=== PATIENT | female | born 1960 | race Caucasian/White ===

== ENCOUNTER 2025-01-11 17:23 | Inpatient (IN) | payer OTHER, MEDICAID, SELFPAY ==
[2025-01-11] VITALS (9 sets, daily range): BP systolic 103–141; BP diastolic 63–80; PULSE 95–107; RESP 14–29; TEMP 36.4–36.9; O2SAT 94–100; BMI 16.6
--- NOTE | ~2025-01-11 | XR_ITS ---
CHEST RADIOGRAPH, PA AND LATERAL CLINICAL HISTORY: SOA . COMPARISON: 09/07/2018 TECHNIQUE: PA and lateral views of the chest. FINDINGS Right internal jugular tunneled hemodialysis catheter identified with its tip projecting over the rig ht atrium. The remainder of the cardiomediastinal silhouette is otherwise unremarkable. Increased interstitial markings are identified bilaterally, findings suggesting mild pulmonary vascul ar congestion. The remainder of the lungs are otherwise clear. Left upper extremity vascular stenting identified. IMPRESSION: Mild pulmonary vascular congestion, without focal infiltrate or effusion. Reviewed, dictated and finalized at location A. AL RESIDENT
--- NOTE | ~2025-01-11 | XR_ITS ---
HISTORY: trauma COMPARISON: None TECHNIQUE: 2 views of the right hip along with an AP view of the pelvis FINDINGS: Acute fracture of the right femoral neck is identified. Minimal displacement of the fracture fragments is noted. Prior fracture deformity is suspected within the right inferior pubic ramus Screw fixation of the left femur is present. Age advanced mineralization. IMPRESSION: Acute minimally displaced fracture of the right femoral neck, as detailed above. Reviewed, dictated and finalized at location A. ICE OR WORK DISPATCHER IMPRESSION: Acute minimally displaced fracture of the right femoral neck, as de tailed above.
--- NOTE | ~2025-01-11 | XR_ITS ---
EXAMINATION: XR surgery orthopedic DATE: 01/14/2025 16:45 DRYCLEANER INDICATION: RIGHT HIP PINNING . TECHNIQUE: 2 fluoroscopic images of the right hip were obtained during right hip pinning, performed b brennon Jarquin. I was not present during the procedure. Fluoroscopy exposure time was 5 minutes 49.5 s econds. Air Kerma 37.972 mGy. DAP 7.5275 mGym2. COMPARISON: X-ray right hip 01/11/2025 FINDINGS/IMPRESSION: Fluoroscopic documentation of right hip pinning. Please refer to the operative note for complete proc edural details . Reviewed, dictated and finalized at location K. LEANER
--- NOTE | ~2025-01-11 | XR_ITS ---
HISTORY: trauma COMPARISON: None TECHNIQUE: 3 views of the right knee were performed FINDINGS: No acute or subacute fracture, erosion, lytic or sclerotic lesion. Medial tibiofemoral joint space narrowing is identified. No suprapatellar joint effusion is identified. The infrapatellar joint space is clear. IMPRESSION: Degenerative disease without acute fracture. Reviewed, dictated and finalized at location A. RESSOR REPAIRER
--- OUTSIDE RECORDS SUMMARY | 2025-01-11 17:32 | XMS_ITS ---
Author Organization [facility] Address [address] [place] [address] Care Team Providers Care Television Parts Tester Name Role Phone Chinedu Felton MD Primary Care Provider [phone] Darrian Reese MD Unavailable [phone] Manuel Okeefe DO Unavailable [phone] Dialysis Access Sites Type Status Location Placement Date Removal Da te AV fistula Active Left Upper Arm - Anterior 07/07/2022 AV graft Active Left Upper Arm - Anterior 05/31/2022 Hemodialysis Cath Double Inactive Right N pat (side) - Anterior 03/14/2022 08/18/2022 Procedures Procedure Name Priority Date/Time Associated Diagnosis Comments HEPATITIS PANEL, ACUTE STAT 03/14/2022 3:35 PM CDT from Last 3 Months or Most Recently Relevant to Health Maintenance Allergies No known active allergies Medications albuterol HFA (PROVENTIL HFA,VENTOLIN HFA,PROAIR HFA) 90 mcg/actuation inhaler Inhale 2 puffs every 4 (four) hours as needed Active budesonide-formote roL (SYMBICORT) 160-4.5 mcg/actuation inhaler Inhale 2 puffs 4 (four) times a day Active ergocalciferol (VITAMIN D) 50,000 unit capsuleIndications :Vitamin D Deficiency Take 1 capsule (50,000 Units total) by mouth every 30 (thirty) days Taken every Monday Active hydrocortisone 2.5 % cream Apply 1 application topically daily as needed for irritation (back prn may leave at bedside) Active ipratropium-albute roL (DUO-NEB) 0.5-2.5 mg/3 mL nebulizer solutionIndication s:Chronic Obstructive Pulmonary Disease with Bronchospasms Take 2.5 mL by nebulization every 6 (six) hours as needed for wheezing Active oxygenIndications: Dyspnea Administer 3 L/min into each nostril as needed States is on 3L continuously Active rOPINIRole XL (REQUIP XL) 2 mg 24 hr tablet Take 1 tablet (2 mg total) by mouth nightly 06/10/20 22 Active traZODone (DESYREL) 100 mg tabletIndications: insomnia associated with depression Take 1 tablet (100 mg total) by mouth nightly 06/10/20 22 Active FLUoxetine (PROzac) 40 mg capsule Take 1 capsule (40 mg total) by mouth daily 06/24/20 22 Active gabapentin (NEURONTIN) 300 mg capsule Take 2 capsules (600 mg total) by mouth 4 (four) times a day 600 mg taking 3 times daily 06/24/20 22 Active magnesium oxide (MAG-OX) 400 mg (241.3 mg elemental magnesium) tabletIndications: hypomagnesemia Take 1 tablet (400 mg total) by mouth 2 (two) times a day Active doxepin (SINEquan) 100 mg capsule Take 1 capsule (100 mg total) by mouth nightly Active sodium bicarbonate 650 mg tablet Take 1 tablet (650 mg total) by mouth 2 (two) times a day 06/10/20 20 Active lidocaine (LMX) 4 % cream 1 application as needed TO PAINFUL RASH ON TRUNK Externally FOUR TIMES PER DAY Active Spiriva with HandiHaler 18 mcg per inhalation capsuleIndications :Maintenance Therapy for Asthma 1 puff (1 capsule total) daily Active clotrimazole 1 % cream Apply 1 Application topically daily as needed Applies around stoma wafer- reddenned rash 02/04/20 23 Active OLANZapine (ZyPREXA) 10 mg tablet 07/26/20 23 Active lamoTRIgine (LaMICtal) 100 mg tablet 07/26/20 23 Active clonazePAM (KlonoPIN) 0.5 mg disintegrating tablet Take 1 tablet (0.5 mg total) by mouth 2 (two) times a day as needed for seizures Active carbidopa-levodopa (SINEMET) 10-100 mg per tablet every 8 hours 09/27/20 23 Active ketoconazole (NIZORAL) 2 % cream daily Active sevelamer (RENVELA) 800 mg tablet 08/08/20 Active mirtazapine (REMERON ESTHELA-TAB) 30 mg disintegrating tablet 09/05/20 Active nystatin powder Apply topically daily 09/12/20 Active pregabalin (LYRICA) 150 mg capsule 1 capsule (150 mg total) 09/19/20 Active QUEtiapine (SEROquel) 25 mg tablet every 12 hours Activ e methylPREDNISolone (Medrol, Christoph,) 4 mg DosepackIndication s:Chronic obstructive pulmonary disease with acute exacerbation ([facility]) follow package directions 1 packet 10/03/20 Active Additional Information Patient not taking.Reported on 03/19/2024 Active Problems Problem Noted Date Diagnosed Date ESRD (end stage renal disease) on dialysis 07/20 Assessment & Plan (11/28/2023 3:20 PM WIRELESS CELLULAR TECHNICIAN): Maturing right arm AV fistula. May start utilizing right arm AV fistula for dialysis. Follow-up in 1 month for re-evaluation, possible Perma catheter removal Assessment & Plan (08/31/2023 2:02 PM CDT): Impression: Patient underwent a right brachiocephalic AV fistula creation. She is currently being dialyzed through a right-sided Perma catheter without any complications. Surgical incision to the antecubital fossa is well approximated, healed. Small remnant of suture was noted and removed. Audible bruit and palpable thrill noted on exam. Plan: Continue utilizing right-sided Perma catheter for dialysis as per Nephrology. -we will have patient follow-up in 6-8 weeks for re-evaluation with AV scan. ESRD (end stage renal disease) ([facility]/HCC) 022 Assessment & Plan (08/08/2023 10:31 AM CDT): Cellulitis to the left lower extremity has resolved. No signs of acute infection to either lower extremity. Plan: Can continue to follow-up in 2 days for surgery for a graft creation. Assessment & Plan (07/20/2023 2:42 PM CDT): Patient following up today regarding permanent access creation needed for the right upper extremity. She has had multiple attempts at permanent access to the left upper extremity which is currently thrombosed and for which she has previously underwent a thrombectomy x2, and canceled her 3rd thrombectomy due to being admitted at [facility] and is just now following up. She being dialyzed through a right IJ Perma catheter. Vein mapping today shows that her veins are sizable for potential fistula creation. Discussed the procedure with all of its potential risks for new access creation throughout upper extremity fistula versus graft. Answered all questions at this time. She is agreeable wishes to proceed. Will schedule a new dialysis access creation to right upper extremity with Dr. Franklyn Rojo. Assessment & Plan (01/06/2023 12:09 PM WIRELESS CELLULAR TECHNICIAN): Patient is following up today for loss of bruit and thrill. She is status post thrombectomy of her brachial axillary graft 01/05/2023. Sutures are intact today. Mild ecchymosis noted to the left upper extremity. She is scheduled for a Perma catheter placement today and will be scheduled for open thrombectomy next week with Dr. Star Rojo. Patient has been made aware of the plan. She is agreeable. Assessment & Plan (07/28/2022 4:24 PM CDT): Status post fistulogram 3 weeks ago had a thrombectomy with stent placed on 10/16/2022. Has been utilizing the graft without issue for the past 3 weeks. Is here to have the suture removal and discussion of Perma catheter being removed. Primary catheter is in the right IJ placed by Dr. Clemons 03/14/2022. Assessment & Plan (06/14/2022 4:13 PM CDT): Patient is status post creation or left brachial artery access vein graft created on 05/31/2022. Patient is here the access center to have the stitches and junaid removed scans today show no outflow stenosis. Patient encouraged to start using the graft to [place] and return within 2-3 weeks to have her Perma catheter removed. Plan: Continue dialysis as per nephrology utilizing the left AV graft. Assessment & Plan (05/17/2022 12:39 PM CDT): Risks benefits alternatives to left upper extremity fistula versus graft creation were discussed. Risks including bleeding, infection, nerve injury, steal syndrome, need for further surgery. She wished to proceed. Acute on chronic renal insufficiency 03/12/2022 Age related osteoporosis 03/12/2022 Anxiety state 03/12/2022 Cataract 03/12/2022 Chronic pain syndrome 03/12/2022 Chronic respiratory failure 03/12/2022 Colostomy and enterostomy malfunction (CMS/[facility]) 03/12/2022 Essential hypertension 03/12/2022 Assessment & Plan (08/08/2023 10:29 AM CDT): Continue current medical management. Assessment & Plan (07/20/2023 2:37 PM CDT): Continue medical management as per PCP Assessment & Plan (07/28/2022 4:24 PM CDT): Chronic stable hypertension being controlled with medications. Continue taking medication as per Nephrology and PCP. Assessment & Plan (06/14/2022 4:13 PM CDT): Stable chronic hypertension that is being controlled with medications. Plan: Continue taking medications as per PCP. Generalized anxiety disorder 03/12/2022 Hyperparathyroidism due to renal insufficiency 0 03/12/2022 Hyperphosphatemia 03/12/2022 Lumbar radiculopathy 03/12/2022 Nicotine dependence, unspecified, uncomplicated 03/12/2022 Obesity 03/12/2022 Poor vision 03/12/2022 Primary insomnia 03/12/2022 Restless legs syndrome 03/12/2022 Vitamin D deficiency 03/12/2022 Fracture of pubis 02/24/2022 Pain in pelvis 02/24/2022 Major depressive disorder 07/20/2020 Severe recurrent major depre ssion without psychotic features 06/10/2019 Bradycardia 06/04/2019 High output ileostomy (CMS/HCC) 08/29/2018 Irritant contact dermatitis due to ileostomy ([facility]/HCC) 08/29/2018 Asthma 04/14/2010 Chronic obstructive pulmonary disease 02/16/2010 Immunizations Name Administration Dates Next Due Heplisav-b (Hepatitis B) 04/27/2022,03/23/2022 Influenza, Quadrivalent, Spl it, Preservative Free, Intramuscular 08/25/2021 Influenza, Trivalent, Preser vative Free, Intramuscular 10/10/2017 Moderna SARS-CoV-2 Monovalen t Vaccination (12+ YRS) 02/25/2022,04/08/2021,03/11/2021 Social History Tobacco Use Types Packs/Day Years Used Date Smoking Tobacco: Every Day Cigarettes 0.5 45 Smokeless Tobacco: Never Tobacco Cessation:Ready to Q uit: Not Asked; Counseling Given: Not Answered Comments:last smoked 9-14 am Alcohol Use Standard Drinks/Week Comments Yes 0 (1 standard drink = 0.6 oz pur e alcohol) occasional AUDIT-C Answer Date Recorded Q1: How often do you have a drink containing alc ohol? Never 08/10/2023 Average Number of Drinks Not on file 023 Frequency of Binge Drinking Not on file 07/28 Personal Safety Answer Date Recorded Have you ever been in or are you currently in a harmful physical or emotional relationship or is someone making you feel afraid or unsafe? Denies 08/10/2023 Comments Unknown Sex and Gender Information Value Date Recorded Sex Assigned at Not on file Legal Sex Female 8:56 AM WIRELESS CELLULAR TECHNICIAN Gender Identity Not on file Sexual Orientation Not on file Last Filed Vital Signs Vital Sign Reading Time Taken Comments Blood Pressure 102/65 11/28/2023 2:51 PM WIRELESS CELLULAR TECHNICIAN Pulse 84 11/28/2023 2:51 PM WIRELESS CELLULAR TECHNICIAN Temperature 36.8 C (98.2 F) 11/28/2023 2:51 PM WIRELESS CELLULAR TECHNICIAN Respiratory Rate 18 10/03/2023 11:20 AM WIRELESS CELLULAR TECHNICIAN Oxygen Saturation 98% 11/28/2023 2:51 PM WIRELESS CELLULAR TECHNICIAN 4 L daILY Inhaled Oxygen Concentration - - Weight 68 kg (150 lb) 11/28/2023 2:51 PM WIRELESS CELLULAR TECHNICIAN Height 162.6 cm (5' 4 ) 11/28/2023 2:51 PM WIRELESS CELLULAR TECHNICIAN Body Mass Index 25.75 11/28/2023 2:51 PM WIRELESS CELLULAR TECHNICIAN Results * Hepatitis panel, acute (03/14/2022 3:35 PM CDT) Hep A IgM Nonreactive Nonreactive CERNER Comment: Interpretive Data: If Hep A IgM Ab is reported as Equivocal, a new sample should be drawn in two weeks for testing. Current interpretive data was last revised on 20. Hep B core IgM Nonreactive Nonreactive MIRIAM Comment: Interpretive Data If HepB Core IgM Ab is reported as Equivocal, a new sample should be drawn in two weeks for testing. Current interpretive data was last revised on 20. Hep C Ab Nonreactive Nonreactive MIRIAM Comment: Interpretive Data Nonreactive: Antibodies to HCV not detected. Does NOT exclude the possibility of recent exposure to HCV. Equivocal: Equivocal for HCV antibodies. Supplemental molecular testing will be automatically performed to determine infection status in accordance with current CDC screening recommendations. Reactive: Positive for HCV antibodies. This may represent current or past HCV infection. Supplemental molecular testing will be automatically performed to determine current infection status in accordance with current CDC screening recommendations. Interpretive data was last revised on 2020. HepBsAg Nonreactive Nonreactive MIRIAM Blood 03/14/2022 3:35 PM CDT 03/14/2022 3:47 PM CDT us Lux Merino MD LAB MICROBIOLOGY - GENERAL ORD ERABLES Final Result MIRIAM [facility] [id number] Department [place] [address] from Last 3 Months or Most Recently Relevant to Health Maintenance
--- OUTSIDE RECORDS SUMMARY | 2025-01-11 17:32 | XMS_ITS ---
Author Organization [facility] Address [address] [place] [address] Care Team Providers Care Funeral Location Manager Name Role Phone Chinedu Felton Primary Care Provider [phone] REASON FOR VISIT pain and refill Medications Medication SIG (Take, Route, Fr equency, Duration) Notes Start Date End Date Status rOPINIRole HCl 0.5 MG 1 tablet 1 to 3 ho urs before bedtime Orally Once a day for 30 days 09/05/2024 Active HYDROmorphone HCl 4 MG 1 tablet as needed Orally EVERY 4 HOURS As needed SEVERE PAIN OR SHORTNESS OF BREATH 01/02/2025 Active Social History Sex Assigned At : Social History Observation Description Sex Assigned At Female Encounters Encounter Location Date Provider Diagnosis [address] [id number] 01/02/2025 Chinedu Felton Chronic pain syndrome G89.4 and Restless leg syndrome G25.81 Assessments Encounter Date Diagnosis (ICD Code) Assessment Notes Treatment Notes Treatment Clinical Notes Section Notes 01/02/2025 Chronic pain syndrome (ICD-10 - G89.4) 01/02/2025 Restless leg syndrome (ICD-10 - G25.81) Plan Of Treatment Medication Medication Name Sig Start Date Stop Date Notes rOPINIRole HCl 0.5 MG 1 tablet 1 to 3 ho urs before bedtime Orally Once a day for 30 days 09/05/2024 HYDROmorphone HCl 4 MG 1 tablet as neede d Orally EVERY 4 HOURS 01/02/2025 Progress Notes * Brian ZALDIVARDOB: 1 (64 yo F)Acc No.[id number]:01/02/2025 Patient: Brian PRICE :1960 A ge:64 Y S ex:Female Address:[address] [place] [address] [place], [address] * Refills Refill HYDROmorphone HCl Tablet, 4 MG, Orally, 28, 1 tablet as needed, EVERY 4 HOURS, Refills=0 Refill rOPINIRole HCl Tablet, 0.5 MG, Orally, 30, 1 tablet 1 to 3 hours before bedtime, Once a day, 30 days, Refills=5 * true * Date: Generated for Gris leung/Bridget/Pedroitting on: 0 01/11/2025 05:32 PM BUSINESS SUPPORT SPECIALIST
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
--- OUTSIDE RECORDS SUMMARY | 2025-01-11 17:32 | XMS_ITS | Patient Health Record ---
Author Organization [facility] Address [address] [place] [address] Support Name Relationship Address Phone JESUS ZALDIVAR Guarantor Unknown [phone] Reason For Referral No Information Medications Medication SIG (Take, Route, Frequency, Duration) Notes Start Date End Date Status Pentazocine-Naloxone HCl 50-0.5 MG 1 tablet as needed Orally every 6 hrs for 30 days FOR SEVERE CHRONIC/NON-ACUT E PAIN 01/13/2020 Active clonazePAM 0.5 MG 1 tablet Orally twic e a day for 30 days 12/09/2019 Active HYDROcodone-Acetamino phen 5-325 MG 2 tablets as needed Orally every 6 hrs for 30 days FOR SEVERE CHRONIC/NON-ACUT E PAIN 12/30/2019 Active clonazePAM 0.5 MG 1 tablet as needed Orally twice a day for 30 days 11/21/2019 Active Problems Problem Type SNOMED Code ICD Code Onset Dates Problem Status W/U Status Risk Notes Problem Fibromyalgia (959042950) Fibromyalgia (M79.7) Active confirmed Problem Recurrent falls (384749483) Frequent falls (R29.6) Active confirmed Problem COPD - Chronic obstructive pulmonary disease (68314516) COPD (chronic obstructive pulmonary disease) (J44.9) Active confirmed Problem Anxiety (26895191) Anxiety (F41.9) Active confirmed Problem Diabetes mellitus (93107273) Diabetes mellitus (E11.9) Active confirmed Problem 947245642 S/p left hip fracture (Z87.81) Active confirmed Problem Chronic kidney disease stage 4 (549494297) CKD (chronic kidney disease), stage IV (N18.4) Active confirmed Problem 147103981 Closed fracture of left hip requiring operative repair with routine healing (S72.002D) Active confirmed Plan Of Treatment No Information Medical (General) History Medical History History ICD Code Left hip fracture s/p ORIF massive GI bleed short bowel syndrome CKD stage 3 COPD Diabetes melitus fibromyalgia chronic pain SURGICAL HISTORY: appendecto my, cholecystectomy, Left hip ORIF, bowel resection FAMILY HISTORY: reviewed and non contrib utory SOCIAL HISTORY: current smok er- smoking 1 ppd, denies alcohol or drug use but is dependent on narcotic pain medications
--- OUTSIDE RECORDS SUMMARY | 2025-01-11 17:32 | XMS_ITS | Referral Summary ---
Author Organization [facility] Address [address] [place] [address] Care Team Providers Care Phonograph Needle Tip Maker Name Role Phone Chinedu Felton MD Primary Care Provider [phone] Darrian Reese MD Unavailable [phone] Manuel Okeefe DO Unavailable Allergies No known [...] 07/20 Assessment & Plan (11/28/2023 3:20 PM MAILHOUSE OPERATOR): Maturing right arm AV fistula. May start [...] AV scan. ESRD (end stage renal disease) ([facility]) 022 Assessment & Plan (08/08/2023 10:31 AM [...] 3rd thrombectomy due to being admitted at [facility] and is just now following up. [...] Rojo. Assessment & Plan (01/06/2023 12:09 PM MAILHOUSE OPERATOR): Patient is following up today for loss [...] respiratory failure 03/12/2022 Colostomy and enterostomy malfunction ([facility]) 03/12/2022 Essential hypertension 03/12/2022 [...] features 06/10/2019 Bradycardia 06/04/2019 High output ileostomy ([facility]) 08/29/2018 Irritant contact dermatitis due to ileostomy ( S/[facility]) 08/29/2018 Asthma 04/14/2010 Chronic obstructive pulmonary disease [...] on file Legal Sex Female 8:56 AM MAILHOUSE OPERATOR Gender Identity Not on file Sexual Orientation Not on file Last Filed Vital Signs Vital Sign Reading Time Taken Comments Blood Pressure 102/65 11/28/2023 2:51 PM MAILHOUSE OPERATOR Pulse 84 11/28/2023 2:51 PM MAILHOUSE OPERATOR Temperature 36.8 C (98.2 F) 11/28/2023 2:51 PM MAILHOUSE OPERATOR Respiratory Rate 18 10/03/2023 11:20 AM MAILHOUSE OPERATOR Oxygen Saturation 98% 11/28/2023 2:51 PM MAILHOUSE OPERATOR 4 L daILY Inhaled Oxygen Concentration - - Weight 68 kg (150 lb) 11/28/2023 2:51 PM MAILHOUSE OPERATOR Height 162.6 cm (5' 4 ) 11/28/2023 2:51 PM MAILHOUSE OPERATOR Body Mass Index 25.75 11/28/2023 2:51 PM MAILHOUSE OPERATOR Plan of Treatment Not on file Medical Devices Implanted Type Area Incising Machine Operator Device Identifier Shelf Expiration Date Model / Serial / Lot Angio Dynamics Kit Catheter Hemodialysis Valved Sheath Tri Ball Tunneler Duramax [id number] Polyurethane [id number] - [id number] - [id number] Implanted:Qty: 1 on 03/14/2022 at [facility] Catheter Angio Dynamics 03/27/2024 [id number] / [id number] / Unknown Left: Hip Wl [employer] 4-7mm 45cm Stretch Peripheral Standard Security Auditor Graft Vascular [id number] - [id number] - [id number] Implanted:Qty: 1 on 05/31/2022 by Franklyn Rojo MD at [facility] Left: Arm Wl [employer] [id number] 02/05/2027 [id number] / [id number] / Bard Peripheral Vascular Stent Graft Endovascular Arteriovenous [id number] Covera [id number] - [id number] Implanted:Qty: 1 on 07/07/2022 by Franklyn Rojo MD at [facility] Left: Arm Bard Peripheral Vascular [id number] 05/07/2023 [id number] / / [id number] Bard Peripheral Vascular Stent Graft Endovascular Arteriovenous [id number] Covera [id number] - [id number] Implanted:Qty: 1 on 01/05/2023 by Franklyn Rojo MD at [facility] Bard Peripheral Vascular 07/29/2024 [id number] / / [id number] Angio Dynamics Duraflow Embosafe 15.5fr 24cm Basic 2 Lumen Kit Catheter [id number] - [id number] Implanted:Qty: 1 on 01/06/2023 by Franklyn Rojo MD at [facility] Angio Dynamics [id number] / / Procedures Procedure Name Priority Date/Time Associated Diagnosis Comments HEPATITIS PANEL, ACUTE STAT 03/14/2022 3:35 PM CDT from Last 3 Months or Most Recently Relevant to Health Maintenance Results * Hepatitis panel, acute (03/14/2022 3:35 PM CDT) Hep A IgM Nonreactive Nonreactive [facility] Comment: Interpretive Data: If Hep A IgM [...] revised on 2020. HepBsAg Nonreactive Nonreactive [facility] Blood 03/14/2022 3:35 PM CDT 03/14/2022 3:47 PM CDT us Lux Merino MD LAB MICROBIOLOGY - GENERAL ORD ERABLES Final Result [place] [id number] [address] Department [place] [address] from Last 3 Months or Most Recently Relevant to Health Maintenance Insurance MEDICARE [facility] IDPA IDPA [employer] ADV[employer] CHOICE PPO Advance Directives For more information, please contact: [phone] * Full Code (Latest Code Status on File) Date Activated Date Inactivated Comments 03/12/2022 6:49 AM 03/17/2022 7:32 PM Care Teams Phonograph Needle Tip Maker Relationship Specialty Start Date End Date Chinedu Felton MD [address] [facility] [place] [address] PCP - General 03/11/22 Darrian Reese MD [address] [place] [address] Consulting Physician Internal Medicine 06/30/22 Manuel Okeefe DO [address] [place] [address] Family Medicine 03/19/24
--- OUTSIDE RECORDS SUMMARY | 2025-01-11 17:32 | XMS_ITS | Encounter Summary ---
Author Organization [facility] Healthcare Address [address] [place] [address] Care Team Providers Care Technical Operations Vice President Name Role Phone Chinedu Felton MD Primary Care Provider [phone] Darrian Reese MD Unavailable [phone] Manuel Okeefe DO Unavailable [phone] Encounter Details Date Type Department Care Team (Late st Contact Info) Description 02/09/2023 Telephone [facility] Medical Office Building [address] [place] [address] Franklyn Rojo MD [facility] [address] [place], [place] [id number] Social History Tobacco Use Types Packs/Day Years Used Date Smoking Tobacco: Every Day Cigarettes 0.5 45 Smokeless Tobacco: Never Comments:last smoked yesterd ay Alcohol Use Standard Drinks/Week Comments Yes 0 (1 standard drink = 0.6 oz pur e alcohol) occasional AUDIT-C Answer Date Recorded Q1: How often do you have a drink containing alcohol? Never 02/08/2023 Q2: How many drinks containi ng alcohol do you have on a typical day when you are drinking? Patient does not drink Q3: How often do you have si x or more drinks on one occasion? Never 02/08/2023 Comments Unknown Sex and Gender Information Value Date Recorded Sex Assigned at Not on file Legal Sex Female 8:56 AM GROUND SERVICE EQUIPMENT MECHANIC Gender Identity Not on file Sexual Orientation Not on file documented as of this encounter Plan of Treatment Not on file documented as of this encounter Visit Diagnoses Not on filedocumented in this encounter Care Teams Technical Operations Vice President Relationship Specialty Start Date End Date Chinedu Felton MD [address] [facility] [place] [address] PCP - General 03/11/22 Darrian Reese MD [address] [place] [address] Consulting Physician Internal Medicine 06/30/22 Manuel Okeefe DO [address] [place] [address] Family Medicine 03/19/24 documented as of this encounter
--- OUTSIDE RECORDS SUMMARY | 2025-01-11 17:32 | XMS_ITS | Encounter Summary ---
Author Organization [facility] Healthcare Address [address] [place] [address] Care Team Providers Care Cold Strip Roller Name Role Phone Chinedu Felton MD Primary Care Provider [phone] Darrian Reese MD Unavailable [phone] Manuel Okeefe DO Unavailable [phone] Encounter Details Date Type Department Care Team (Late st Contact Info) Description 01/18/2023 Telephone [facility] [address] [facility] [address] [place] [address] [place] [address] [place] [address] [address] [place] [address] Social History Tobacco Use Types Packs/Day Years Used Date Smoking Tobacco: Every Day Cigarettes 0.4 45 Smokeless Tobacco: Never Comments:last smoked yesterd ay Alcohol Use Standard Drinks/Week Comments Yes 0 (1 standard drink = 0.6 oz pur e alcohol) occasional AUDIT-C Answer Date Recorded Q1: How often do you have a drink containing alcohol? Never 01/19/2023 Q2: How many drinks containi ng alcohol do you have on a typical day when you are drinking? Patient does not drink Q3: How often do you have si x or more drinks on one occasion? Never 01/19/2023 Comments Unknown Sex and Gender Information Value Date Recorded Sex Assigned at Not on file Legal Sex Female 8:56 AM AUTOMOTIVE CUSTOMER EXPERIENCE ADVISOR Gender Identity Not on file Sexual Orientation Not on file documented as of this encounter Plan of Treatment Not on file documented as of this encounter Visit Diagnoses Not on filedocumented in this encounter Care Teams Cold Strip Roller Relationship Specialty Start Date End Date Chinedu Felton MD [address] [facility] [place] [place] [address] PCP - General 03/11/22 Darrian Reese MD [address] [place] [address] Consulting Physician Internal Medicine 06/30/22 Manuel Okeefe DO [address] [place] [address] Family Medicine 03/19/24 documented as of this encounter
--- OUTSIDE RECORDS SUMMARY | 2025-01-11 17:32 | XMS_ITS | Encounter Summary ---
Author Organization [facility] Healthcare Address [address] [place] [address] Care Team Providers Care First Front Ventilator Name Role Phone Chinedu Felton MD Primary Care Provider [phone] Darrian Reese MD Unavailable [phone] Manuel Okeefe DO Unavailable [phone] Encounter Details Date Type Department Care Team (Late st Contact Info) Description 01/06/2023 Telephone [facility] [address] [facility] [address] [place] [address] [place] [address] [place] [address] [address] [place] [address] Social History Tobacco Use Types Packs/Day Years Used Date Smoking Tobacco: Every Day Cigarettes 0.4 45 Smokeless Tobacco: Never Comments:last smoked yesterd ay Alcohol Use Standard Drinks/Week Comments Yes 0 (1 standard drink = 0.6 oz pur e alcohol) occasional AUDIT-C Answer Date Recorded Q1: How often do you have a drink containing alcohol? Never 01/05/2023 Q2: How many drinks containi ng alcohol do you have on a typical day when you are drinking? Patient does not drink Q3: How often do you have si x or more drinks on one occasion? Never 01/05/2023 Comments Unknown Sex and Gender Information Value Date Recorded Sex Assigned at Not on file Legal Sex Female 8:56 AM SCIENTIFIC DIRECTOR Gender Identity Not on file Sexual Orientation Not on file documented as of this encounter Plan of Treatment Not on file documented as of this encounter Visit Diagnoses Not on filedocumented in this encounter Care Teams First Front Ventilator Relationship Specialty Start Date End Date Chinedu Felton MD [address] [facility] [place] [address] PCP - General 03/11/22 Darrian Reese MD [address] [place] [address] Consulting Physician Internal Medicine 06/30/22 Manuel Okeefe DO [address] [place] [address] Family Medicine 03/19/24 documented as of this encounter
--- OUTSIDE RECORDS SUMMARY | 2025-01-11 17:32 | XMS_ITS | Encounter Summary ---
Author Organization [facility] Healthcare Address [address] [place] [address] Care Team Providers Care Cheesemaker Helper Name Role Phone Chinedu Felton MD Primary Care Provider [phone] Darrian Reese MD Unavailable [phone] Manuel Okeefe DO Unavailable [phone] Encounter Details Date Type Department Care Team (Late st Contact Info) Description 07/20/2023 Telephone [facility] [address] [facility] [address] [place] [address] [place] [address] [place] [address] [address] [place] [address] Social History Tobacco Use Types [...] on file Legal Sex Female 8:56 AM COP WINDER Gender Identity Not on file Sexual Orientation Not on file documented as of this encounter Plan of Treatment Not on file documented as of this encounter Visit Diagnoses Not on filedocumented in this encounter Care Teams Cheesemaker Helper Relationship Specialty Start Date End Date Chinedu Felton MD [address] [facility] [place] [address] PCP - General 03/11/22 Darrian Reese MD [address] [place] [address] Consulting Physician Internal Medicine 06/30/22 Manuel Okeefe DO [address] [place] [address] Family Medicine 03/19/24 documented as of this encounter
--- OUTSIDE RECORDS SUMMARY | 2025-01-11 17:32 | XMS_ITS ---
Author Organization [facility] Address [address] [place] [address] Care Team Providers Care Channel Man Name Role Phone Chinedu Felton Primary Care Provider [phone] REASON FOR VISIT rectum issues Social History Sex Assigned At : Social History Observation Description Sex Assigned At Female Encounters Encounter Location Date Provider Diagnosis [address] [place] [address] 01/07/2025 Chinedu Felton Plan Of Treatment No Information Progress Notes * Brian ZALDIVARDOB: (64 yo F)Acc No.[id number]:01/07/2025 Patient: Brian PRICE :1960 A ge:64 Y S ex:Female Address:[address] [place] [address], [id number] * true * Date: Generated for Printi ng/Faxing/eTransmitting on: 0 01/11/2025 05:31 PM FINANCIAL EXAMINER
--- NOTE | 2025-01-11 17:33 | ED_ITS ---
HPI - Fall General Chief Complaint: Fall Stated Complaint: FALL History of Present Illness HPI Narrative: Patient is a 64-year-old female who presents ER with right hip pain. She was walking in her kitchen when she tripped and fell on the right side. She struck her right hip and knee on the ground. Has pain with range of motion of the right hip. She did not strike her head or lose consciousness. She is not on blood thinning medication. Unable to get up and had call an ambulance. Patient also reports mild shortness of breath related to her COPD. Chronically O2 dependent. Receives dialysis Monday//Monday and she did get her full treatment today. Related Data Allergies Allergy/AdvReac Type Severity Reaction Status Date / Time No Known Allergies Allergy Verified 01/11/25 17:26 Review of Systems Review of Systems: All systems reviewed & are unremarkable except as noted in HPI and below Constitutional: Constitutional: Reports no additional constitutional complaints Cardiovascular: Cardiovascular: Reports no additional cardiovascular complaints Respiratory: Respiratory: Reports no additional respiratory complaints Musculoskeletal: Musculoskeletal: Denies back pain, Reports arthralgias and Denies joint swelling Neurologic: Reports system reviewed and no additional complaints, except as documented [facility] Past Medical History Medical History (Updated 01/11/25 @ 18:42 by Miguelito Sherwood MD) History of vertebral fracture Anxiety Chronic kidney disease COPD (chronic obstructive pulmonary disease) Surgical History Surgical History (Updated 01/11/25 @ 18:40 by Miguelito Sherwood MD) History of colectomy History of hip surgery Family History Family History (Updated 06/08/18 @ 13:32 by DOCTOR UNKNOWN) Mother Patient's mother is in good health Sibling Patient's sister is in good health Patient's brother is in good health Father Family history of lung cancer Social History Social History Smoking status: Never smoker Alcohol intake: current Exam Narrative: GENERAL: Chronically ill-appearing, thin, and in no acute distress. HEAD: Normocephalic, atraumatic. ENT: Mucous membranes moist. CHEST: Clear to auscultation. No respiratory distress. HEART: Regular rate and rhythm. Normal peripheral pulses. ABDOMEN: Soft, nontender, nondistended. EXTREMITIES: Limited range of motion right lower extremity at the hip due to pain. Bruising over the right anterior weinberg. SKIN: Warm, dry, no rash. NEURO: Alert and oriented x3. PSYCH: Normal mood and affect. Course Course Emergency Course: Patient resting comfortably. Informed of results. Orthopedic surgery consulted. Admit to hospitalist service. NPO at midnight. Vital Signs Vital signs: Vital Signs Temperature 98.5 F 01/11/25 17:06 Pulse Rate 107 H 01/11/25 17:06 Respiratory Rate 20 01/11/25 17:06 Blood Pressure 138/75 01/11/25 17:06 Pulse Oximetry 100 01/11/25 17:06 Oxygen Delivery Room Air 01/11/25 17:06 Temperature 98.5 F 01/11/25 17:06 Pulse Rate 97 01/11/25 18:49 Respiratory Rate 18 01/11/25 18:49 Blood Pressure 131/75 01/11/25 18:49 Pulse Oximetry 100 01/11/25 18:49 Oxygen Delivery Room Air 01/11/25 17:06 MDM - Fall Imaging Data Radiologist's impression: ITS Impressions Chest X-Ray 01/11/25 18:24 IMPRESSION: Mild pulmonary vascular congestion, without focal infiltrate or effusion. Hip/Pelvis X-Ray 01/11/25 18:25 IMPRESSION: Acute minimally displaced fracture of the right femoral neck, as detailed above. Knee X-Ray 01/11/25 18:27 IMPRESSION: Degenerative disease without acute fracture. Discharge Plan Discharge Clinical Impression: Femoral neck fracture Patient Disposition: Still a Patient Condition: Stable Patient Language: Hungarian Follow-up/Referrals: UNKNOWN,DOCTOR [Primary Care Provider] -
--- OUTSIDE RECORDS SUMMARY | 2025-01-11 17:33 | XMS_ITS | Referral Summary ---
Author Organization [facility] Address [address] [place] [address] Care Team Providers Care Marine Pilot Name Role Phone Unavailable Primary Care Provider Unavailabl e Source Comments [facility],non-owned Affiliates and Associated Physician Practices is amultiple site organization consisting of ambulatory clinics and hospital sitesin [place], [place], [place] and [place]. This disclosure is being madepursuant to the Care Everywhere program and may not contain all information available regarding this patient. Last updated 18.[facility] Allergies No known active allergies Medications * Be aware that medications may not be up to date on this document. Alwaysverify current medications with the patient. Medication Sig Dispensed Refills Start Date End Date Status tiotropium (SPIRIVA) 18 MCG inhalation capsule Inhale 1 Cap by mouth daily. Active clonazePAM (KLONOPIN) 0.5 MG tablet Take 1 Tab by mouth 2 times daily. 10 0 04/16/2010 Active albuterol-ipratropium (COMBIVENT) 18-103 MCG/ACT inhaler Inhale 2 Puffs by mouth 4 times daily. 1month 2 04/16/2010 Active Centrum Silver TABS Take 1 Tab by mouth daily with food. Active lisinopril (PRINIVIL; ZESTRIL) 10 MG tablet Take 10 mg by mouth daily. Active theophylline CR 24hr (EDWARD-24) 400 MG capsule Take 400 mg by mouth 2 times daily. Active albuterol HFA (PROVENTIL;VENTOLIN;[place] OAIR) 108 (90 BASE) MCG/ACT inhaler Inhale 2 Puffs by mouth every 6 hours as needed Active predniSONE (DELTASONE) 20 MG tablet Take 1 Tab by mouth 2 times daily. 10 0 05/17/2010 Active doxycycline (VIBRAMYCIN) 100 MG capsule Take 1 Cap by mouth 2 times daily. 14 0 05/17/2010 Active Active Problems Problem Noted Date Diagnosed Date Asthma 04/14/2010 Social History Tobacco Use Types Packs/Day Years Used Date Smoking Tobacco: Every Day Cigarettes Comments:Pt states she used to smoke about 1 1/2 ppd since she was 16 y/o Alcohol Use Standard Drinks/Week Comments No 0 (1 standard drink = 0.6 oz pur e alcohol) Sex and Gender Information Value Date Recorded Sex Assigned at Not on file Gender Identity Not on file Sexual Orientation Not on file Last Filed Vital Signs Vital Sign Reading Time Taken Comments Blood Pressure 154/71 05/17/2010 7:30 PM CDT Pulse 92 05/17/2010 7:30 PM CDT Temperature 36.8 C (98.3 F) 05/17/2010 5:22 PM CDT Respiratory Rate 33 05/17/2010 7:30 PM CDT Oxygen Saturation 98% 05/17/2010 7:30 PM CDT Inhaled Oxygen Concentration 28% 04/15/2010 6 :30 AM CDT Weight 70.3 kg (155 lb) 05/17/2010 5:22 PM CDT Height 162.6 cm (5' 4 ) 05/17/2010 5:22 PM CDT Body Mass Index 26.61 05/17/2010 5:22 PM CDT Plan of Treatment Not on file Advance Directives * Full Code (Latest Code Status on File) Date Activated Date Inactivated Comments 04/15/2010 1:11 AM 04/17/2010 2:52 AM
--- OUTSIDE RECORDS SUMMARY | 2025-01-11 17:33 | XMS_ITS | Clinical Summary ---
Author Organization [facility] Address [address] [place] [address] Care Team Providers Care Pit Crane Operator Name Role Phone Unavailable Primary Care Provider Unavailabl e Source Comments [facility],non-owned Affiliates and Associated Physician Practices is amultiple site organization consisting of ambulatory clinics and hospital sitesin [place], [place], [place] and [place]. This disclosure is being madepursuant to the Care Everywhere program and may not contain all information available regarding this patient. Last updated 18.[facility] Allergies No known active allergies Medications * [...] mouth 2 times daily. Active albuterol HFA (PROVENTIL;VENTOLIN;WI OAIR) 108 (90 BASE) MCG/ACT inhaler Inhale [...] 05/17/2010 5:22 PM CDT Plan of Treatment Health Maintenance Due Date Last Done Comments COLOGUARD (AGES 45-75) - COL ON CA SCREENING 1960 COLON MONITORING 1960 COLONOSCOPY - COLON CA SCREENING 1961 CT COLONOGRAPHY - COLON CA SCREENING 1960 Colorectal Cancer Screening 1960 FIT - COLON CA SCREENING 1961 FLEX SIG - COLON CA SCREENING 1961 LIPID TESTING 1960 MAMMOGRAM 1960 MEDICARE AWV 12 MONTHS 1961 PAP SMEAR 1961 HIV SCREENING 1976 HEPATITIS C SCREENING 03/29/1979 DTAP/TDAP/TD VACCINES (1 - Tdap) 1980 PNEUMOCOCCAL VACCINE 50+ (1 of 2 - PCV) 1980 PNEUMOCOCCAL VACCINE (1 of 2 - PCV) 1980 ZOSTER VACCINE (1 of 2) 2011 Respiratory Syncytial Virus (RSV) Vaccine Pt: or over 60 yrs (1 - Risk 60-74 years 1-dose series) 2021 COVID-19 VACCINE (1 - 2023-2 5 season) 2024 INFLUENZA VACCINE (#1) 2024 DEPRESSION SCREENING 11/27/2024 HEPATITIS B VACCINE Aged Out No longe r eligible based on patient's age to complete this topic HIB VACCINE Aged Out No longer eligi ble based on patient's age to complete this topic HPV VACCINE Aged Out No longer eligi ble based on patient's age to complete this topic MENINGOCOCCAL (Group B) VACCINE Aged Out No longer eligible based on patient's age to complete this topic MENINGOCOCCAL VACCINE Aged Out No alex todd eligible based on patient's age to complete this topic Advance Directives * Full Code (Latest Code Status on File) Date Activated Date Inactivated Comments 04/15/2010 1:11 AM 04/17/2010 2:52 AM
--- OUTSIDE RECORDS SUMMARY | 2025-01-11 17:33 | XMS_ITS | Patient Health Summary ---
Author Organization [facility] Address [address] [place] [address] Care Team Providers Care Boat Hop Name Role Phone Unavailable Primary Care Provider Unavailabl e Note from [facility],non-owned Affiliates and Associated Physician Practices is amultiple site organization consisting of ambulatory clinics and hospital sitesin [place], [place], [place] and [place]. This disclosure is being madepursuant to the Care Everywhere program and may not contain all information available regarding this patient. Last updated 18.[facility] Allergies No known active allergies Medications * Be aware that medications may not be up to date on this document. Alwaysverify current medications with the patient. * tiotropium (SPIRIVA) 18 MCG inhalation capsule Inhale 1 Cap by mouth daily. * clonazePAM (KLONOPIN) 0.5 MG tablet(Started 04/16/2010) Take 1 Tab by mouth 2 times daily. * albuterol-ipratropium (COMBIVENT) 18-103 MCG/ACT inhaler(Started 04/16/2010) Inhale 2 Puffs by mouth 4 times daily. 2 refills left * Centrum Silver TABS Take 1 Tab by mouth daily with food. * lisinopril (PRINIVIL; ZESTRIL) 10 MG tablet Take 10 mg by mouth daily. * theophylline CR 24hr (EDWARD-24) 400 MG capsule Take 400 mg by mouth 2 times daily. * albuterol HFA (PROVENTIL;VENTOLIN;PROAIR) 108 (90 BASE) MCG/ACT inhaler Inhale 2 Puffs by mouth every 6 hours as needed * predniSONE (DELTASONE) 20 MG tablet(Started 05/17/2010) Take 1 Tab by mouth 2 times daily. * doxycycline (VIBRAMYCIN) 100 MG capsule(Started 05/17/2010) Take 1 Cap by mouth 2 times daily. Active Problems Problem Noted Date Diagnosed Date [...] Mass Index 26.61 05/17/2010 5:22 PM CDT Procedures * CARDIAC EKG ORDER(Performed 05/21/2010) * CARDIAC PACER/DEFIB ORDER(Performed 05/19/2010) * XR CHEST 1VW PORTABLE(Performed 05/17/2010) * B-TYPE NATRIURETIC PEPTIDE(Performed 05/17/2010) Performed for COPD Exacerbation (HCC) * TROPONIN I(Performed 05/17/2010) Performed for COPD Exacerbation (HCC) * COMPREHENSIVE METABOLIC PANEL(Performed 05/17/2010) Performed for COPD Exacerbation (HCC) * CBC W AUTO DIFFERENTIAL(Performed 05/17/2010) Performed for COPD Exacerbation (HCC) * CULTURE BLOOD(Performed 05/17/2010) * CULTURE BLOOD(Performed 05/17/2010) * COMPREHENSIVE METABOLIC PANEL(Performed 04/15/2010) Performed for Unspecified Asthma (Hcc) * CBC W AUTO DIFFERENTIAL(Performed 04/15/2010) Performed for Unspecified Asthma (Hcc) * XR CHEST 1VW PORTABLE(Performed 04/14/2010) * INITIATE RT BRONCHODILATOR PROTOCOL(Performed 04/14/2010) * COMPREHENSIVE METABOLIC PANEL(Performed 04/14/2010) * CBC W AUTO DIFFERENTIAL(Performed 04/14/2010) Results * CARDIAC EKG ORDER (05/21/2010 1:23 PM CDT) Narrative 05/21/2010 1:23 PM CDT Ordered by an unspecified provider. Transcriptions Document, Scanned - 05/17/2010 12:00 AM CDT Scanned Document CARDIAC SERVICES ORD ERABLES * CARDIAC PACER/DEFIB ORDER (05/19/2010 11:22 AM CDT) Narrative 05/19/2010 11:22 AM CDT Ordered by an unspecified provider. Transcriptions Document, Scanned - 05/17/2010 12:00 AM CDT Scanned Document CARDIAC SERVICES ORD ERABLES * XR CHEST 1VW PORTABLE (05/17/2010 5:41 PM CDT) Only the most recent of2 resultswithin the time period is included. Anatomical Region Laterality Modality Chest Radiographic Brynn ging 05/17/2010 6:07 PM CDT Narrative 05/18/2010 12:07 AM CDT PORTABLE CHEST INDICATION: Difficulty breathing Examination of the chest AP upright reveals slight prominence of the perihilar markings. No discrete active infiltrate or consolidation is noted on either side, however. The cardiac silhouette is normal in size with left ventricular prominence. Tortuosity and calcification of the aorta is noted. Procedure Note Mitchel Jones MD - 05/18/2010 PORTABLE CHEST INDICATION: Difficulty breathing Examination of the chest AP upright reveals slight prominence of the perihilar markings. No discrete active infiltrate or consolidation is noted on either side, however. The cardiac silhouette is normal in size with left ventricular prominence. Tortuosity and calcification of the aorta is noted. Estrella Plascencia MD DIAGNOSTIC IMAGING ORDERABLES * TROPONIN I (05/17/2010 5:15 PM CDT) Troponin I <0.10 SEE BELOW ng/ml [facility] Comment: Normal <0.10 [place]rix Zone 0.10-0.99 Positive >=1.00 SERUM OR PLASMA SPECIMEN / Unknown 05/17/2010 5:15 PM CDT 05/17/2010 5:32 PM CDT Narrative [facility] - 05/17/2010 6:01 PM CDT Perform on all patients [facility]* Estrella Plascencia MD LAB - CHEMISTRY OR DERABLES Performing Organization Address [facility] Co de Phone Number [facility] [address] [place] [address] * CULTURE BLOOD (05/17/2010 5:15 PM CDT) Only the most recent of2 resultswithin the time period is included. Result [facility] Comment: Final CULTURE No Growth PERIPHERAL BLOOD / Unknown 05/17/2010 5:15 PM CDT 05/17/2010 5:32 PM CDT Narrative Resulting Agency Comment Performed By [facility];[address] [place] [address];[place] [address] Estrella Plascencia MD LAB - MICROBIOLOGY ORDERABLES Performing Organization Address [facility] de Phone Number [facility] [address] [place] [address] * (ABNORMAL) CBC W AUTO DIFFERENTIAL (05/17/2010 5:15 PM CDT) Only the most recent of3 resultswithin the time period is included. WBC 12.5(H) 4.5 - 11.0 1000/mm3 [facility] RBC 4.86 4.2 - 5.4 10X6 [facility] Hemoglobin 14.0 12.0 - 16.0 gm/dl [facility] Hematocrit 41.1 36.0 - 48.0 % [facility] MCV 84.6 80.0 - 99.0 fl [facility] MCH 28.8 25.0 - 31.0 pg [facility] MCHC 34.1 32.0 - 36.0 gm/dl [facility] RDW 13.4 11.5 - 14.5 % [facility] Platelet Count 227 130.0 - 400.0 1000/mm3 [facility] Granulocytes % 56.3 40.0 - 70.0 % [facility] Lymphocytes % 30.1 22.0 - 40.0 % [facility] Monocytes % 10.6(H) 2.0 - 10.0 % [facility] Eosinophils % 2.5 0.0 - 6.0 % [facility] Basophils % 0.5 0.0 - 3.0 % [facility] Granulocytes Absolute 7.05 1.8 - 7.7 [facility] Lymphocytes Absolute 3.77 1.0 - 5.4 [facility] Monocytes Absolute 1.33(H) 0.1 - 1.1 [facility] Eosinophils Absolute 0.31 0.0 - 0.7 [facility] Basophils Absolute 0.06 0.0 - 0.2 [facility] Comment Manual Diff Not Indicated [facility] BLOOD SPECIMEN / Unknown 05/17/2010 5:15 PM CDT 05/17/2010 5:32 PM CDT Estrella Plascencia MD LAB - HEMATOLOGY O RDERABLES Performing Organization Address [facility] de Phone Number [facility] [id number] [place] [id number] * B-TYPE NATRIURETIC PEPTIDE (05/17/2010 5:15 PM CDT) BNP 17.6 0.0 - 100.0 pg/ml [facility] Interpretation BNP D [facility] Comment: A cutoff of 100 pg/ml has been demonstrated to provide the maximal combination of sensitivity, specificity, and negative predictive value for contributing to the diagnosis of congestive heart failure (CHF) only. A BNP value greater than or equal to 100 pg/ml is consistent with a diagnosis of CHF in the appropriate clinical setting. False positive results are more common in females greater than 75 years of age. Blood concentrations of natriuretic peptides may also be elevated in patients with myocardial infarction and in patients who are candidates for or are undergoing renal dialysis. BLOOD SPECIMEN WITH EDTA / Unknown 05/17/2010 5:15 PM CDT 05/17/2010 5:32 PM CDT Narrative [facility] - 05/17/2010 6:11 PM CDT Perform on all patients [facility]* Estrella Palscencia MD LAB - CHEMISTRY OR DERABLES Performing Organization Address [facility] Co de Phone Number [facility] [address] [place] [address] * (ABNORMAL) COMPREHENSIVE METABOLIC PANEL (05/17/2010 5:15 PM CDT) Only the most recent of3 resultswithin the time period is included. BUN 14 7.0 - 17.0 mg/dl [facility] Sodium 139 137 - 145 mmol/L [facility] Potassium 4.1 3.6 - 5.0 mmol/L [facility] Chloride 108(H) 98.0 - 107.0 mmol/L [facility] Glucose 139(H) 75 - 110 mg/dl [facility] Creatinine 0.8 0.52 - 1.05 mg/dl [facility] AST 16 14.0 - 36.0 U/L [facility] Alkaline Phosphatase 77 38.0 - 126.0 U/L [facility] Calcium 9.0 8.4 - 10.2 mg/dl [facility] Bilirubin Total 0.2 0.2 - 1.3 mg/dl [facility] Albumin 4.1 3.5 - 5.0 gm/dl [facility] Protein Total 6.0(L) 6.3 - 8.2 gm/dl [facility] CO2 22 22.0 - 30.0 mEq/L [facility] ALT 22 9.0 - 52.0 U/L [facility] eGFR by MDRD 76.24 ml/min/1.7 3m2 [facility] BLOOD SPECIMEN / Unknown 05/17/2010 5:15 PM CDT 05/17/2010 5:32 PM CDT Estrella Plascencia MD LAB - CHEMISTRY OR DERABLES [facility] [address] [place] [address]
--- OUTSIDE RECORDS SUMMARY | 2025-01-11 17:33 | XMS_ITS | Encounter Summary ---
Author Organization [facility] Address [facility] [place] [address] Care Team Providers Care Silverware Cleaner Name Role Phone Manuel Okeefe DO Primary Care Provider [phone] Manuel Okeefe DO Primary Care Provider [phone] None, Provider Primary Care Provider Unavaila ble Manuel Okeefe DO Primary Care Provider [phone] Manuel Okeefe DO Unavailable [phone] Manuel Okeefe DO Unavailable [phone] Chichi Engel RN Unavailable [phone] Melanie Navarrete RN Unavailable Filippo Saleem MD Unavailable [phone] Chinedu Felton MD Primary Care Provider [phone] Encounter Details Date Type Department Care Team (Late st Contact Info) Description 02/11/2024 Hospital Orders Only [facility] Family Medicine - [address] [address] Manuel Okeefe DO [address] [place] [id number] Social History Tobacco Use Types Packs/Day Years Used Date Smoking Tobacco: Every Day Cigarettes 0.5 45 Smokeless Tobacco: Never Alcohol Use Standard Drinks/Week Comments Not Currently 0 (1 standard drink = 0.6 oz pur e alcohol) [facility] Utilities Answer Date Recorded In the past 12 months has e [place], gas, oil, or water [employer] threatened to shut off services in your home? No 02/04/2024 Humiliation, Afraid, Rape, and Kick questionnair e Answer Date Recorded Within the last year, have y ou been afraid of your partner or ex-partner? No 02/04/2024 Within the last year, have y ou been humiliated or emotionally abused in other ways by your partner or ex-partner? No Within the last year, have y ou been kicked, hit, slapped, or otherwise physically hurt by your partner or ex-partner? No 02/04/2024 Within the last year, have y ou been raped or forced to have any kind of sexual activity by your partner or ex-partner? No 02/04/2024 Overall Financial Resource Strain (CARDIA) Answe r Date Recorded How hard is it for you to pa y for the very basics like food, housing, medical care, and heating? Not hard at all 02/04/2024 [facility] - Occupational Stress Questionnaire Answer Date Recorded Do you feel stress - tense, restless, nervous, or anxious, or unable to sleep at night because your mind is troubled all the time - these days? Not at all 01/26/2024 Hunger Vital Sign Answer Date Recorded Within the past 12 months, y ou worried that your food would run out before you got the money to buy more. Never true 02/04/20 24 Within the past 12 months, t he food you bought just didn't last and you didn't have money to get more. Never true 02/04/2024 PRAPARE - Transportation Answer Date Re corded In the past 12 months, has l ack of transportation kept you from medical appointments or from getting medications? No 01/25 In the past 12 months, has l ack of transportation kept you from meetings, work, or from getting things needed for daily living? No 02/04/2024 Housing Stability Vital Sign Answer David e Recorded In the last 12 months, was t here a time when you were not able to pay the mortgage or rent on time? No 02/04/2024 In the last 12 months, how many places have you lived? 1 02/04/2024 In the last 12 months, was t here a time when you did not have a steady place to sleep or slept in a correction (including now)? No 02/04/2024 Comments No Sex and Gender Information Value Date Recorded Sex Assigned at Not on file Legal Sex Female 8:17 PM CDT Gender Identity Not on file Sexual Orientation Not on file documented as of this encounter Functional Status * Are you deaf or do you have serious difficulty hearing Answer Date of Assessment Author Status No 02/04/2024 7:11 PM SILVINOT Alma Delia Claros RN Active * Are you blind or do you have serious difficulty seeing, even when wearing glasses? Answer Date of Assessment Author Status No 02/04/2024 7:11 PM SILVINOT Alma Delia Claros RN Active * Do you have serious difficulty walking or climbing stairs? Answer Date of Assessment Author Status Yes 02/04/2024 7:11 PM Alma Delia Watkins RN Active * Do you have difficulty dressing or bathing? Answer Date of Assessment Author Status No 02/04/2024 7:11 PM SILVINOT Alma Delia Claros RN Active * Because of a physical, mental, or emotional condition, do you have difficulty doing errands alone such as visiting a doctor's office or shopping? Answer Date of Assessment Author Status No 02/04/2024 7:11 PM Alma Delia Watkins RN Active documented as of this encounter Mental Status * Because of a physical, mental, or emotional condition, do you have serious difficulty concentrating, remembering, or making decisions? Answer Entry Date Author Status No 02/04/2024 7:11 PM Alma Delia Watkins RN Active documented in this encounter Plan of Treatment Not on file documented as of this encounter Goals Goal Patient Goal Type Associated Problems Recent Progress Patient-Stated? Author Consistently take medications as Prescribed Lifestyle Not on track(2023 10:21 AM CDT) No Chichi Engel RN Establish Regular Follow-Ups with PCP Lifestyle On track(2023 10:21 AM CDT) No Chichi Engel RN Medications - demonstrates understanding of home oxygen therapy and set up Lifestyle On track(2023 2:21 PM CDT) No Chichi Engel, RN Establish Plan for Symptom Monitoring Lifestyle Not on track(2023 10:21 AM CDT) Chichi Krishna, RN Note: Interventions for COPD include: 1) patient will be knowledgeable and notify provider if experiencing following symptoms: worsening SOB, freq cough(nonproductive or productive), wheezing, fatigue, tightness in chest 2) patient will take all medications consistently as prescribed 3) patient will follow up with provider routinely/as scheduled documented as of this encounter Visit Diagnoses Not on filedocumented in this encounter Additional Health Concerns Infection Onset Date Last Indicated Resolved Time COVID-19 Confirmed 02/08/2024 02/18/2024 7:47 AM CDT COVID-19 Rule Out 03/12/2024 03/12/2024 03/12/2024 12:34 PM CDT COVID-19 Rule Out 06/22/2024 06/22/2024 06/22/2024 7:46 AM CDT documented as of this encounter Care Teams Silverware Cleaner Relationship Specialty Start Date End Date Manuel Okeefe DO [address] [place] [address] PCP - General FAMILY PRACTICE 01/15/24 02/13/24 Manuel Okeefe DO [address] [place] [address] PCP - General FAMILY PRACTICE 02/14/24 02/15/24 None, MD Mattie PCP - General UNKNOWN PHYSICIAN SPECIALTY 02/16/24 Manuel Okeefe DO [address] [place] [address] PCP - General FAMILY PRACTICE 02/29/24 08/07/24 Chinedu Felton MD [address] [place] [id number] PCP - General INTERNAL MEDICINE 08/08/24 Manuel Okeefe DO [address] [place] [address] [facility] 02/14/24 02/15/24 Manuel Okeefe DO [address] [place] [address] [facility] 02/16/24 07/18/24 Chichi Engel RN [address] [place], [place] [id number] [facility] (Ambulatory) REGISTERED NURSE 01/29/24 04/02/24 Melanie Navarrete RN [address] [place], [place] [id number] [facility] (Ambulatory) REGISTERED NURSE 05/22/24 08/11/24 Filippo Saleem MD [address] [place] [address] Physician NEUROMUSCULOSKELETAL MEDICINE 07/26/24 documented as of this encounter
--- OUTSIDE RECORDS SUMMARY | 2025-01-11 17:33 | XMS_ITS ---
Author Organization [facility] Address [address] [place] [address] Care Team Providers Care Ip Litigation Paralegal Name Role Phone Chinedu Felton Primary Care Provider Allergies No Known Allergies Reason For Referral Reason MCC PLACEME NT, SEVERE DEPRESSION, DYSFUNCTIONAL FAMILY DYNAMIC, END-STAGE COPD SEVERE SOB Diagnosis 1 Major depressive dis order (F32.9) Referral Organization [facility] Referring Provider First Name Chinedu Referring Provider Last Name Jose Francisco Referring Provider Speciality Internal M edicine Referred Provider Specialty Behavioral H ealt General Notes Bre Ochoa 01/10 11:10:57 AM >Bre Hunt will be starting therapy with [facility]. Referral Priority Urgent REASON FOR VISIT f/u Medications Medication SIG (Take, Route, Frequency, Duration) Notes Start Date End Date Status Budesonide-Formoterol Fumarate 160-4.5 MCG/ACT 2 puffs Inhalation Twice a day 12/29/2022 Active Umeclidinium [place] 62.5 MCG/ACT 1 puff Inhalation Once a day for 30 days 12/25/2024 Active hydrOXYzine HCl 25 MG 1 tablet as needed Orally EVERY 4 HOURS for 7 days Active DULoxetine HCl 20 MG 1 capsule Orally On ce a day for 30 days 01/09/2025 Active rOPINIRole HCl 0.5 MG 1 tablet 1 to 3 ho urs before bedtime Orally Once a day for 30 days 09/05/2024 Active Ventolin HFA 108 (90 Base) MCG/ACT 2 puffs as needed for shortness of breath Inhalation every 4 hrs Active DTx Michelle - Miscellaneous - donut cushion externally daily for 365 days while seated folr aleksandraynia (M53.3) 11/29/2024 Active Ipratropium [place] 0.03 % 2 sprays in each nostril Nasally Twice a day for 30 days As needed drainage 11/29/2024 Active Acetaminophen 500 MG 2 tablets Orally every 6 hours As needed pain, up to 6 tablets per day Active Oxygen - Miscellaneous - 3L/MIN by nasal cannula DAILY 02/11/2021 Active Triamcinolone Acetonide 0.1 % 1 application Externally twice a day As needed to rash on trunk Active Ipratropium-Albuterol 0.5-2.5 (3) MG/3ML 3 mL as needed Inhalation every 6 hrs for 30 days Active Methadone HCl 10 MG 0.5 tablet Orally On ce a day for 14 days 01/09/2025 Active clonazePAM 0.5 MG 1 tablet Orally FOUR TIMES A DAY for 15 days As needed ANXIETY 01/09/2025 Active HYDROmorphone HCl 4 MG 1 tablet as needed Orally EVERY 6 HOURS for 15 days As needed SEVERE PAIN OR SHORTNESS OF BREATH 01/09/2025 Active Social History Tobacco Use: Social History Observation Description Date Details (start date - stop date) Current Smoker NA - NA Sex Assigned At : Social History Observation Description Sex Assigned At Female Tobacco Control (Standard) Question Answer Notes Tobacco use: Current smoker Vital Signs Weight 93.0 lbs 01/09/2025 Height 64 in 01/09/2025 BMI 15.96 kg/m2 01/09/2025 Blood pressure systolic 130 mm Hg 01/09/20 25 Blood pressure diastolic 42 mm Hg 025 Heart Rate 100 /min 01/09/2025 Oximetry 98 % 01/09/2025 Respiratory Rate 16 /min 01/09/2025 Encounters Encounter Location Date Provider Diagnosis [address] [address] 01/09/2025 Chinedu Felton Chronic obstructive pulmonary disease, unspecified COPD type J44.9 ; Chronic pain syndrome G89.4 ; Chronic respiratory failure with hypoxia J96.11 ; Restless leg syndrome G25.81 ; End stage renal disease N18.6 ; Dependence on renal dialysis Z99.2 ; Dyspnea R06.00 ; Major depressive disorder F32.9 and Severe episode of recurrent major depressive disorder, without psychotic features F33.2 Assessments Encounter Date Diagnosis (ICD Code) Assessment Notes Treatment Notes Treatment Clinical Notes Section Notes 01/09/2025 Chronic obstructive pulmonary disease, unspecified COPD type (ICD-10 - J44.9) END-STAGE 01/09/2025 Chronic pain syndrome (ICD-10 - G89.4) 01/09/2025 Chronic respiratory failure with hypoxia (ICD-10 - J96.11) 01/09/2025 Restless leg syndrome (ICD-10 - G25.81) 01/09/2025 End stage renal disease (ICD-10 - N18.6) 01/09/2025 Dependence on renal dialysis (ICD-10 - Z99.2) 01/09/2025 Dyspnea (ICD-10 - R06.00) 01/09/2025 Major depressive disorder (ICD-10 - F32.9) LOW DOSE DULOXETINE DUE TO ESRD ON HD. 01/09/2025 Severe episode of recurrent major depressive disorder, without psychotic features (ICD-10 - F33.2) Plan Of Treatment Medication Medication Name Sig Start Date Stop Date Notes DULoxetine HCl 20 MG 1 capsule Orally On ce a day for 30 days 01/09/2025 Methadone HCl 10 MG 0.5 tablet Orally On ce a day for 14 days 01/09/2025 clonazePAM 0.5 MG 1 tablet Orally FOUR TIMES A DAY for 15 days 01/09/2025 HYDROmorphone HCl 4 MG 1 tablet as neede d Orally EVERY 6 HOURS for 15 days 01/09/2025 Referrals Referral Date Details 01/09/2025 01/09/2025, MCC PLACEMENT, SEVERE DEPRESSION, DYSFUNCTIONAL FAMILY DYNAMIC, END-STAGE COPD SEVERE SOB Next Appt Details Follow Up: 2 Weeks, Reason: Progress Notes * Brian ZALDIVARDOB: 1 (64 yo F)Acc No.[id number]:01/09/2025 Progress Notes Patient: Brian PRICE Provider: Magnus Felton :1960 A ge:64 Y S ex:Female Date:01/09/2025 Address:[address] [place], [place] [id number] Check In:10:03 AM MANAGER LICENSING Subjective: * Chief Complaints: * F /u * HPI: I nterim History: f/u PALLIATIVE CARE FOR END-STAGE COPD. UNABLE TO GO ON HOSPICE PROGRAM DUE TO HD. CALLED HOSPICE [facility] TODAY AND CONFIRMED. OUT OF INHALERS. I CAN'T BREATHE. SEVER PAIN IN ABDOMEN, BACK, NECK, JOINTS. MY DEPRESSION IS SO BAD. I WANT TO . DENIED PLANS TO HURT SELF. I DON'T KNOW HOW I'D DO IT. PROBLEMS WITH MOM. SHE HATES ME. SHE ALWAYS DID. SHE'S SO CONTROLLING. STILL GOING TO DIALYSIS 3 DAYS PER WEEK (TTS) AND MAKING THROUGHT TX. SKIPPED TODAY DUE TO APPT. NOSE IS STUFFY AT NIGHT. SHE DECLINES REFERRAL TO PSYCH. BUT SHE WILL TALK TO RE: NH PLACEMENT. Emergency room visit Y es. Was hospitalized N o. D epression Screening: PHQ-9 L ittle interest or pleasure in doing things?Nearly every day F eeling down, depressed, or hopeless N early every day T rouble falling or staying asleep, or sleeping too much N early every day F eeling tired or having little energy N early every day P oor appetite or overeating N early every day F eeling bad about yourself or that you are a failure, or have let yourself or your family down N early every day T rouble concentrating on things, such as reading the newspaper or watching television N early every day M oving or speaking so slowly that other people could have noticed; or the opposite, being so fidgety or restless that you have been moving around a lot more than usual N early every day T houghts that you would be better off or of hurting yourself in some way N early every day (Consider Suicide Assessment Risk) T otal Score 2 7 I nterpretation S evere Depression Intervention D epression Screening Findings P ositive F ollow-Up for Depression P rescribed psychotropic medications . S creening: [place] Suicide Severity Rating Scale (LF) D o you want to initiate with S creener form 1 . Wish to be : Have you wished you were or wished you could go to sleep and not wake up? N o 2 . Suicidal Thoughts: Have you actually had any thoughts of killing yourself? N o 6 . Suicide Behavior Question: Have you ever done anything,started to do anything, or prepared to end your life? N o I nterpretation: L ow Risk C SSRS Interpretation and Follow Up Plan: CSSRS Interpretation and Follow Up Plan C SSRS Screen documented using SF Y es R isk Disposition from SF L ow - No Follow Up Plan Required F ollow Up Plan N o Follow Up Plan required at this time. * ROS: B asic ROS: Admits D epressed Mood. * Medical History: * Surgical History: a ppendectomy 2016cholecystectomy 2016colon removal 2015 * Hospitalization/Major Diagno stic Procedure: f ell, coma x 3 1/2 weeks 01/09/2016child 12/1979child 11/1981child 09/1983[facility]- Kidney failure, BP drops 2018[facility]- low levels 2018L[facility] 12/2022heart attack and fell 06/2024 * Family History: F ather: , cancer, asbestos exposure, asthma, COPD. S on(s): alive, cancer. M other: alive, quadruple bypass. S iblings: brother- asthmasister- asthma, COPD. 1 brother(s) , 2 sister(s) - healthy. 3 son(s) - healthy. . family history of anxiety. * Social History: P rimary Social History: L iving Arrangement L iving Arrangement: D ependent Living L iving with: P arent(s) I s this a supportive environment? Y es Alcohol Use A lcohol Use Frequency: N ever Illicit Substance Usage I llicit Substance Usage: N o Employment Status E mployment Status: O n Disability T obacco Use: T obacco Control (Standard) T obacco use: C urrent smoker M iscellaneous: M ethod of learning P referred method of learning: D emonstration * Medications: T akingIpratropium-Albuterol 0.5-2.5 (3) MG/3ML Solution 3 mL as needed Inhalation every 6 hrs Triamcinolone Acetonide 0.1 % Cream 1 application Externally twice a day As needed to rash on trunkAcetaminophen 500 MG Tablet 2 tablets Orally every 6 hours As needed pain, up to 6 tablets per dayOxygen - Miscellaneous - Solution 3L/MIN by nasal cannula DAILY Ventolin HFA 108 (90 Base) MCG/ACT Aerosol Solution 2 puffs as needed for shortness of breath Inhalation every 4 hrs DTx Michelle - Miscellaneous - Miscellaneous donut cushion externally daily while seated folr coccydynia (M53.3)Ipratropium [place] 0.03 % Solution 2 sprays in each nostril Nasally Twice a day As needed drainageclonazePAM 0.5 MG Tablet 1 tablet Orally FOUR TIMES A DAY As needed ANXIETYBudesonide-Formoterol Fumarate 160-4.5 MCG/ACT Aerosol 2 puffs Inhalation Twice a day Umeclidinium [place] 62.5 MCG/ACT Aerosol Powder Breath Activated 1 puff Inhalation Once a day HYDROmorphone HCl 4 MG Tablet 1 tablet as needed Orally EVERY 4 HOURS As needed SEVERE PAIN OR SHORTNESS OF BREATHrOPINIRole HCl 0.5 MG Tablet 1 tablet 1 to 3 hours before bedtime Orally Once a day hydrOXYzine HCl 25 MG Tablet 1 tablet as needed Orally EVERY 4 HOURS Taking Ipratropium- Albuterol 0.5-2.5 (3) MG/3ML Solution 3 mL as needed Inhalation every 6 hrs Taking Triamcinolone Acetonide 0.1 % Cream 1 application Externally twice a day As needed to rash on trunkTaking Acetaminophen 500 MG Tablet 2 tablets Orally every 6 hours As needed pain, up to 6 tablets per dayTaking Oxygen - Miscellaneous - Solution 3L/MIN by nasal cannula DAILY Taking Ventolin HFA 108 (90 Base) MCG/ACT Aerosol Solution 2 puffs as needed for shortness of breath Inhalation every 4 hrs Taking DTx Michelle - Miscellaneous - Miscellaneous donut cushion externally daily while seated folr coccydynia (M53.3)Taking Ipratropium [place] 0.03 % Solution 2 sprays in each nostril Nasally Twice a day As needed drainageTaking clonazePAM 0.5 MG Tablet 1 tablet Orally FOUR TIMES A DAY As needed ANXIETYTaking Budesonide-Formoterol Fumarate 160-4.5 MCG/ACT Aerosol 2 puffs Inhalation Twice a day Taking Umeclidinium [place] 62.5 MCG/ACT Aerosol Powder Breath Activated 1 puff Inhalation Once a day Taking HYDROmorphone HCl 4 MG Tablet 1 tablet as needed Orally EVERY 4 HOURS As needed SEVERE PAIN OR SHORTNESS OF BREATHTaking rOPINIRole HCl 0.5 MG Tablet 1 tablet 1 to 3 hours before bedtime Orally Once a day Taking hydrOXYzine HCl 25 MG Tablet 1 tablet as needed Orally EVERY 4 HOURS * Allergies: N .K.D.A.no[Allergies Verified] Objective: * Vitals: I nitials: dt, Wt:93.0, Ht: 64, BMI:15.96, BP:130/42, HR:100, Oxygen sat %:98, RR:16, LMP: n/a, Pain scale:10. Assessment: * Assessment: 1. C hronic obstructive pulmonary disease, unspecified COPD type - J44.9 (Primary) ?2. C hronic pain syndrome - G89.4 3 . C hronic respiratory failure with hypoxia - J96.11 4 . R estless leg syndrome - G25.81 5 . E nd stage renal disease - N18.6 6 . D ependence on renal dialysis - Z99.2 ? 7 . D yspnea - R06.00 8 . M ajor depressive disorder - F32.9 ? 9 . S evere episode of recurrent major depressive disorder, without psychotic features - F33.2 Plan: * Treatment: 2. C hronic pain syndrome Refill HYDROmorphone HCl Tablet, 4 MG, 1 tablet as needed, Orally, EVERY 6 HOURS As needed SEVERE PAIN OR SHORTNESS OF BREATH, 15 days, 60 Tablet, Refills 0. 3. D yspnea Start Methadone HCl Tablet, 10 MG, 0.5 tablet, Orally, Once a day, 14 days, 7 Tablet, Refills 0.? 4. M ajor depressive disorder Start DULoxetine HCl Capsule Delayed Release Particles, 20 MG, 1 capsule, Orally, Once a day, 30 days, 30. Clinical Notes: LOW DOSE DULOXETINE DUE TO ESRD ON HD. ? Referral To:Behavioral Health Reason:MCC PLACEMENT, SEVERE DEPRESSION, DYSFUNCTIONAL FAMILY DYNAMIC, END-STAGE COPD SEVERE SOB 5. S evere episode of recurrent major depressive disorder, without psychotic features Refill clonazePAM Tablet, 0.5 MG, 1 tablet, Orally, FOUR TIMES A DAY As needed ANXIETY, 15 days, 60 Tablet, Refills 0. * Recommended Wellness and Pre vention Guidelines: * S tatus A lert L ast Done N ext Due A ction Taken N ONCOMPLIANT B reast cancer screening - 0 01/09/2025 - N ONCOMPLIANT C holesterol screen (genl pop) 0 03/11/2019 0 01/09/2025 - N ONCOMPLIANT C olorectal cancer screening - 0 01/09/2025 - N ONCOMPLIANT D epression followup 0 12/25/2024 0 01/09/2025 - N ONCOMPLIANT H IV screening - 0 01/09/2025 - * Procedure Codes: 3 008F BODY MASS INDEX [id number] MEDICAL NUTRITION, INDIV, [id number] BEHAV CHNG SMOKING 3-10 [id number] [facility] VISIT ESTABLISHED PATIENT * Preventive Medicine: Counseling: C are goal follow-up plan: BMI management provided Y es Below Normal BMI Follow-up L ifestyle education regarding diet S MOKING: Patient counselled on the dangers of tobacco use and urged to quit. . * Follow Up: 2 Weeks * * GER LICENSING Sign off status: Completed true * Provider: Magnus Felton Date: 0 01/09/2025 Generated for Gris leung/Bridget/eTransmrainer on: 0 01/11/2025 05:33 PM MANAGER LICENSING History and Physical Notes * HPI (History of Present Illness) Category Sub-Category Detail Notes Category Not es Interim History Was hospitalized No Emergency room visit Yes Depression Screening PHQ-9 Little inte rest or pleasure in doing things: Nearly every day Feeling down, depressed, or hopeless: Ne [place] every day Trouble falling or staying asleep, or sl eeping too much: Nearly every day Feeling tired or having little energy: N early every day Poor appetite or overeating: Nearly ever y day Feeling bad about yourself o r that you are a failure, or have let yourself or your family down: Nearly every day Trouble concentrating on thi ngs, such as reading the newspaper or watching television: Nearly every day Moving or speaking so slowly that other people could have noticed; or the opposite, being so fidgety or restless that you have been moving around a lot more than usual: Nearly every day Thoughts that you would be b olga off or of hurting yourself in some way: Nearly every day (Consider Suicide Assessment Risk) Total Score: 27 Interpretation: Severe Depression Intervention Depression Screening Findings: P ositive Follow-Up for Depression: Prescribed psy chotropic medications . Screening [place] Suicide Sev erity Rating Scale (LF) Do you want to initiate with: Screener form 1. Wish to be : Have you wished you were or wished you could go to sleep and not wake up?: No 2. Suicidal Thoughts: Have you actually had any thoughts of killing yourself?: No 6. Suicide Behavior Question: Have you ever done anything,started to do anything, or prepared to end your life?: No Interpretation:: Low Risk CSSRS Interpretation and Follow Up Plan CSSRS Interpretation and Follow Up Plan CSSRS Screen documented using SF: Yes Risk Disposition from SF: Low - No Follo w Up Plan Required Follow Up Plan: No Follow Up Plan requir ed at this time. Consultation Request Notes Referral Date Referring Provider Referred Provider Not es 01/09/2025 Chinedu Felton , MCC P LACEMENT, SEVERE DEPRESSION, DYSFUNCTIONAL FAMILY DYNAMIC, END-STAGE COPD SEVERE SOB
--- OUTSIDE RECORDS SUMMARY | 2025-01-11 17:33 | XMS_ITS ---
Author Organization [facility] As [employer] [facility] Address [facility] [address] [facility] [address] [place] [address] Care Team Providers Care Transmission Assembler Name Role Phone Gonzales, Waylon Unavailable [phone] Social History Sex Assigned At : Social History Observation Description Sex Assigned At Female Encounters Encounter Location Date Provider Diagnosis [place] [address] [facility] [address] [place] [address] 07/16/2024 Waylon Gonzales Plan Of Treatment No Information Progress Notes * JESUS ZALDIVAR RDOB: [birth year] (64 yo F)Acc No.[id number]:07/16/2024 Patient: JESUS PRICE Provider: JOHN ARAYA :1960 A ge:64 Y S ex:Female Date:07/16/2024 Address:[address] [place] [address] [address] [id number] Subjective: * Chief Complaints: * * Medical History: * Surgical History: * Hospitalization/Major Diagno stic Procedure: * Medications: Objective: * Vitals: Assessment: Plan: * Treatment: * Procedure Codes: * Billing Information: * Visit Code: * Procedure Codes: * TRONIC REPAIR TROUBLESHOOTER Sign off status: Completed true * Provider: JOHN ARAYA Date: 0 07/16/2024 Generated for Gris leung/Bridget/Anusha on: 0 01/11/2025 05:33 PM ELECTRONIC REPAIR TROUBLESHOOTER
--- OUTSIDE RECORDS SUMMARY | 2025-01-11 17:33 | XMS_ITS ---
Author Organization [facility] As [employer] Address [address] [place] [address] Care Team Providers Care Stone Cleaner Name Role Phone Waylon Gonzales Unavailable [phone] Migration, Provider Unavailable Unavailable REASON FOR VISIT EMR-Scott Medications Medication SIG (Take, Route, Frequency, Duration) Notes Start Date End Date Status traZODone HCl 150 MG Oral Active BUDESONIDE-FORMOTEROL HFA 160 MCG-4.5 MCG/ACTUATION AEROSOL INHALER *Reorder from [employer] for eRx and Interaction Alerts* Active Sevelamer Carbonate 800 MG Oral Active Ondansetron HCl 4 MG Oral Active predniSONE 10 MG Oral Act gabe dexAMETHasone 6 MG Oral A ctive diazePAM 5 MG Oral Active Nyamyc 630148 UNIT/GM External Active Ondansetron 4 MG Oral Act gabe MUCUS ER 600 mg Oral *Reorder from [employer] for eRx and Interaction Alerts* Active ProAir HFA 108 (90 Base) MCG/ACT Inhalation Active PARoxetine HCl 10 MG Oral Active Azithromycin 500 MG Oral Active Gabapentin 300 MG Oral Ac tive Carbidopa-Levodopa 25-100 MG Oral Active oxyCODONE HCl 5 MG Oral A ctive hydrOXYzine HCl 25 MG Oral Active Doxycycline Hyclate 100 MG Oral Active Rexulti 2 mg Oral Active PARoxetine HCl 20 MG Oral Active traZODone HCl 100 MG Oral Active Rexulti 3 mg Oral Active clonazePAM 0.5 MG Oral Ac tive predniSONE 20 MG Oral Act gabe predniSONE 5 MG Oral Acti ve Amoxicillin-Pot Clavulanate 500-125 MG Oral Activ e Metoprolol Succinate ER 25 MG Oral Active rOPINIRole HCl 2 MG Oral Active Sertraline HCl 25 MG Oral Active Amoxicillin-Pot Clavulanate 875-125 MG Oral Activ e methylPREDNISolone 4 MG Oral Active Nystatin 104005 UNIT/GM External Active Eliquis 2.5 MG Oral Activ e QUEtiapine Fumarate 25 MG Oral Active Mirtazapine 30 mg Oral Ac tive lamoTRIgine 100 MG Oral A ctive Azithromycin 250 MG Oral Active Social History Sex Assigned At : Social History Observation Description Sex Assigned At Female Encounters Encounter Location Date Provider Diagnosis [facility] [address] [facility] [address] [place] [address] 04/14/2024 Provider Migration Plan Of Treatment No Information Progress Notes * JESUS ZALDIVAR RDOB: [birth year] (64 yo F)Acc No.[id number]:04/14/2024 Patient: JESUS PRICE :1960 A ge:64 Y S ex:Female Address:[address] [place] [address] [place], [place], [place] [address] Subjective: * Chief Complaints: * E MR-Scott * Medical History: * Surgical History: * Hospitalization/Major Diagno stic Procedure: * Social History: M igrated Social History: M igrated Social History: Tobacco Years: Current every day smoker 03/07/2024. * Medications: T akinghydrOXYzine HCl 25 MG Tablet Oral oxyCODONE HCl 5 MG Tablet Oral Amoxicillin-Pot Clavulanate 500-125 MG Tablet Oral Rexulti 3 mg Tablet Oral Ondansetron HCl 4 MG Tablet Oral predniSONE 10 MG Tablet Oral traZODone HCl 150 MG Tablet Oral BUDESONIDE-FORMOTEROL HFA 160 MCG-4.5 MCG/ACTUATION AEROSOL INHALER , Notes to Pharmacist: *Reorder from [employer] for eRx and Interaction Alerts*Sevelamer Carbonate 800 MG Tablet Oral clonazePAM 0.5 MG Tablet Oral dexAMETHasone 6 MG Tablet Oral Ondansetron 4 MG Tablet Disintegrating Oral MUCUS ER 600 mg Tablet Extended Release 12 Hour Oral , Notes to Pharmacist: *Reorder from [employer] for eRx and Interaction Alerts*methylPREDNISolone 4 MG Tablet Therapy Pack Oral Metoprolol Succinate ER 25 MG Tablet Extended Release 24 Hour Oral QUEtiapine Fumarate 25 MG Tablet Oral rOPINIRole HCl 2 MG Tablet Oral Doxycycline Hyclate 100 MG Capsule Oral PARoxetine HCl 20 MG Tablet Oral Rexulti 2 mg Tablet Oral Sertraline HCl 25 MG Tablet Oral Amoxicillin-Pot Clavulanate 875-125 MG Tablet Oral predniSONE 20 MG Tablet Oral predniSONE 5 MG Tablet Oral traZODone HCl 100 MG Tablet Oral Azithromycin 250 MG Tablet Oral lamoTRIgine 100 MG Tablet Oral Mirtazapine 30 mg Tablet Disintegrating Oral Nystatin 849245 UNIT/GM Powder External Eliquis 2.5 MG Tablet Oral Carbidopa-Levodopa 25- 100 MG Tablet Oral Gabapentin 300 MG Capsule Oral PARoxetine HCl 10 MG Tablet Oral ProAir HFA 108 (90 Base) MCG/ACT Aerosol Solution Inhalation Nyamyc 142244 UNIT/GM Powder External Azithromycin 500 MG Tablet Oral diazePAM 5 MG Tablet Oral Taking hydrOXYzine HCl 25 MG Tablet Oral Taking oxyCODONE HCl 5 MG Tablet Oral Taking Amoxicillin- Pot Clavulanate 500-125 MG Tablet Oral Taking Rexulti 3 mg Tablet Oral Taking Ondansetron HCl 4 MG Tablet Oral Taking predniSONE 10 MG Tablet Oral Taking traZODone HCl 150 MG Tablet Oral Taking BUDESONIDE-FORMOTEROL HFA 160 MCG-4.5 MCG/ACTUATION AEROSOL INHALER , Notes to Pharmacist: *Reorder from [facility] for eRx and Interaction Alerts*Taking Sevelamer Carbonate 800 MG Tablet Oral Taking clonazePAM 0.5 MG Tablet Oral Taking dexAMETHasone 6 MG Tablet Oral Taking Ondansetron 4 MG Tablet Disintegrating Oral Taking MUCUS ER 600 mg Tablet Extended Release 12 Hour Oral , Notes to Pharmacist: *Reorder from [facility] for eRx and Interaction Alerts*Taking methylPREDNISolone 4 MG Tablet Therapy Pack Oral Taking Metoprolol Succinate ER 25 MG Tablet Extended Release 24 Hour Oral Taking QUEtiapine Fumarate 25 MG Tablet Oral Taking rOPINIRole HCl 2 MG Tablet Oral Taking Doxycycline Hyclate 100 MG Capsule Oral Taking PARoxetine HCl 20 MG Tablet Oral Taking Rexulti 2 mg Tablet Oral Taking Sertraline HCl 25 MG Tablet Oral Taking Amoxicillin-Pot Clavulanate 875-125 MG Tablet Oral Taking predniSONE 20 MG Tablet Oral Taking predniSONE 5 MG Tablet Oral Taking traZODone HCl 100 MG Tablet Oral Taking Azithromycin 250 MG Tablet Oral Taking lamoTRIgine 100 MG Tablet Oral Taking Mirtazapine 30 mg Tablet Disintegrating Oral Taking Nystatin 837229 UNIT/GM Powder External Taking Eliquis 2.5 MG Tablet Oral Taking Carbidopa-Levodopa 25-100 MG Tablet Oral Taking Gabapentin 300 MG Capsule Oral Taking PARoxetine HCl 10 MG Tablet Oral Taking ProAir HFA 108 (90 Base) MCG/ACT Aerosol Solution Inhalation Taking Nyamyc 831499 UNIT/GM Powder External Taking Azithromycin 500 MG Tablet Oral Taking diazePAM 5 MG Tablet Oral Objective: * Vitals: * Physical Examination: Assessment: Plan: * Treatment: * Procedure Codes: * true * Date: Generated for Gris leung/Bridget/Anusha on: 0 01/11/2025 05:32 PM FREIGHT CAR REPAIRER
--- OUTSIDE RECORDS SUMMARY | 2025-01-11 17:33 | XMS_ITS | Patient Health Record ---
Author Organization [facility] As [employer] Address [address] [place] [address] Care Team Providers Care Rescue Worker Name Role Phone Waylon Gonzales Unavailable [phone] Migration, Provider Unavailable Unavailable Reason For Referral No Information Medications Medication SIG (Take, Route, Frequency, Duration) Notes Start Date End Date Status oxyCODONE HCl 5 MG Oral A ctive Amoxicillin-Pot Clavulanate 500-125 MG Oral Activ e dexAMETHasone 6 MG Oral A ctive hydrOXYzine HCl 25 MG Oral Active Doxycycline Hyclate 100 MG Oral Active Rexulti 3 mg Oral Active Sevelamer Carbonate 800 MG Oral Active Amoxicillin-Pot Clavulanate 875-125 MG Oral Activ e predniSONE 20 MG Oral Act gabe Ondansetron HCl 4 MG Oral Active predniSONE 10 MG Oral Act gabe BUDESONIDE-FORMOTEROL HFA 160 MCG-4.5 MCG/ACTUATION AEROSOL INHALER *Reorder from [employer] for eRx and Interaction Alerts* Active traZODone HCl 100 MG Oral Active predniSONE 5 MG Oral Acti ve Metoprolol Succinate ER 25 MG Oral Active methylPREDNISolone 4 MG Oral Active Nystatin 955468 UNIT/GM External Active Eliquis 2.5 MG Oral Activ e clonazePAM 0.5 MG Oral Ac tive Rexulti 2 mg Oral Active Sertraline HCl 25 MG Oral Active PARoxetine HCl 20 MG Oral Active lamoTRIgine 100 MG Oral A ctive Mirtazapine 30 mg Oral Ac tive Azithromycin 250 MG Oral Active traZODone HCl 150 MG Oral Active ProAir HFA 108 (90 Base) MCG/ACT Inhalation Active diazePAM 5 MG Oral Active PARoxetine HCl 10 MG Oral Active Azithromycin 500 MG Oral Active rOPINIRole HCl 2 MG Oral Active Gabapentin 300 MG Oral Ac tive Nyamyc 918860 UNIT/GM External Active QUEtiapine Fumarate 25 MG Oral Active Carbidopa-Levodopa 25-100 MG Oral Active Ondansetron 4 MG Oral Act gabe MUCUS ER 600 mg Oral *Reorder from [employer] for eRx and Interaction Alerts* Active Social History Sex Assigned At : Social History Observation Description Sex Assigned At Female Encounters Encounter Location Date Provider Diagnosis [facility] [employer] [place] [address] [facility] [address] [facility] [address] [place] [address] [facility]/16[facility]2024 [facility] [address] [place] [address] [address] [facility] [address] [place] [address] [facility] [place] [address] [facility] [address] [address] 04/13/2024 [facility] [place] [address] [address] [facility] [address] [facility] [address] [place] [address] 04/14/2024 Provider Migration Plan Of Treatment No Information Insurance Providers Payer Name Payer Address Payer Phone Subscriber Number Group Number Insured Name Patient Relationship to Insured Coverage Start Date Coverage End Date [facility] Medicare Replacement/ [employer] - [employer] [address] [place] [phone] [id number] JESUS ZALDIVAR Self - patient is the insured [place] Medicaid [address] [address] [place] [address] [id number] JESUS ZALDIVAR Self - patient is the insured
--- OUTSIDE RECORDS SUMMARY | 2025-01-11 17:33 | XMS_ITS | Clinical Summary ---
Author Organization [facility] Address [facility] [place] [address] Care Team Providers Care Pneumatic Hoist Operator Name Role Phone Filippo Saleem MD Unavailable [phone] Chinedu Felton MD Primary Care Provider [phone] Allergies No known active allergies Medications sevelamer carbonate (RENVELA) 800 MG tablet Take 1 tablet (800 mg total) by mouth 3 (three) times daily with meals. 90 tablet 02/23/20 24 Active Additional Information Patient not taking.Reported on 06/04/2024 ipratropium-albute rol (DUONEB) 0.5-2.5 (3) MG/3ML SolutionIndication s:Chronic obstructive pulmonary disease with acute exacerbation ([facility] HHS/HCC) Take 3 mLs by nebulization every 6 (six) hours as needed. 360 mL 2 03/26/20 24 Active vitamin D2, ergocalciferol, (DRISDOL) 1.25 mg capsuleIndications :Vitamin D deficiency Take 1 capsule (1.25 mg total) by mouth every 30 (thirty) days. 3 capsule 3 06/04/20 24 025 Active ondansetron (ZOFRAN-ODT) 4 MG disintegrating tabletIndications: Nausea Take 1 tablet (4 mg total) by mouth every 6 (six) hours as needed. 30 tablet 06/04/20 24 Active EPINEPHrine (PRIMATENE MIST) 0.125 MG/ACT Aerosol Active HYDROcodone-acetam inophen (NORCO) 5-325 MG tabletIndications: Acute Pain < 3 Day Supply Take 1 tablet by mouth every 6 (six) hours as needed for Pain. Indications: Acute Pain < 3 Day Supply 8 tablet 07/07/20 24 Active naloxone (NARCAN) 4 MG/0.1ML nasal spray 1 spray by Nasal route as needed for Opioid reversal. may repeat every 2 to 3 minutes in alternating nostrils until medical assistance becomes available 1 each 07/07/20 24 025 Active mirtazapine (REMERON ESTHELA-TAB) 30 MG disintegrating tabletIndications: Severe recurrent major depression without psychotic features ([facility] HHS/HCC) Take 1 tablet (30 mg total) by mouth nightly at bedtime. 90 tablet 1 07/17/20 24 Active clonazePAM (KLONOPIN) 0.5 MG tabletIndications: Other specified anxiety disorders Take 1 tablet (0.5 mg total) by mouth 2 (two) times daily as needed for Anxiety. 60 tablet 07/17/20 24 Active albuterol sulfate HFA (PROAIR HFA) 108 (90 Base) MCG/ACT inhalerIndications :Chronic bronchitis, unspecified chronic bronchitis type ([facility] HHS/HCC) Inhale 2 puffs into the lungs every 6 (six) hours as needed for Wheezing or Shortness of breath. 18 g 2 07/17/20 24 Active carbidopa-levodopa (SINEMET) 10-100 MG tabletIndications: RLS (restless legs syndrome) Take 2 tablets by mouth nightly at bedtime. 90 tablet 07/17/20 24 Active brexpiprazole (REXULTI) 0.5 MG tabletIndications: Severe recurrent major depression without psychotic features ([facility] HHS/HCC) Take 1 tablet (0.5 mg total) by mouth daily. 90 tablet 07/17/20 24 Active budesonide-glycopy rrolate-formoterol (BREZTRI AEROSPHERE) 160-9-4.8 MCG/ACT inhalerIndications :Chronic bronchitis, unspecified chronic bronchitis type ([facility] HHS/HCC) Inhale 2 puffs into the lungs 2 (two) times a day. 10.7 g 2 07/19/20 24 Active Active Problems Problem Noted Date Diagnosed Date Acute hypoxic respiratory failure ([facility] HHS/H CC) 06/22/2024 Acute respiratory distress 06/22/2024 Hyperkalemia 03/11/2024 Thoracic aorta atherosclerosis 02/29/2024 Assessment & Plan (02/29/2024 8:55 AM CDT): Nonaneurysmal thoracic aorta exhibits atherosclerosis noted on CTA 07/13/23 Paroxysmal atrial fibrillation ([facility]) 02/16/2024 SVT (supraventricular tachycardia) ([facility]) 02/04/2024 ESRD (end stage renal disease) ([facility]) 05/17/2022 Overview (02/29/2024): Last Assessment & Plan: Cellulitis to the left lower extremity has resolved. No signs of acute infection to either lower extremity. Plan: Can continue to follow-up in 2 days for surgery for a graft creation. Last Assessment & Plan: Maturing right arm AV fistula. May start utilizing right arm AV fistula for dialysis. Follow-up in 1 month for re-evaluation, possible Perma catheter removal Age related osteoporosis 03/12/2022 Chronic pain syndrome 03/12/2022 Chronic respiratory failure ([facility]) Other specified anxiety disorders 03/12/2022 Hyperparathyroidism due to r enal insufficiency ([facility]) 03/12/2022 Lumbar radiculopathy 03/12/2022 Cigarette nicotine dependence without complicati on 03/12/2022 Primary insomnia 03/12/2022 Restless legs syndrome 03/12/2022 Vitamin D deficiency 03/12/2022 Severe recurrent major depre ssion without psychotic features ([facility]) 06/10/2019 Asthma ([facility]) 04/14/2010 Chronic obstructive pulmonary disease ([facility]) 02/16/2010 Resolved Problems Problem Noted Date Diagnosed Date Resolved Date Care Management 05/22/2024 08/12/2024 COVID-19 01/26/2024 02/29/2024 Cataract 03/12/2022 02/29/2024 Essential hypertension 03/12/202202/28 Overview (02/29/2024): Last Assessment & Plan: Continue current medical management. Obesity 03/12/2022 02/29/2024 Immunizations Name Administration Dates Next Due Fluzone 6 Months+ Quad (0.5 mL Prefilled Syringe) 02/08/2024,01/27/2024(Deferred: Patient/family declined) Hepatitis B Vac Recomb Adj 2 0 Mcg/0.5ml Im Sosy 10/15/2023,07/20/2022,05/25/2022,2021,03/23/2022 Influenza (Generic) 09/08/2023,10/10/2017 Influenza Adult (Generic) 08/25/2021,09/19/2014 PFIZER COVID-19 ([facility]), MRNA, LNP-S, PF, 30 MCG/0.3 ML KHANG-SUCROSE, IM 02/25/2022 Pneumococcal (Pneumovax 23) 07/15/2022, Pneumococcal (Prevnar 13) 05/20/2022 Shingrix 10/04/2021 Family History Medical History Relation Comments Heart Brother Cancer Father Heart Mother COPD Sister 1 Relation Status Comments Brother Alive Father Mother Alive Sister 1 Alive Sister 2 Alive Social History Tobacco Use Types Packs/Day Years Used Date Smoking Tobacco: Former Cigarettes 0.5 45 Passive Smoke Exposure: Past Smokeless Tobacco: Never Tobacco Cessation:Counseling Given: Not Answered Alcohol Use Standard Drinks/Week Comments Not Currently 0 (1 standard drink = 0.6 oz pur e alcohol) [facility] Utilities Answer Date Recorded In the past 12 months has e [employer], oil, or water [employer] threatened to shut off services in your home? Patient unable to answer 06/22/2024 Humiliation, Afraid, Rape, a nd Kick questionnaire Answer Date Recorded Within the last year, have y ou been afraid of your partner or ex-partner? Patient unable to answer 06/22/2024 Within the last year, have y ou been humiliated or emotionally abused in other ways by your partner or ex-partner? Patient unable to answer 06/22/2024 Within the last year, have y ou been kicked, hit, slapped, or otherwise physically hurt by your partner or ex-partner? Patient unable to answer 06/22/2024 Within the last year, have y ou been raped or forced to have any kind of sexual activity by your partner or ex-partner? Patient unable to answer 06/22/2024 Social Connection and Isolat ion Panel [NHANES] Answer Date Recorded In a typical week, how many times do you talk on the phone with family, friends, or neighbors? More than three times a week 02/16/2024 How often do you get togethe r with friends or relatives? More than three times a week 02/16/2024 How often do you attend chur ch or yarsani services? More than 4 times per year 02/16/2024 Do you belong to any clubs o r organizations such as mandaeism groups, unions, fraternal or athletic groups, or school groups? Yes 02/16/2024 How often do you attend meet ings of the clubs or organizations you belong to? 1 to 4 times per year 02/16/2024 Are you , , di vorced, , never , or living with a partner? 02/16/2024 Overall Financial Resource Strain (CARDIA) Answe r Date Recorded How hard is it for you to pa y for the very basics like food, housing, medical care, and heating? Patient unable to answer 06/22/2024 PHQ-2 Answer Date Recorded Patient Health Questionnaire-2 Score 5 02/29/2024 [employer] [facility] - Occupational Stress Questionnaire Answer Date Recorded Do you feel stress - tense, restless, nervous, or anxious, or unable to sleep at night because your mind is troubled all the time - these days? Only a little 03/11/2024 Exercise Vital Sign Answer Date Recorde d Days of Exercise per Week Not on file 2023 On average, how many minutes do you engage in exercise at this level? 0 min 02/16/2024 Hunger Vital Sign Answer Date Recorded Within the past 12 months, y ou worried that your food would run out before you got the money to buy more. Patient unable to answer 06/22/2024 Within the past 12 months, t he food you bought just didn't last and you didn't have money to get more. Patient unable to answer 06/22/2024 PRAPARE - Transportation Answer Date Re corded In the past 12 months, has l ack of transportation kept you from medical appointments or from getting medications? Patient unable to answer 06/22/2024 In the past 12 months, has l ack of transportation kept you from meetings, work, or from getting things needed for daily living? Patient unable to answer 06/22/2024 Housing Stability Vital Sign Answer David e Recorded In the last 12 months, was t here a time when you were not able to pay the mortgage or rent on time? No 02/16/2024 In the last 12 months, how many places have you lived? 1 02/16/2024 In the last 12 months, was t here a time when you did not have a steady place to sleep or slept in a [place] (including now)? No 02/16/2024 Housing Stability Vital Sign Answer David e Recorded In the last 12 months, was t here a time when you were not able to pay the mortgage or rent on time? Patient unable to answer 06/22/2024 In the past 12 months, how m any times have you moved where you were living? 2 06/22/2024 At any time in the past 12 m [facility], were you homeless or living in a [place] (including now)? Patient unable to answer 06/22/2024 Comments No Sex and Gender Information Value Date Recorded Sex Assigned at Not on file Legal Sex Female 8:17 PM CDT Gender Identity Not on file Sexual Orientation Not on file Last Filed Vital Signs Vital Sign Reading Time Taken Comments Blood Pressure 100/64 07/17/2024 3:39 PM CDT Pulse 103 07/17/2024 3:39 PM CDT Temperature 36.4 C (97.6 F) 07/17/2024 3:39 PM CDT Respiratory Rate 20 07/16/2024 11:17 PM CDT Oxygen Saturation 98% 07/17/2024 3:39 PM CDT Inhaled Oxygen Concentration - - Weight 51.8 kg (114 lb 3.2 oz) 07/17/2024 3:39 P M CDT Height 162.6 cm (5' 4 ) 07/17/2024 3:39 PM CDT Body Mass Index 19.6 07/17/2024 3:39 PM CDT Plan of Treatment Health Maintenance Due Date Last Done Comments Cervical Cancer Screening Pap Smear (Age 30 to 64) Every 3 Years 1961 Colorectal Cancer Screening Colonoscopy (10 Years) 1961 Annual Physical 1964 Hepatitis C 1979 DTaP, Tdap and Td Vaccines (1 - Tdap) 1980 Cervical Cancer Screening Pap with HPV Testing (Age 30 to 64) Every 5 Years 1991 Cervical Cancer Screening with HPV 1991 Mammogram Screening 2001 RSV Immunization or 60+ Years (1 - Risk 60-74 years 1-dose series) 2021 Zoster Vaccines (2 of 2) 11/29/2021 10/04/2021 Lung Cancer Screening 02/16/2024 02/15/2023 COVID-19 Vaccine ( season) 2024 02/25/2022, 02/25/2022, 04/08/2021, Additional history exists PHQ-2 ([facility] [place]) 11/27/2024 02/29/2024 PHQ-2 ([facility] [place]) 02/28/2025 02/29/2024 Pneumococcal Vaccine: Pediatrics (0 to 5 Years) and At-Risk Patients (6 to 64 Years) (3 of 3 - PPSV23 or PCV20) 07/15/2027 07/15/2022, 05/20/2022, 10/04/2021 Influenza Adult Completed 09/05/2024, 01/25, 09/08/2023, Additional history exists Meningococcal B Vaccine Aged Out No l onger eligible based on patient's age to complete this topic Meningococcal Vaccine Aged Out No alex todd eligible based on patient's age to complete this topic RSV Immunizations Under 20 Months Aged Out No longer eligible based on patient's age to complete this topic Goals Goal Patient Goal Type Associated Problems Recent Progress Patient-Stated? Author Consistently take medications as Prescribed Lifestyle Not on track(2023 10:21 AM CDT) Chichi Krishna, RN Establish Regular Follow-Ups with PCP Lifestyle On track(2023 10:21 AM CDT) Chichi Krishna, RN Medications - demonstrates understanding of home oxygen therapy and set up Lifestyle On track(2023 2:21 PM CDT) Chichi Krishna, RN Establish Plan for Symptom Monitoring Lifestyle Not on track(2023 10:21 AM CDT) No Chichi Engel, RN Note: Interventions for COPD include: 1) patient will be knowledgeable and notify provider if experiencing following symptoms: worsening SOB, freq cough(nonproductive or productive), wheezing, fatigue, tightness in chest 2) patient will take all medications consistently as prescribed 3) patient will follow up with provider routinely/as scheduled Medications - demonstrates understanding of how and when to take anticoagulants, dietary restrictions, and signs and symptoms to report to PCP Lifestyle On track(2023 2:21 PM CDT) No Chichi Engel RN Establish Plan for Symptom Monitoring CKD Lifestyle On track(2023 10:21 AM CDT) No Melanie Navarrete RN Note: CKD Interventions for CKD: 1) Patient will be knowledgeable in symptoms of CKD to report including: nausea, vomiting, loss of appetite, muscle cramps, decreased urinary output, dry/itchy skin, swelling in lower extremities, high blood pressure, change in urination, and sob 2) Patient will take all medications consistently as prescribed 3) Patient will follow prescribed diet including any fluid restriction recommendations Procedures Procedure Name Priority Date/Time Associated Diagnosis Comments CT CHEST WO CON STAT 02/15/2023 1:12 PM CDT from Last 3 Months or Most Recently Relevant to Health Maintenance Results * CT CHEST WO CON (02/15/2023 1:12 PM CDT) Anatomical Region Laterality Modality Chest Computed Tomogra phy 02/15/2023 1:28 PM CDT Impressions 02/15/2023 1:39 PM CDT IMPRESSION: 1. Acute fracture of the sternum. 2. Right middle lobe collapse. 3. Coronary artery disease. 4. Emphysema. 5. Indeterminate 6.2 mm left lower lobe nodule. Fleischner society recommendations for solid nodules between 6 and 8 mm: followup imaging is recommended at 6 to 12 months for both high and low risk patients. 6. Other chronic or nonurgent findings as described above. Referred By: Interpreted By: Marvin Saez MD, 02/15/2023 1:28 PM Narrative 02/15/2023 1:39 PM CDT Examination: CT CHEST WO CON Clinical history: Chest pain Comparison: 01/23/2023 DATE/TIME: 02/15/2023 1:06 PM Technique: Multiplanar CT images of the chest were obtained without IV contrast. Oral contrast: None. A dose lowering technique was used for this procedure, which may include, but is not limited to, dose reduction technique, automated exposure control, the use of iterative reconstruction, and ALARA (As Low As Reasonably Achievable) / Image Gently techniques. Findings: Right IJ dialysis catheter tip at the right atrium/IVC junction. This is unchanged. Heart size upper limits of normal. Thoracic aorta is normal caliber. There is prominence of central pulmonary arteries, stable. No mediastinal or hilar lymphadenopathy. No pericardial effusion. Coronary artery calcifications. Bilateral linear opacities in the anterior right upper lobe and lingula, likely atelectasis. Right middle lobe is collapsed, new from the prior exam. The right middle lobe bronchus appears narrowed but no obvious obstructive mass identified. Mild to moderate upper lobe centrilobular emphysema. There is an indeterminate 6.2 mm nodule in the left lower lobe, series 3 image 66. No evidence of pneumonia or pulmonary edema identified. No pleural effusion or pneumothorax. Spleen is upper limits of normal size with somewhat globular configuration. There is a new, acute displaced fracture of the lower sternal body with mild angulation and cortical buckling. No definite acute rib fracture identified. Stable compression deformity of T4 with marked anterior wedging and resulting thoracic kyphosis, 80% anterior height loss. Stable compression deformity of T9 and T11. Left axillary vein stents noted. Procedure Note Marvin Saez MD - 02/15/2023 Examination: CT CHEST WO CON Clinical history: Chest pain Comparison: 01/23/2023 DATE/TIME: 02/15/2023 1:06 PM Technique: Multiplanar CT images of the chest were obtained without IVcontrast. Oral contrast: None. A dose lowering technique was used forthis procedure, which may include, but is not limited to, dose reductiontechnique, automated exposure control, the use of iterativereconstruction, and ALARA (As Low As Reasonably Achievable) / Image Gentlytechniques. Findings: Right IJ dialysis catheter tip at the right atrium/IVC junction.This is unchanged. Heart size upper limits of normal. Thoracic aorta is normal caliber.There is prominence of central pulmonary arteries, stable. No mediastinalor hilar lymphadenopathy. No pericardial effusion. Coronary arterycalcifications. Bilateral linear opacities in the anterior right upper lobe and lingula,likely atelectasis. Right middle lobe is collapsed, new from the priorexam. The right middle lobe bronchus appears narrowed but no obviousobstructive mass identified. Mild to moderate upper lobe centrilobularemphysema. There is an indeterminate 6.2 mm nodule in the left lowerlobe, series 3 image 66. No evidence of pneumonia or pulmonary edemaidentified. No pleural effusion or pneumothorax. Spleen is upper limits of normal size with somewhat globularconfiguration. There is a new, acute displaced fracture of the lowersternal body with mild angulation and cortical buckling. No definiteacute rib fracture identified. Stable compression deformity of T4 withmarked anterior wedging and resulting thoracic kyphosis, 80% anteriorheight loss. Stable compression deformity of T9 and T11. Left axillaryvein stents noted. IMPRESSION: 1. Acute fracture of the sternum. 2. Right middle lobe collapse. 3. Coronary artery disease. 4. Emphysema. 5. Indeterminate 6.2 mm left lower lobe nodule. Fleischner societyrecommendations for solid nodules between 6 and 8 mm: followup imaging isrecommended at 6 to 12 months for both high and low risk patients. 6. Other chronic or nonurgent findings as described above. Referred By: Interpreted By: Marvin Saez MD, 02/15/2023 1:28 PM Corbin Tejada MD CT Final Result from Last 3 Months or Most Recently Relevant to Health Maintenance Insurance MEDICAID [facility] Advance Directives * Full Code (Latest Code Status on File) Date Activated Date Inactivated Comments 03/11/2024 8:21 PM 03/15/2024 4:02 PM * Full Code Date Activated Date Inactivated Comments 02/16/2024 6:33 PM 02/23/2024 9:12 PM * Full Code Date Activated Date Inactivated Comments 02/04/2024 5:01 PM 02/10/2024 2:17 PM * Full Code Date Activated Date Inactivated Comments 01/26/2024 5:42 AM 01/27/2024 7:46 PM Care Teams Pneumatic Hoist Operator Relationship Specialty Start Date End Date Chinedu Felton MD [address] [place] [phone] PCP - General INTERNAL MEDICINE 08/08/24 Filippo Saleem MD [address] [place] [id number] Physician NEUROMUSCULOSKELETAL MEDICINE 07/26/24
--- OUTSIDE RECORDS SUMMARY | 2025-01-11 17:33 | XMS_ITS ---
Author Organization [facility] As [employer] [facility] Address [facility] [address] [facility] [address] [place] [address] Care Team Providers Care Preschool Lead Teacher Name Role Phone Gonzales, Waylon Unavailable [phone] Social History Sex Assigned At : Social History Observation Description Sex Assigned At Female Encounters Encounter Location Date Provider Diagnosis [place] [address] [address] [place] [address] 08/13/2024 Waylon Gonzales Plan Of Treatment No Information Progress Notes * JESUS ZALDIVAR RDOB: [birth year] (64 yo F)Acc No.[id number]:08/13/2024 Patient: JESUS PRICE Provider: JOHN ARAYA :1960 A ge:64 Y S ex:Female Date:08/13/2024 Address:[address] [place] [address] [id number] Subjective: * Chief Complaints: * * Medical History: * Surgical History: * Hospitalization/Major Diagno stic Procedure: * Medications: Objective: * Vitals: Assessment: Plan: * Treatment: * Procedure Codes: * Billing Information: * Visit Code: * Procedure Codes: * IX SYSTEMS ADMINISTRATOR Sign off status: Completed true * Provider: JOHN ARAYA Date: 0 08/13/2024 Generated for Gris leung/Bridget/Anusha on: 0 01/11/2025 05:32 PM [employer] SYSTEMS ADMINISTRATOR
[2025-01-11] MEDS: IPRATROPIUM 0.5 MG/ALBUTEROL SULFATE 2.5 MG AMPUL.NEB 3 ML INHALATION (17:41)
[2025-01-11] MEDS: MORPHINE SULFATE (*CRX) 2 MG/ML INJ IV PUSH ×2 (17:44→20:52)
[2025-01-11 19:31] LABS: Basophils Absolute Auto 0.1 K/mm3 (0.0-0.1); Basophils Percent Auto 0.3 % (0.2-1.2); Eosinophils Percent Auto 0.1 % (0-4.4); Hematocrit 30.9 % (37.0-47.0); Hemoglobin 9.7 g/dL (12.0-15.0); Immature Granulocyte Absolute 0.08 K/mm3 (0.00-0.031); Immature Granulocyte Percent A 0.5 % (0-0.5); Lymphocytes Absolute Auto 1.65 K/mm3 (0.9-3.2); Lymphocytes Percent Auto 10.2 % (18.3-44.2); Mean Corpuscular HGB Conc 31.4 g/dl (32-36); Mean Corpuscular Hemoglobin 34.6 pg (26-34); Mean Corpuscular Volume 110.4 fl (80-100); Mean Platelet Volume 11.2 fl (7.4-10.4); Monocytes Absolute Auto 0.9 K/mm3 (0.1-0.6); Monocytes Percent Auto 5.7 % (2.6-8.5); Neutrophils Absolute Auto 13.5 K/mm3 (1.3-6.7); Neutrophils Percent Auto 83.2 % (45.5-73.1); Platelet Count Result 140 k/mm3 (150-375); Red Cell Distribution Width 15.9 % (11.5-14.5); White Blood Count 16.2 K/mm3 (4.5-10.0)
[2025-01-11 19:43] LABS: INR 0.9; Prothrombin Time 12.9 Seconds (11.1-14.7)
[2025-01-11 19:44] LABS: Partial Thromboplastin Time 25.7 Seconds (22.3-36.8)
[2025-01-11 19:50] LABS: Platelet Estimate Adequate (Adequate)
[2025-01-11 19:51] LABS: Hypochromasia 3+
[2025-01-11 19:52] LABS: Alanine Aminotransferase 21 U/L (6-35); Albumin Level 3.6 g/dL (3.5-5.1); Alkaline Phosphatase 70 U/L (38-126); Anion Gap 7 mmol/L (4-12); Aspartate Amino Transferase 26 U/L (14-36); Bilirubin,Total 0.5 mg/dL (0.2-1.3); Blood Urea Nitrogen 20 mg/dL (7-17); Calcium 8.4 mg/dL (8.4-10.2); Carbon Dioxide 32 mmol/L (22-30); Chloride 94 mmol/L (98-107); Estimated CRCL calculation 13 ml/min; Estimated Glomerular Filt Rate 17; Glucose 77 mg/dL (65-110); Macrocytosis 2+ (NORMAL); Potassium 4.3 mmol/L (3.4-5.0); Sodium 133 mmol/L (137-145)
[2025-01-11 19:53] LABS: Basophilic Stippling 1+
[2025-01-11 19:57] LABS: Ovalocytes 1+; Schistocytes None Seen; Stomatocytes 1+
--- NOTE | 2025-01-11 20:13 | P.HP_ITS ---
H&P: HPI History of Present Illness Date/Time: 01/11/25 20:13 Chief Complaint: Trip and fall Narrative: 64-year-old female with a past medical history of end-stage renal disease on hemodialysis, COPD on chronic home O2, colostomy and prior left hip fracture with surgical repair who presented to the ER after tripping in her kitchen and falling resulting in right hip pain. The patient is uncooperative with history taking process and subsequently majority of history was obtained from ER physician. Patient was reportedly walking in her kitchen when she tripped and fell landing on her right side. She had immediate right hip pain. She reports that her hip pain is intractable. She evidently hit her head but denies loss of consciousness or headache. She reports that she has severe pain all over her body and is on methadone and Dilaudid at home. She reports that she has been laying down too long since she came into the ER and refuses to lay in the hospital bed at the time my evaluation spider hip fracture she is sitting up on the side of the bed. She reports that she may be a little bit more short of breath than baseline. She states that she cannot cough up her mucus. She is currently on 3 L nasal cannula where she is usually on 4 L to 6 L at home. She is still smoking 5 cigarettes a day. She denies any recent ill contacts. Her who COVID and RSV PCR were negative in the ER. She has been afebrile. She reports that she chronically has no appetite and does not S of weight loss. She cannot give me a time frame under weight loss. Her last weight within our computer system was 57 kg back in 2018. Weight currently is 44 kg. Review of Systems 2 Review of Systems: 12 systems were reviewed with pertinent positives and negatives per HPI. Except as documented in the HPI, all other systems were reviewed and are negative. Review of systems limited due to the [facility] Past Medical History Medical History (Updated 01/11/25 @ 22:26 by Sierra Sanchez DO) Tobacco abuse disorder Bipolar disorder Osteoporosis Chronic hypoxic respiratory failure, on home oxygen therapy End-stage renal disease on hemodialysis Monday on dialysis since 2016 History of vertebral fracture Anxiety COPD (chronic obstructive pulmonary disease) Surgical History Surgical History (Updated 01/11/25 @ 22:18 by Sierra Sanchez DO) Status post creation of arteriovenous fistula Bilateral upper arms the left being nonfunctional. Right still has palpable thrill and bruit patient receives dialysis through tunneled catheter in her right chest for logistic Dr. Merino History of appendectomy Hx of cholecystectomy Status post open reduction with internal fixation of fracture Left hip fracture History of colectomy With colostomy Family History Family History (Updated 01/11/25 @ 22:11 by Sierra Sanchez DO) Mother Diabetes mellitus Sibling Patient's sister is in good health Patient's brother is in good health Father Family history of lung cancer Social History Social History (Updated 01/11/25 @ 22:17 by Sierra Sanchez DO) Social History: Patient lives with her mother. She has 3 children. She has smoked up to 2 packs of cigarettes per day since she was 16 years old but is down to 5 cigarettes a day. She did not answer questions above drug or alcohol use. She is on chronic pain medications with methadone and Dilaudid. Code status: Full code Surrogate decision maker: Yobany (son) Smoking status: Current every day smoker Alcohol intake: current Meds Home Medications and Allergies Allergies Allergy/AdvReac Type Severity Reaction Status Date / Time No Known Allergies Allergy Verified 01/11/25 17:26 Vital Signs Vital Signs - 24 hr 01/11/25 17:06 01/11/25 17:41 01/11/25 17:44 Temperature 98.5 F Pulse Rate 107 H 97 95 Respiratory Rate 20 29 H 15 Blood Pressure 138/75 141/80 H Pulse Oximetry 100 100 Oxygen Delivery Room Air 01/11/25 18:49 Temperature Pulse Rate 97 Respiratory Rate 18 Blood Pressure 131/75 Pulse Oximetry 100 Oxygen Delivery Exam 2 Narrative: Weight 44 kg BMI 16.7 Const: Other: Cachectic, chronically ill-appearing, disheveled HENMT: Other: Head is normocephalic atraumatic, nasal cannula in place, mucous membranes tacky Eyes: Other: Pupils are equal and reactive, positive conjunctival pallor, no scleral icterus Neck: Other: No JVD, trachea appears midline patient did not allow palpation of her neck Resp: Other: Decreased breath sounds bilaterally, no increased work of breathing Cardio: Other: Mildly tachycardic, regular rhythm, 2+ bilateral pedal pulses, palpable thrill over right upper extremity AV fistula, decreased pulse in the left and and lack of thrill over the left AV fistula GI: Other: Concave, soft, nontender : Other: Pure wick catheter in place Back/Spine/Pelvis: Other: Marked thoracic kyphosis Skin: Other: Generalized pallor, non jaundice Neuro: Other: Alert oriented x3, speech is clear, no facial asymmetry, extraocular movements appear to be grossly intact, no localizing neurologic deficits noted during the course of conversation Extrem: Other: A pink, cyanosis or edema, see comments but AV fistula the under cardiac exam, sensation intact of bilateral lower extremities, patient is sitting up on the bedside and shaking her left leg, she does not allow for further evaluation of her right extremity Psych: Other: Uncooperative, flat affect, avoids eye contact H&P: Results Labs Labs: Laboratory Tests 01/11/25 19:24 01/11/25 19:24 01/11/25 19:24 WBC 16.2 H RBC 2.80 L Hgb 9.7 L Hct 30.9 L MCV 110.4 H MCH 34.6 H MCHC 31.4 L RDW 15.9 H Plt Count 140 L MPV 11.2 H Immature Gran % (Auto) 0.5 Neut % (Auto) 83.2 H Lymph % (Auto) 10.2 L [place] % (Auto) 5.7 Eos % (Auto) 0.1 Baso % (Auto) 0.3 Lymph # (Auto) 1.65 [place] # (Auto) 0.9 H Eos # (Auto) 0.0 Baso # (Auto) 0.1 Abs Immat Gran (auto) 0.08 H Absolute Neuts (auto) 13.5 H Absolute Nucleated RBC 0.000 Nucleated RBC % 0.0 Platelet Estimate Adequate Hypochromasia 3+ Basophilic Stippling 1+ Macrocytosis 2+ Ovalocytes 1+ Stomatocytes 1+ Schistocytes None seen PT 12.9 INR 0.9 APTT 25.7 Sodium 133 L Potassium 4.3 Chloride 94 L Carbon Dioxide 32 H Anion Gap 7 BUN 20 H Creatinine 2.81 H Estim Creat Clear Calc 13 Estimated GFR 17 L Glucose 77 Calcium 8.4 Total Bilirubin 0.5 AST 26 ALT 21 Alkaline Phosphatase 70 Total Protein 6.0 L Albumin 3.6 Impressions Chest X-Ray 01/11/25 18:24 IMPRESSION: Mild pulmonary vascular congestion, without focal infiltrate or effusion. Hip/Pelvis X-Ray 01/11/25 18:25 IMPRESSION: Acute minimally displaced fracture of the right femoral neck, as detailed above. Knee X-Ray 01/11/25 18:27 IMPRESSION: Degenerative disease without acute fracture. All imaging and EKGs personally reviewed and interpreted. And unless stated otherwise agree with radiologic and cardiology interpretation. Assessment and Plan Assessment and plan (1) Femoral neck fracture: Qualifiers: Encounter type: initial encounter Fracture type: closed Laterality: r ight Qualified Code(s): S72.001A - Fracture of unspecified part of neck of right femur, initial encounter for closed fracture Code(s): S72.009A - Fracture of unspecified part of neck of unspecified femur, initial encounter for closed fracture Status: Acute (2) End-stage renal disease on hemodialysis: Code(s): N18.6 - End stage renal disease; Z99.2 - Dependence on renal dialysis Status: Acute (3) Chronic hypoxic respiratory failure, on home oxygen therapy: Code(s): J96.11 - Chronic respiratory failure with hypoxia; Z99.81 - Dependence on supplemental oxygen Status: Acute (4) Protein-calorie malnutrition, severe: Code(s): E43 - Unspecified severe protein-calorie malnutrition Status: Acute (5) Osteoporosis: Qualifiers: Osteoporosis type: unspecified Presence of current pathological fracture: with current pathological fracture Encounter type: initial encounter Qualified Code(s): M80.00XA - Age-related osteoporosis with current pathological fracture, unspecified site, initial encounter for fracture Code(s): M81.0 - Age-related osteoporosis without current pathological fracture Status: Acute (6) Bipolar disorder: Qualifiers: Active/Remission status: remission status unspecified Qualified Code(s): F31.9 - Bipolar disorder, unspecified Code(s): F31.9 - Bipolar disorder, unspecified Status: Acute (7) Tobacco abuse disorder: Code(s): Z72.0 - Tobacco use Status: Acute Plan Patient has fall with right hip fracture. Patient will be NPO midnight will await further recommendation from Orthopedic surgery. P.r.n. pain medications have been provided. Patient does have a significant history of chronic pain. Will resume patient's home methadone. Will continue patient's home p.o. Dilaudid as needed for pain 7-10 in the at IV Dilaudid as needed for breakthrough pain. Will I would Narcan as needed pure Patient does have end-stage renal disease electrolytes are stable. She completed hemodialysis prior to her fall today. Will continue patient's home oxygen and will provide p.r.n. DuoNebs. Will continue patient's home inhalers. Smoking cessation has been encouraged. Will provide smoking cessation information. Patient is not interested in quitting at this time Will resume the patient's home psychiatric medications including anxiety medications. Patient has been admitted as observation status. Quality VTE Prophylaxis VTE prophylaxis: mechanical ordered (SCDs) Hospitalist [facility] Advance Care Plan I have confirmed that the patient's Advanced Care Plan is present, code status is documented, or surrogate decision maker is listed in patient medical record.: Yes Medication Reconciliation I have utilized all available resources to obtain, update and review the patients current medications (includes all prescriptions, OTC, herbals, cannabis, and nutritional supplements).: Yes
[2025-01-11] MEDS: ONDANSETRON INJ 4 MG/2 ML VIAL IV PUSH (20:51)
[2025-01-11] MEDS: LORazepam (*CRX) 0.5 MG TABLET PO (22:51)
[2025-01-12] VITALS (7 sets, daily range): BP systolic 106–122; BP diastolic 51–89; PULSE 72–100; RESP 16–22; TEMP 36.3–36.7; O2SAT 94–100
[2025-01-12] MEDS: hydrOXYzine HCL 25 MG TABLET PO ×6 (02:44→21:48)
[2025-01-12] MEDS: rOPINIRole HCL 0.5 MG TABLET PO ×2 (02:45→21:49)
[2025-01-12] MEDS: HYDROmorphone HCL INJ (*CRX) 1 MG/ML SYR IV PUSH (02:47)
--- NOTE | 2025-01-12 05:01 | ADMGEN ---
This patient, Brian Leach, was admitted to [facility] Surg Room 324-02. Patient/family oriented to hospital policies and general routines including ID bracelet, bed and alarms, visiting hours, pain management, procedures, bathroom and other care routines, personal items, smoking policy, room service/diet, and visiting hours. Information on how to activate the Rapid Response Team has been discussed. Patient/Family are encouraged to report perceived risks to care and to ask questions if they do not understand what they are told or what they should do.
[2025-01-12] MEDS: methADONE HCL (*CRX) 5 MG TABLET PO (08:35)
[2025-01-12] MEDS: clonazePAM (*CRX) 0.5 MG TABLET PO ×4 (08:35→21:48)
[2025-01-12] MEDS: HYDROmorphone HCL (*CRX) 4 MG TABLET PO ×2 (10:31→21:49)
--- NOTE | 2025-01-12 12:57 | P.PNIM_ITS ---
Progress Note: A&P Assessment and Plan (1) Femoral neck fracture: Qualifiers: Encounter type: initial encounter Fracture type: closed Laterality: right Qualified Code(s): S72.001A - Fracture of unspecified part of neck of right femur, initial encounter for closed fracture Code(s): S72.009A - Fracture of unspecified part of neck of unspecified femur, initial encounter for closed fracture Status: Acute (2) End-stage renal disease on hemodialysis: Code(s): N18.6 - End stage renal disease; Z99.2 - Dependence on renal dialysis Status: Acute (3) Chronic hypoxic respiratory failure, on home oxygen therapy: Code(s): J96.11 - Chronic respiratory failure with hypoxia; Z99.81 - Dependence on supplemental oxygen Status: Acute (4) Protein-calorie malnutrition, severe: Code(s): E43 - Unspecified severe protein-calorie malnutrition Status: Acute (5) Osteoporosis: Qualifiers: Encounter type: initial encounter Osteoporosis type: unspecified Presence of current pathological fracture: with current pathological fracture Qualified Code(s): M80.00XA - Age-related osteoporosis with current pathological fracture, unspecified site, initial encounter for fracture Code(s): M81.0 - Age-related osteoporosis without current pathological fracture Status: Acute (6) Bipolar disorder: Qualifiers: Active/Remission status: remission status unspecified Qualified Code(s): F31.9 - Bipolar disorder, unspecified Code(s): F31.9 - Bipolar disorder, unspecified Status: Acute (7) Tobacco abuse disorder: Code(s): Z72.0 - Tobacco use Status: Acute Plan Patient has fall with right hip fracture. Patient will be NPO- awaiting recommendation from Orthopedic surgery. \ P.r.n. pain medications Patient does have a significant history of chronic pain. Will resume patient's home methadone. Will continue patient's home p.o. Dilaudid as needed for pain 7-10 in the at IV Dilaudid as needed for breakthrough pain. # ESRD- she did hemodialysis prior to her fall nephrology consult to help with dialysis -continue home oxygen p.r.n. DuoNebs. continue patient's home inhalers. Smoking cessation has been encouraged. Patient is not interested in quitting at this time Will resume the patient's home psychiatric medications including anxiety medications. Time Spent With Patient Time with patient: 25 - 35 minutes Subjective Date/time seen: 01/12/25 12:57 Interval history: 64-year-old female with a past medical history of end-stage renal disease on hemodialysis, COPD on chronic home O2, colostomy and prior left hip fracture with surgical repair who presented to the ER after tripping in her kitchen and falling resulting in right hip pain. The patient is uncooperative with history taking process and subsequently majority of history was obtained from ER physician. Patient was reportedly walking in her kitchen when she tripped and fell landing on her right side. She had immediate right hip pain. She reports that her hip pain is intractable. She evidently hit her head but denies loss of consciousness or headache. She reports that she has severe pain all over her body and is on methadone and Dilaudid at home. She reports that she has been laying down too long since she came into the ER and refuses to lay in the hospital bed at the time my evaluation spider hip fracture she is sitting up on the side of the bed. She reports that she may be a little bit more short of breath than baseline. She states that she cannot cough up her mucus. She is currently on 3 L nasal cannula where she is usually on 4 L to 6 L at home. She is still smoking 5 cigarettes a day. seen and examined. pain, nausea control, awaiting ortho consult. Review of Systems Review of Systems: 12 systems were reviewed with pertinent positives and negatives per HPI. Except as documented in the HPI, all other systems were reviewed and are negative. Review of systems limited due to the Exam Narrative: Weight 44 kg BMI 16.7 Const: Other: Cachectic, chronically ill-appearing, disheveled HENMT: Other: Head is normocephalic atraumatic, nasal cannula in place, mucous membranes tacky Eyes: Other: Pupils are equal and reactive, positive conjunctival pallor, no scleral icterus Neck: Other: No JVD, trachea appears midline patient did not allow palpation of her neck Resp: Other: Decreased breath sounds bilaterally, no increased work of breathing Cardio: Other: Mildly tachycardic, regular rhythm, 2+ bilateral pedal pulses, palpable thrill over right upper extremity AV fistula, decreased pulse in the left and and lack of thrill over the left AV fistula GI: Other: Concave, soft, nontender : Other: Pure wick catheter in place Back/Spine/Pelvis: Other: Marked thoracic kyphosis Skin: Other: Generalized pallor, non jaundice Neuro: Other: Alert oriented x3, speech is clear, no facial asymmetry, extraocular movements appear to be grossly intact, no localizing neurologic deficits noted during the course of conversation Extrem: Other: A pink, cyanosis or edema, see comments but AV fistula the under cardiac exam, sensation intact of bilateral lower extremities, patient is sitting up on the bedside and shaking her left leg, she does not allow for further evaluation of her right extremity Psych: Other: Uncooperative, flat affect, avoids eye contact Objective Data Vital Signs Vital Signs: Vital Signs - 24 hr 01/11/25 17:06 01/11/25 17:41 01/11/25 17:44 Temperature 98.5 F Pulse Rate 107 H 97 95 Respiratory Rate 20 29 H 15 Blood Pressure 138/75 141/80 H Pulse Oximetry 100 100 Oxygen Delivery Room Air Oxygen Flow Rate 01/11/25 18:49 01/11/25 20:57 01/11/25 21:11 Temperature Pulse Rate 97 101 H Respiratory Rate 18 20 Blood Pressure 131/75 129/77 Pulse Oximetry 100 97 98 Oxygen Delivery Nasal Cannula Oxygen Flow Rate 4 01/11/25 21:40 01/11/25 22:41 01/11/25 23:10 Temperature 97.6 F Pulse Rate 101 H 99 Respiratory Rate 20 14 Blood Pressure 129/77 103/63 Pulse Oximetry 97 99 94 Oxygen Delivery Nasal Cannula Oxygen Flow Rate 4 01/12/25 06:00 01/12/25 08:00 Temperature 98.0 F Pulse Rate 96 Respiratory Rate 22 H Blood Pressure 122/71 Pulse Oximetry 100 100 Oxygen Delivery Nasal Cannula Oxygen Flow Rate 4 Intake/Output Intake/Output: Intake & Output 01/09/25 01/10/25 01/11/25 01/12/25 23:59 23:59 23:59 23:59 Intake Total 100 Output Total 125 Balance -25 Meds/Results Medications: Active Medications Generic Name Dose Route Start Last Admin Trade Name Freq PRN Reason Stop Dose Admin Albuterol/Ipratropium 3 ml 01/11/25 20:51 Ipratropium 0.5 Mg/Albuterol Sulfate 2.5 Mg Ampul.Neb 3 Ml INHALATION Q6HRT PRN Shortness Of Breath Clonazepam 0.5 mg 01/12/25 09:00 01/12/25 08:35 Clonazepam (*Crx) 0.5 Mg Tablet PO 0.5 mg QID RON Administration Duloxetine HCl 20 mg 01/12/25 01:00 Duloxetine Hcl 20 Mg Capsule.Dr RAF sofia [facility] Hydromorphone HCl 4 mg 01/11/25 22:08 01/12/25 10:31 Hydromorphone Hcl (*Crx) 4 Mg Tablet PO 4 mg Q4H PRN Administration Pain Rated 7-10 Hydromorphone HCl 1 mg 01/11/25 22:08 01/12/25 02:47 Hydromorphone Hcl Inj (*Crx) 1 Mg/Ml Syr IV PUSH 1 mg Q2H PRN Administration Breakthrough Pain Hydroxyzine HCl 25 mg 01/12/25 01:00 01/12/25 08:35 Hydroxyzine Hcl 25 Mg Tablet PO 25 mg Q4H RON Administration Ipratropium Switzer 2 spray 01/12/25 09:00 01/12/25 08:35 Ipratropium Nasal [place] 0.03% 15 Ml Bottle NASAL Not Given DAILY [facility] Methadone HCl 5 mg 01/12/25 09:00 01/12/25 08:35 Methadone Hcl (*Crx) 5 Mg Tablet PO 5 mg DAILY RON Administration Morphine Sulfate 2 mg 01/11/25 19:08 01/11/25 20:52 Morphine Sulfate (*Crx) 2 Mg/Ml Inj IV PUSH 2 mg Q2H PRN Administration Pain Rated 7-10 Naloxone HCl 0.1 mg 01/11/25 22:27 Naloxone Hcl 0.4 Mg/Ml Vial IV PUSH Q5MIN PRN Opiate overdose Ondansetron HCl 4 mg 01/11/25 19:08 01/11/25 20:51 Ondansetron Inj 4 Mg/2 Ml Vial IV PUSH 4 mg Q4H PRN Administration Nausea Ropinirole HCl 0.5 mg 01/12/25 01:00 01/12/25 02:45 Ropinirole Hcl 0.5 Mg Tablet PO 0.5 mg HS RON Administration Radiology Results: ITS Impressions Chest X-Ray 01/11/25 18:24 IMPRESSION: Mild pulmonary vascular congestion, without focal infiltrate or effusion. Hip/Pelvis X-Ray 01/11/25 18:25 IMPRESSION: Acute minimally displaced fracture of the right femoral neck, as detailed above. Knee X-Ray 01/11/25 18:27 IMPRESSION: Degenerative disease without acute fracture. Labs Labs: Laboratory Results - last 24 hr 01/11/25 19:24 WBC 16.2 H RBC 2.80 L Hgb 9.7 L Hct 30.9 L MCV 110.4 H MCH 34.6 H MCHC 31.4 L RDW 15.9 H Plt Count 140 L MPV 11.2 H Immature Gran % (Auto) 0.5 Neut % (Auto) 83.2 H Lymph % (Auto) 10.2 L [place] % (Auto) 5.7 Eos % (Auto) 0.1 Baso % (Auto) 0.3 Lymph # (Auto) 1.65 [place] # (Auto) 0.9 H Eos # (Auto) 0.0 Baso # (Auto) 0.1 Abs Immat Gran (auto) 0.08 H Absolute Neuts (auto) 13.5 H Absolute Nucleated RBC 0.000 Nucleated RBC % 0.0 Platelet Estimate Adequate Hypochromasia 3+ Basophilic Stippling 1+ Macrocytosis 2+ Ovalocytes 1+ Stomatocytes 1+ Schistocytes None seen PT 12.9 INR 0.9 APTT 25.7 Sodium 133 L Potassium 4.3 Chloride 94 L Carbon Dioxide 32 H Anion Gap 7 BUN 20 H Creatinine 2.81 H Estim Creat Clear Calc 13 Estimated GFR 17 L Glucose 77 Calcium 8.4 Total Bilirubin 0.5 AST 26 ALT 21 Alkaline Phosphatase 70 Total Protein 6.0 L Albumin 3.6 Blood Type O Positive Antibody Screen Negative Quality VTE Prophylaxis VTE prophylaxis: mechanical ordered (SCDs)
--- NOTE | 2025-01-12 14:26 | PC.NURSE ---
Vape pen confiscated from patient's bed linens and placed in safe on 3 med surg in a bag with patient data operations manager it.
[2025-01-12] MEDS: NICOTINE (*PBKC) 21 MG PATCH 1 PATCH TRANSDERM (16:23)
[2025-01-12] MEDS: IPRATROPIUM 0.5 MG/ALBUTEROL SULFATE 2.5 MG AMPUL.NEB 3 ML INHALATION (22:27)
[2025-01-13] MEDS: hydrOXYzine HCL 25 MG TABLET PO ×6 (00:08→21:37)
[2025-01-13 06:00] VITALS: BP 111/53; PULSE 72; RESP 16; TEMP 36.2; O2SAT 92
[2025-01-13 07:32] LABS: Hepatitis B Surface Antigen Negative (Negative)
[2025-01-13] MEDS: MORPHINE SULFATE (*CRX) 2 MG/ML INJ IV PUSH ×2 (08:08→21:37)
[2025-01-13] MEDS: IPRATROPIUM 0.5 MG/ALBUTEROL SULFATE 2.5 MG AMPUL.NEB 3 ML INHALATION (08:52)
[2025-01-13 08:53] VITALS: PULSE 90; RESP 20; O2SAT 96
[2025-01-13 09:08] VITALS: PULSE 85; RESP 20
--- NOTE | 2025-01-13 09:53 | P.CONOP_ITS ---
Assessment and Plan Assessment and plan (1) Femoral neck fracture: Qualifiers: Encounter type: initial encounter Fracture type: closed Laterality: r ight Qualified Code(s): S72.001A - Fracture of unspecified part of neck of right femur, initial encounter for closed fracture Code(s): S72.009A - Fracture of unspecified part of neck of unspecified femur, initial encounter for closed fracture Status: Acute Assessment and Plan: History, exam and radiographs reviewed with the patient. Radiographs of the right hip reveal an acute minimally displaced fracture of the right femoral neck. Discussed nonoperative and operative treatment options with the patient. The patients questions were answered. The patient desires operative treatment. Discussed CRPP of the right hip Risks of surgery including but not limited to neurovascular damage, wound complications, blood clot, pulmonary embolus, stroke, myocardial infarction, anesthetic risks up to and including were reviewed. Continued pain and possible dysfunction were explained. Increased risk of failure of components due to history of renal failure on HD. Risk for revision possible. No guarantees were offered. The patient understands and wishes to proceed. Plan: CRPP right hip by Dr. Britton WISEMAN at midnight. Pain control. Bedrest. Resumed diet in the interim. Obtain consent. History of Present Illness HPI Consult date: 01/13/25 Chief complaint: Femoral neck fracture Narrative: 64-year-old female admitted from the emergency room after a fall at home in her kitchen resulting in a right hip fracture. Patient has a history of end-stage renal disease and is on hemodialysis. Radiographs in the emergency room revealed an acute minimally displaced fracture of the right femoral neck. Patient reports having hit her head but denies any loss of consciousness. She has generalized pain and is on chronic pain medication at home. She does have a history of a left hip fracture which was surgically treated with a closed reduction perc pinning per radiographic findings. Review of Systems 2 Review of Systems: All systems reviewed & are unremarkable except as noted in HPI and below PMFSH Past Medical History Medical History (Updated 01/11/25 @ 22:26 by Sierra Sanchez DO) Tobacco abuse disorder Bipolar disorder Osteoporosis Chronic hypoxic respiratory failure, on home oxygen therapy End-stage renal disease on hemodialysis Monday on dialysis since 2015 History of vertebral fracture Anxiety COPD (chronic obstructive pulmonary disease) Surgical History Surgical History (Updated 01/11/25 @ 22:18 by Sierra Sanchez DO) Status post creation of arteriovenous fistula Bilateral upper arms the left being nonfunctional. Right still has palpable thrill and bruit patient receives dialysis through tunneled catheter in her right chest for logistic Dr. Merino History of appendectomy Hx of cholecystectomy Status post open reduction with internal fixation of fracture Left hip fracture History of colectomy With colostomy Family History Family History (Updated 01/11/25 @ 22:11 by Sierra Sanchez DO) Mother Diabetes mellitus Sibling Patient's sister is in good health Patient's brother is in good health Father Family history of lung cancer Social History Social History (Updated 01/11/25 @ 22:17 by Sierra Sanchez DO) Social History: Patient lives with her mother. She has 3 children. She has smoked up to 2 packs of cigarettes per day since she was 16 years old but is down to 5 cigarettes a day. She did not answer questions above drug or alcohol use. She is on chronic pain medications with methadone and Dilaudid. Code status: Full code Surrogate decision maker: Yobany (son) Smoking status: Current every day smoker Tobacco type: cigarettes Alcohol intake: never Substance use type: does not use Do You Feel Safe in your Home?: Yes Lack of Transportation: No Lack of Food: Never True Current Housing: I Have Housing Concerned About Future Housing: No Difficulty Paying Gas/Electric Bills: Decline to Answer Difficulty Paying for Meds: Decline to Answer Currently Unemployed: Decline to Answer Education: Grade School Difficulty w/ Childcare or Family Care: No Spiritual care concerns: No Meds Home Medications and Allergies Home Medications ?Medication ?Instructions ?Recorded ?Confirmed ?Type albuterol sulfate 90 mcg/actuation 2 puff inhalation Q3-4H PRN 01/11/25 01/11/25 History aerosol inhaler shortness of breath or wheezing clonazepam 0.5 mg tablet 0.5 mg PO QID 01/11/25 01/11/25 History duloxetine 20 mg capsule,delayed 20 mg PO .dialy 01/11/25 01/11/25 History release hydromorphone 4 mg tablet 4 mg PO Q6H 01/11/25 01/11/25 History hydroxyzine HCl 25 mg tablet 25 mg PO Q4H 01/11/25 01/11/25 History ipratropium bromide 21 mcg (0.03 2 spray intranasal DAILY 01/11/25 01/11/25 History %) nasal spray methadone 10 mg tablet 5 mg PO DAILY 01/11/25 01/11/25 History ropinirole 0.5 mg tablet 0.5 mg PO HS 01/11/25 01/11/25 History Allergies Allergy/AdvReac Type Severity Reaction Status Date / Time No Known Allergies Allergy Verified 01/11/25 17:26 Vital Signs Vital Signs - 24 hr 01/12/25 13:34 01/12/25 20:00 01/12/25 22:00 Temperature 36.3 C L 36.5 C Pulse Rate 79 72 Respiratory Rate 16 16 Blood Pressure 106/51 L 122/89 Pulse Oximetry 96 94 100 Oxygen Delivery Nasal Cannula Oxygen Flow Rate 4 01/12/25 22:28 01/12/25 22:29 01/13/25 06:00 Temperature 36.2 C L Pulse Rate 100 72 Respiratory Rate 20 16 Blood Pressure 111/53 L Pulse Oximetry 94 92 Oxygen Delivery Nasal Cannula Oxygen Flow Rate 4 01/13/25 08:53 01/13/25 08:53 01/13/25 09:08 Temperature Pulse Rate 90 90 85 Respiratory Rate 20 20 20 Blood Pressure Pulse Oximetry 96 Oxygen Delivery Nasal Cannula Oxygen Flow Rate 4 Exam 2 Const: General: cooperative, comfortable and average body habitus N utritional Appearance: average body habitus Limitations: no limitations HENMT: Head: normal to inspection and No palpable skull fracture present E ars: hearing grossly normal bilaterally and external ears normal F leticia/Nose/Sinus: Normal external nose present, Normal nares present, Normal nasal mucous membranes and turbinates present and normal facial exam Face and sinus: normal facial exam Mouth: Yes Normal oral and palatal mucosa present Teeth and gingiva: dentition normal Eyes: General: appearance normal, both eyes and all related structures S clera: sclerae normal Pupils: Equal, round and reactive pupils present Neck: Neck: normal visual inspection and full ROM Resp: Effort & Inspection: normal respiratory effort and able to speak in complete sentences Cardio: Jugular venous distension: no JVD Rate: regular rate Rhythm: r egular rhythm GI: Inspection: normal to inspection GI Palp: No abdominal tenderness Skin: General skin exam: normal color and no rashes or lesions noted W ounds: no wounds Neuro: General: No gait normal (NWB ), No moves all extremities and Unable to assess gait (bedrest ) Cranial nerves: Yes Equal, round and reactive pupils present Cognition (Neuro): normal cognition Speech: normal speech Gait exam (Neuro): Unable to assess gait (bedrest ) Sensory Exam: normal sensation Extrem: Right lower extremity: hip/thigh Details: abnormal to inspection Details: foreshortened and externally rotated, swelling Location: at the hip and abnormal ROM Details: held in an abnormal fashion Details: in external rotation, knee Details: normal to inspection and abnormal ROM Details: held in an abnormal fashion Details: in flexion; no tenderness, no swelling, no lacerations, no ecchymosis and no crepitus, lower leg Details: normal to inspection and no edema; no tenderness, ankle Details: normal to inspection and normal ROM and foot Details: normal capillary refill and vascular exam Details: dorsalis pedis pulse present Psych: Appearance: grossly normal Results Labs 01/13/25 10:52 01/13/25 10:52 Labs: H & H 01/11/25 Range/Units 19:24 Hgb 9.7 L (12.0-15.0) g/dL Hct 30.9 L (37.0-47.0) % Coagulation 01/11/25 Range/Units 19:24 INR 0.9 All other labs normal.
[2025-01-13] MEDS: NICOTINE (*PBKC) 21 MG PATCH 1 PATCH TRANSDERM (10:11)
[2025-01-13] MEDS: methADONE HCL (*CRX) 5 MG TABLET PO (10:11)
[2025-01-13] MEDS: clonazePAM (*CRX) 0.5 MG TABLET PO ×4 (10:11→21:37)
--- NOTE | 2025-01-13 10:21 | P.PNIM_ITS ---
Progress Note: A&P Assessment and Plan (1) Femoral neck fracture: Qualifiers: Encounter type: initial encounter Fracture type: closed Laterality: right Qualified Code(s): S72.001A - Fracture of unspecified part of neck of right femur, initial encounter for closed fracture Code(s): S72.009A - Fracture of unspecified part of neck of unspecified femur, initial encounter for closed fracture Status: Acute (2) End-stage renal disease on hemodialysis: Code(s): N18.6 - End stage renal disease; Z99.2 - Dependence on renal dialysis Status: Acute (3) Chronic hypoxic respiratory failure, on home oxygen therapy: Code(s): J96.11 - Chronic respiratory failure with hypoxia; Z99.81 - Dependence on supplemental oxygen Status: Acute (4) Protein-calorie malnutrition, severe: Code(s): E43 - Unspecified severe protein-calorie malnutrition Status: Acute (5) Osteoporosis: Qualifiers: Encounter type: initial encounter Osteoporosis type: unspecified Presence of current pathological fracture: with current pathological fracture Qualified Code(s): M80.00XA - Age-related osteoporosis with current pathological fracture, unspecified site, initial encounter for fracture Code(s): M81.0 - Age-related osteoporosis without current pathological fracture Status: Acute (6) Bipolar disorder: Qualifiers: Active/Remission status: remission status unspecified Qualified Code(s): F31.9 - Bipolar disorder, unspecified Code(s): F31.9 - Bipolar disorder, unspecified Status: Acute (7) Tobacco abuse disorder: Code(s): Z72.0 - Tobacco use Status: Acute Plan Patient has fall with right hip fracture. Surgery tomorrow, 01/14 around 1500-will start diet now and NPO at mightnight P.r.n. pain medications Patient does have a significant history of chronic pain. Will resume patient's home methadone. Will continue patient's home p.o. Dilaudid as needed for pain 7-10 in the at IV Dilaudid as needed for breakthrough pain. # ESRD- she did hemodialysis prior to her fall nephrology consult to help with dialysis -continue home oxygen p.r.n. DuoNebs. continue patient's home inhalers. Smoking cessation has been encouraged. Patient is not interested in quitting at this time Will resume the patient's home psychiatric medications including anxiety medications. added bendryl prn for itchyness Time Spent With Patient Time with patient: 25 - 35 minutes Subjective Date/time seen: 01/13/25 10:21 Interval history: 64-year-old female with a past medical history of end-stage renal disease on hemodialysis, COPD on chronic home O2, colostomy and prior left hip fracture with surgical repair who presented to the ER after tripping in her kitchen and falling resulting in right hip pain. Ortho consulted. 01/13- surgery tomorrow at 1500. she is very anxious as a base line. reports too much going on . eating and drinking ok. requiring pain meds pretty much around the clock. Review of Systems Constitutional: Constitutional: Denies chills Musculoskeletal: Comments: rt hip pain Psychiatric: Psychiatric: Reports anxiety Exam Narrative: Weight 44 kg BMI 16.7 Const: Other: chronically ill-appearing HENMT: Other: Head is normocephalic atraumatic, nasal cannula in place, mucous membranes tacky Eyes: Other: Pupils are equal and reactive, positive conjunctival pallor, no scleral icterus Neck: Other: No JVD, trachea appears midline patient did not allow palpation of her neck Resp: Other: Decreased breath sounds bilaterally, no increased work of breathing Cardio: Other: over right upper extremity AV fistula, decreased pulse in the left and and lack of thrill over the left AV fistula GI: Other: Concave, soft, nontender : Other: Pure wick catheter in place Back/Spine/Pelvis: Other: Marked thoracic kyphosis Skin: Other: Generalized pallor, non jaundice Neuro: Other: Alert oriented x3, speech is clear, no facial asymmetry, extraocular movements appear to be grossly intact, no localizing neurologic deficits noted during the course of conversation Extrem: Other: A pink, cyanosis or edema, see comments but AV fistula the under cardiac exam, sensation intact of bilateral lower extremities, patient is sitting up on the bedside and shaking her left leg, she does not allow for further evaluation of her right extremity Psych: Other: flat affect, avoids eye contact Objective Data Vital Signs Vital Signs: Vital Signs - 24 hr 01/12/25 13:34 01/12/25 20:00 01/12/25 22:00 Temperature 97.4 F L 97.7 F Pulse Rate 79 72 Respiratory Rate 16 16 Blood Pressure 106/51 L 122/89 Pulse Oximetry 96 94 100 Oxygen Delivery Nasal Cannula Oxygen Flow Rate 4 01/12/25 22:28 01/12/25 22:29 01/13/25 06:00 Temperature 97.2 F L Pulse Rate 100 72 Respiratory Rate 20 16 Blood Pressure 111/53 L Pulse Oximetry 94 92 Oxygen Delivery Nasal Cannula Oxygen Flow Rate 4 01/13/25 08:53 01/13/25 08:53 01/13/25 09:08 Temperature Pulse Rate 90 90 85 Respiratory Rate 20 20 20 Blood Pressure Pulse Oximetry 96 Oxygen Delivery Nasal Cannula Oxygen Flow Rate 4 Intake/Output Intake/Output: Intake & Output 01/10/25 01/11/25 01/12/25 01/13/25 23:59 23:59 23:59 23:59 Intake Total 400 390 Output Total 225 25 Balance 175 365 Meds/Results Medications: Active Medications Generic Name Dose Route Start Last Admin Trade Name Freq PRN Reason Stop Dose Admin Albuterol/Ipratropium 3 ml 01/11/25 20:51 01/13/25 08:52 Ipratropium 0.5 Mg/Albuterol Sulfate 2.5 Mg Ampul.Neb 3 Ml INHALATION 3 ml Q6HRT PRN Administration Shortness Of Breath Clonazepam 0.5 mg 01/12/25 09:00 01/13/25 10:11 Clonazepam (*Crx) 0.5 Mg Tablet PO 0.5 mg QID RON Administration Duloxetine HCl 20 mg 01/12/25 01:00 Duloxetine Hcl 20 Mg Capsule.Dr CARBONE .linda [facility] Hydromorphone HCl 4 mg 01/11/25 22:08 01/12/25 21:49 Hydromorphone Hcl (*Crx) 4 Mg Tablet PO 4 mg Q4H PRN Administration Pain Rated 7-10 Hydromorphone HCl 1 mg 01/11/25 22:08 01/12/25 02:47 Hydromorphone Hcl Inj (*Crx) 1 Mg/Ml Syr IV PUSH 1 mg Q2H PRN Administration Breakthrough Pain Hydroxyzine HCl 25 mg 01/12/25 01:00 01/13/25 10:12 Hydroxyzine Hcl 25 Mg Tablet PO 25 mg Q4H RON Administration Tranexamic Acid/Sodium Chloride 1,000 mg in 100 mls @ 200 mls/hr 01/13/25 09:59 Tranexamic Acid 1,000mg/[id number] IVPB 01/13/25 10:28 ONCE ONE Cefazolin Sodium 2 gm in 50 mls @ 100 mls/hr 01/13/25 09:59 Ancef 2 Gm/D5w 50 Ml IVPB 01/13/25 10:28 ONCE ONE Ipratropium [place] 2 spray 01/12/25 09:00 01/12/25 08:35 Ipratropium Nasal [place] 0.03% 15 Ml Bottle NASAL Not Given DAILY RON Methadone HCl 5 mg 01/12/25 09:00 01/13/25 10:11 Methadone Hcl (*Crx) 5 Mg Tablet PO 5 mg DAILY RON Administration Morphine Sulfate 2 mg 01/11/25 19:08 01/13/25 08:08 Morphine Sulfate (*Crx) 2 Mg/Ml Inj IV PUSH 2 mg Q2H PRN Administration Pain Rated 7-10 Naloxone HCl 0.1 mg 01/11/25 22:27 Naloxone Hcl 0.4 Mg/Ml Vial IV PUSH Q5MIN PRN Opiate overdose Nicotine 1 patch 01/12/25 16:10 01/13/25 10:11 Nicotine (*Pbkc) 21 Mg Patch TRANSDERM 1 patch DAILY RON Administration Ondansetron HCl 4 mg 01/11/25 19:08 01/11/25 20:51 Ondansetron Inj 4 Mg/2 Ml Vial IV PUSH 4 mg Q4H PRN Administration Nausea Ropinirole HCl 0.5 mg 01/12/25 01:00 01/12/25 21:49 Ropinirole Hcl 0.5 Mg Tablet PO 0.5 mg HS RON Administration Radiology Results: ITS Impressions Chest X-Ray 01/11/25 18:24 IMPRESSION: Mild pulmonary vascular congestion, without focal infiltrate or effusion. Hip/Pelvis X-Ray 01/11/25 18:25 IMPRESSION: Acute minimally displaced fracture of the right femoral neck, as detailed above. Knee X-Ray 01/11/25 18:27 IMPRESSION: Degenerative disease without acute fracture. Labs Labs: Laboratory Results - last 24 hr 01/13/25 06:41 Hep Bs Antigen Negative Quality VTE Prophylaxis VTE prophylaxis: mechanical ordered (SCDs)
--- NOTE | 2025-01-13 10:32 | P.CONNP_ITS ---
Assessment and Plan Assessment and plan (1) End stage renal disease: Code(s): N18.6 - End stage renal disease Status: Chronic Assessment and Plan: * HD tomorrow * continue //Monday outpatient dialysis schedule while hospitalized * follow electrolytes, volume status, and clearance * primary canal structure operator = Dr. Glendy Merino * outpatient dialysis unit = [facility] (2) Femoral neck fracture: Qualifiers: Encounter type: initial encounter Fracture type: closed Laterality: r ight Qualified Code(s): S72.001A - Fracture of unspecified part of neck of right femur, initial encounter for closed fracture Code(s): S72.009A - Fracture of unspecified part of neck of unspecified femur, initial encounter for closed fracture Status: Acute Assessment and Plan: * as noted by admission imaging * Orthopedic recommendations noted * plan surgical intervention tomorrow (01/14) (3) Chronic hypoxic respiratory failure, on home oxygen therapy: Code(s): J96.11 - Chronic respiratory failure with hypoxia; Z99.81 - Dependence on supplemental oxygen Status: Chronic Assessment and Plan: * on home oxygen - usually 4 - 6L at baseline * secondary to COPD * complicated by ongoing smoking (4) Anemia: Code(s): D64.9 - Anemia, unspecified Status: Acute Assessment and Plan: * due to ESRD * Epogen with HD * follow trend of H/H (5) Bipolar disorder: Qualifiers: Active/Remission status: remission status unspecified Qualified Code(s): F31.9 - Bipolar disorder, unspecified Code(s): F31.9 - Bipolar disorder, unspecified Status: Chronic Assessment and Plan: * known history * continue home medications (6) Chronic pain: Code(s): G89.29 - Other chronic pain Status: Chronic Assessment and Plan: * on methadone * may have some tolerance to pain medication given this history * continue supportive therapy I will continue to follow the patient with you while she remains hospitalized and make further recommendations as deemed necessary. Thank you for allowing me to participate in the care of this patient. L History of Present Illness Reason for Consult Consult date: 01/13/25 Reason for consult: end stage renal disease Chief Complaint Chief complaint: Femoral neck fracture History of Present Illness Narrative: A great deal of the history that I have obtained is from review of the electronic medical record as well as discussion with the physician/nurses involved in the patient's care as the patient is not very forthcoming with information during my interview with her. The patient is a 64-year-old female with a past medical history as outlined below who presented to [facility] due to right hip pain. Apparently, the patient was walking in her kitchen when her foot got tangled in a rug resulting in a fall on her right side. She apparently had immediate right hip pain after this fall but there was no reported head trauma, loss of consciousness, or headache prior to or after the fall. She has chronic pain at baseline but following this fall, her pain was acutely worse and she continued to take her methadone and Dilaudid that she is currently on at baseline. Given the severity of her right hip pain with minimal improvement with her home pain medications, she came to the ER for further assessment. Workup and evaluation emergency room demonstrated the patient to be hemodynamically stable but in significant pain/discomfort. Routine blood test demonstrated labs consistent with her known history of end-stage renal disease with otherwise normal white blood cell count and relatively stable hemoglobin and hematocrit. She reported some mild shortness of breath but her oxygen requirements were at baseline which is anywhere from 4-6 L of supplemental oxygen by nasal cannula. Viral testing for influenza, RSV, and COVID were negative and her chest x-ray did not demonstrate any new but infiltrates or pneumonia but did show some mild pulmonary vascular congestion. Further imaging of her right hip demonstrated a right hip fracture. She was subsequently admitted to the hospital for further evaluation and therapy and orthopedic consultation for likely surgical intervention. Since her admission, her pain control seems to be doing somewhat better and she has already been seen by Orthopedic surgery with the tentative plan for operative intervention schedule tomorrow afternoon. Renal consultation was requested due to her end-stage renal disease. The patient normally dialyzes on a Monday, , Monday dialysis schedule at [facility] under the care of Dr. Merino. She did receive her last dialysis treatment on Monday without any apparent issues or problems as far as I am aware. From a dialysis perspective, she usually does fairly well aside from the fact that given her severe anxiety she sometimes is not complete her 3 hour dialysis treatments and usually signs off her treatments about 30 minutes early fairly routinely. However, she usually does not have any critical electrolyte abnormalities or any significant fluid gains in between her dialysis treatments. She is due for dialysis tomorrow. Currently, at the time my evaluation, she does not appear to be in any acute distress. Review of Systems 2 Review of Systems: As per HPI. [facility] Past Medical History Medical History Tobacco abuse disorder Bipolar disorder Osteoporosis Chronic hypoxic respiratory failure, on home oxygen therapy End-stage renal disease on hemodialysis Monday on dialysis since 2015 History of vertebral fracture Anxiety COPD (chronic obstructive pulmonary disease) Surgical History Surgical History Status post creation of arteriovenous fistula Bilateral upper arms the left being nonfunctional. Right still has palpable thrill and bruit patient receives dialysis through tunneled catheter in her right chest for logistic Dr. Merino History of appendectomy Hx of cholecystectomy Status post open reduction with internal fixation of fracture Left hip fracture History of colectomy With colostomy Family History Family History Mother Diabetes mellitus Sibling Patient's sister is in good health Patient's brother is in good health Father Family history of lung cancer Social History Social History (Updated 01/11/25 @ 22:17 by Sierra Sanchez DO) Social History: Patient lives with her mother. She has 3 children. She has smoked up to 2 packs of cigarettes per day since she was 16 years old but is down to 5 cigarettes a day. She did not answer questions above drug or alcohol use. She is on chronic pain medications with methadone and Dilaudid. Code status: Full code Surrogate decision maker: Yobany (son) Smoking status: Current every day smoker Tobacco type: cigarettes Alcohol intake: never Substance use type: does not use Do You Feel Safe in your Home?: Yes Lack of Transportation: No Lack of Food: Never True Current Housing: I Have Housing Concerned About Future Housing: No Difficulty Paying Gas/Electric Bills: Decline to Answer Difficulty Paying for Meds: Decline to Answer Currently Unemployed: Decline to Answer Education: Grade School Difficulty w/ Childcare or Family Care: No Spiritual care concerns: No Meds Home Medications and Allergies Home Medications ?Medication ?Instructions ?Recorded ?Confirmed ?Type albuterol sulfate 90 mcg/actuation 2 puff inhalation Q3-4H PRN 01/11/25 01/11/25 History aerosol inhaler shortness of breath or wheezing clonazepam 0.5 mg tablet 0.5 mg PO QID 01/11/25 01/11/25 History duloxetine 20 mg capsule,delayed 20 mg PO .dialy 01/11/25 01/11/25 History release hydromorphone 4 mg tablet 4 mg PO Q6H 01/11/25 01/11/25 History hydroxyzine HCl 25 mg tablet 25 mg PO Q4H 01/11/25 01/11/25 History ipratropium bromide 21 mcg (0.03 2 spray intranasal DAILY 01/11/25 01/11/25 History %) nasal spray ropinirole 0.5 mg tablet 0.5 mg PO HS 01/11/25 01/11/25 History apixaban 2.5 mg tablet (Eliquis) 2.5 mg PO BID 28 days #56 tabs 01/17/25 Rx hydromorphone 4 mg tablet 4 mg PO Q6H PRN Pain Rated 7-10 #1 01/18/25 Rx tablet lidocaine 5 % topical patch 1 patch transdermal DAILY #15 ea 01/18/25 Rx (Lidoderm) naloxone 4 mg/actuation nasal 1 spray intranasal Q2M PRN opioid 01/18/25 Rx spray (Narcan) overdose #2 ea Allergies Allergy/AdvReac Type Severity Reaction Status Date / Time No Known Allergies Allergy Verified 01/14/25 16:00 Vital Signs Vital Signs Temp Pulse Resp BP Pulse Ox O2 Del Method O2 Flow Rate 01/13/25 09:08 85 20 01/13/25 08:53 90 20 01/13/25 08:53 90 20 96 Nasal Cannula 4 01/13/25 06:00 97.2 F L 72 16 111/53 L 92 01/12/25 22:29 94 Nasal Cannula 4 01/12/25 22:28 100 20 01/12/25 22:00 97.7 F 72 16 122/89 100 01/12/25 20:00 94 Nasal Cannula 4 Exam 2 Narrative: GENERAL APPEARANCE: chornically ill appearing female (looks older than stated age) sitting up in bed in no acute distress HEENT: normocephalic, atraumatic, pallor to conjunctiva and sclera, nares patient NECK: no lymphadenopathy, thyromegaly, or JVD MOUTH: normal lips, teeth, and gums CARDIOVASCULAR: RRR, normal S1 and S2, no rub RESPIRATORY: decreased at bases ABDOMEN: soft, nontender, nondistended, positive bowel sounds present; + colostomy EXTREMITIES: no evidence of cyanosis, clubbing, trace edema NEUROLOGICAL: alert and oriented x 3; CN II - XII intact bilaterally; no focal deficits noted Results Lab Results 01/18/25 07:13 01/18/25 07:13 Lab results: Most recent lab results Calcium 8.4 mg/dL (8.4-10.2) 01/13/25 10:52 Phosphorus 5.5 mg/dL (2.5-4.5) H 01/13/25 10:52 Magnesium 1.8 mg/dL (1.6-2.3) 01/13/25 10:52
[2025-01-13 11:24] LABS: Basophils Percent Auto 0.4 % (0.2-1.2); Eosinophils Absolute Auto 0.3 K/mm3 (0-0.3); Eosinophils Percent Auto 4.4 % (0-4.4); Hematocrit 30.2 % (37.0-47.0); Hemoglobin 9.2 g/dL (12.0-15.0); Immature Granulocyte Absolute 0.04 K/mm3 (0.00-0.031); Immature Granulocyte Percent A 0.5 % (0-0.5); Lymphocytes Absolute Auto 1.21 K/mm3 (0.9-3.2); Lymphocytes Percent Auto 16.5 % (18.3-44.2); Mean Corpuscular HGB Conc 30.5 g/dl (32-36); Mean Corpuscular Hemoglobin 34.2 pg (26-34); Mean Corpuscular Volume 112.3 fl (80-100); Mean Platelet Volume 11.7 fl (7.4-10.4); Monocytes Absolute Auto 0.6 K/mm3 (0.1-0.6); Monocytes Percent Auto 8.2 % (2.6-8.5); Neutrophils Absolute Auto 5.1 K/mm3 (1.3-6.7); Platelet Count Result 152 k/mm3 (150-375); Red Blood Count 2.69 M/mm3 (4.2-5.4); Red Cell Distribution Width 15.9 % (11.5-14.5); White Blood Count 7.3 K/mm3 (4.5-10.0)
[2025-01-13 12:15] LABS: Alanine Aminotransferase 90 U/L (6-35); Albumin Level 3.2 g/dL (3.5-5.1); Alkaline Phosphatase 67 U/L (38-126); Anion Gap 7 mmol/L (4-12); Aspartate Amino Transferase 46 U/L (14-36); Bilirubin,Total 0.7 mg/dL (0.2-1.3); Blood Urea Nitrogen 41 mg/dL (7-17); Calcium 8.4 mg/dL (8.4-10.2); Carbon Dioxide 32 mmol/L (22-30); Chloride 96 mmol/L (98-107); Estimated CRCL calculation 8 ml/min; Estimated Glomerular Filt Rate 9; Glucose 74 mg/dL (65-110); Magnesium 1.8 mg/dL (1.6-2.3); Phosphorus 5.5 mg/dL (2.5-4.5); Potassium 4.3 mmol/L (3.4-5.0); Sodium 135 mmol/L (137-145)
[2025-01-13 12:33] LABS: Hypochromasia 1+; Macrocytosis 1+ (NORMAL); Ovalocytes 1+; Platelet Estimate Adequate (Adequate)
[2025-01-13 12:34] LABS: Schistocytes None Seen
[2025-01-13] MEDS: HYDROmorphone HCL (*CRX) 4 MG TABLET PO (13:22)
[2025-01-13 14:00] VITALS: BP 112/59; PULSE 97; RESP 18; TEMP 36.3; O2SAT 100
[2025-01-13 14:11] LABS: Hepatitis B Surface Anti Res Indeterminate
[2025-01-13] MEDS: HYDROmorphone HCL INJ (*CRX) 1 MG/ML SYR IV PUSH (14:34)
[2025-01-13] MEDS: diphenhydrAMINE HCl CAP 25 MG CAPSULE PO (15:58)
[2025-01-13 20:00] VITALS: PULSE 97; RESP 18; O2SAT 100
[2025-01-13] MEDS: rOPINIRole HCL 0.5 MG TABLET PO (21:37)
[2025-01-13 22:00] VITALS: BP 124/60; PULSE 107; RESP 19; TEMP 36.4; O2SAT 100
[2025-01-14] VITALS (33 sets, daily range): BP systolic 79–135; BP diastolic 42–89; PULSE 73–100; RESP 10–18; TEMP 35.7–37; O2SAT 96–100; BMI 16.6
[2025-01-14] MEDS: HYDROmorphone HCL (*CRX) 4 MG TABLET PO ×2 (00:15→21:01)
[2025-01-14] MEDS: diphenhydrAMINE HCl CAP 25 MG CAPSULE PO ×2 (00:16→08:34)
[2025-01-14] MEDS: LORazepam INJ (*CRX) 2 MG/ML VIAL 1 MG IV PUSH (00:16)
[2025-01-14] MEDS: hydrOXYzine HCL 25 MG TABLET PO ×5 (00:16→21:01)
--- NOTE | 2025-01-14 07:22 | WPDHPUPDATE1 ---
History and Physical Update Update Date/Time: 01/14/25 07:22 History and Physical has been reviewed, including an updated exam of the patient. There are NO changes in the patient's condition. Risks, benefits, and alternatives have been discussed and questions answered. Patient agrees to proceed with procedure.
[2025-01-14] MEDS: methADONE HCL (*CRX) 5 MG TABLET PO (08:33)
[2025-01-14] MEDS: clonazePAM (*CRX) 0.5 MG TABLET PO ×3 (08:34→21:01)
[2025-01-14] MEDS: MORPHINE SULFATE (*CRX) 2 MG/ML INJ IV PUSH (10:24)
--- NOTE | 2025-01-14 12:27 | P.PNNP_ITS ---
Progress Note: A&P Assessment and Plan (1) End stage renal disease: Code(s): N18.6 - End stage renal disease Status: Chronic Assessment and Plan: * HD today * continue //Monday outpatient dialysis schedule while hospitalized * follow electrolytes, volume status, and clearance * primary housing court judge = Dr. Glendy Merino * outpatient dialysis unit = [facility] (2) Femoral neck fracture: Qualifiers: Encounter type: initial encounter Fracture type: closed Laterality: r ight Qualified Code(s): S72.001A - Fracture of unspecified part of neck of right femur, initial encounter for closed fracture Code(s): S72.009A - Fracture of unspecified part of neck of unspecified femur, initial encounter for closed fracture Status: Acute Assessment and Plan: * as noted by admission imaging * Orthopedic recommendations noted * plan surgical intervention later today (01/14) (3) Chronic hypoxic respiratory failure, on home oxygen therapy: Code(s): J96.11 - Chronic respiratory failure with hypoxia; Z99.81 - Dependence on supplemental oxygen Status: Chronic Assessment and Plan: * on home oxygen - usually 4 - 6L at baseline * secondary to COPD * complicated by ongoing smoking (4) Anemia: Code(s): D64.9 - Anemia, unspecified Status: Acute Assessment and Plan: * due to ESRD * Epogen with HD * follow trend of H/H (5) Bipolar disorder: Qualifiers: Active/Remission status: remission status unspecified Qualified Code(s): F31.9 - Bipolar disorder, unspecified Code(s): F31.9 - Bipolar disorder, unspecified Status: Chronic Assessment and Plan: * known history * continue home medications (6) Chronic pain: Code(s): G89.29 - Other chronic pain Status: Chronic Assessment and Plan: * on methadone * may have some tolerance to pain medication given this history * continue supportive therapy Will continue to follow. L Subjective Date/time seen: 01/14/25 12:27 Interval history: Follow-up for end stage renal disease on hemodialysis. Tolerating dialysis treatment at the time of my visit (seen on HD at 12:15PM); no issues overnight or earlier this morning; pain control seems adequate; tentatively on schedule for operative intervention regarding her right hip fracture this afternoon. Exam 2 Narrative: General: thin and frail female (who appears older than stated age) in NAD Heart: normal S1 and S2; no rub Lungs: coarse breath sounds Abdomen: soft, nontender, nondistended, positive bowel sounds; + colostomy Extremities: no cyanosis or clubbing; no edema Skin: warm and dry Objective Data Vital Signs Vital Signs: Vital Signs Temp Pulse Resp BP Pulse Ox O2 Del Method O2 Flow Rate 01/14/25 06:00 98.1 F 86 14 111/53 L 96 01/13/25 22:00 97.5 F L 107 H 19 124/60 100 01/13/25 20:00 97 18 100 Nasal Cannula 4.5 Intake/Output Intake/Output: Intake & Output 01/11/25 01/12/25 01/13/25 01/14/25 23:59 23:59 23:59 23:59 Intake Total 400 870 250 Output Total 225 27 50 Balance 175 843 200 Meds/Results Medications: Active Medications Generic Name Dose Route Start Last Admin Trade Name Freq PRN Reason Stop Dose Admin Albuterol/Ipratropium 3 ml 01/11/25 20:51 01/14/25 13:59 Ipratropium 0.5 Mg/Albuterol Sulfate 2.5 Mg Ampul.Neb 3 Ml INHALATION 3 ml Q6HRT PRN Administration Shortness Of Breath Clonazepam 0.5 mg 01/12/25 09:00 01/14/25 13:36 Clonazepam (*Crx) 0.5 Mg Tablet PO 0.5 mg QID RON Administration Diphenhydramine HCl 25 mg 01/13/25 15:00 01/14/25 08:34 Diphenhydramine Hcl Cap 25 Mg Capsule PO 25 mg Q6H PRN Administration Itching Duloxetine HCl 20 mg 01/12/25 01:00 Duloxetine Hcl 20 Mg Capsule.Dr [employer] sofia [facility] Epoetin Casey-epbx 10,000 units 01/14/25 19:00 Epoetin Casey-Epbx 10,000 Units/Ml Vial IV PUSH 01/14/25 19:01 ONCE ONE Hydromorphone HCl 4 mg 01/11/25 22:08 01/14/25 00:15 Hydromorphone Hcl (*Crx) 4 Mg Tablet PO 4 mg Q4H PRN Administration Pain Rated 7-10 Hydromorphone HCl 1 mg 01/11/25 22:08 01/14/25 13:36 Hydromorphone Hcl Inj (*Crx) 1 Mg/Ml Syr IV PUSH 1 mg Q2H PRN Administration Breakthrough Pain Hydroxyzine HCl 25 mg 01/12/25 01:00 01/14/25 13:36 Hydroxyzine Hcl 25 Mg Tablet PO 25 mg Q4H RON Administration Albumin Human 50 mls @ 999 mls/hr 01/14/25 06:42 Albutein IVPB 02/13/25 06:41 Q10M PRN HYPOTENSION Ipratropium [place] 2 spray 01/12/25 09:00 01/14/25 09:53 Ipratropium Nasal [place] 0.03% 15 Ml Bottle NASAL Not Given DAILY RON Methadone HCl 5 mg 01/12/25 09:00 01/14/25 08:33 Methadone Hcl (*Crx) 5 Mg Tablet PO 5 mg DAILY RON Administration Morphine Sulfate 2 mg 01/11/25 19:08 01/14/25 10:24 Morphine Sulfate (*Crx) 2 Mg/Ml Inj IV PUSH 2 mg Q2H PRN Administration Pain Rated 7-10 Naloxone HCl 0.1 mg 01/11/25 22:27 Naloxone Hcl 0.4 Mg/Ml Vial IV PUSH Q5MIN PRN Opiate overdose Nicotine 1 patch 01/12/25 16:10 01/13/25 10:11 Nicotine (*Pbkc) 21 Mg Patch TRANSDERM 1 patch DAILY RON Administration Nicotine Polacrilex 4 mg 01/13/25 19:53 Nicotine (*Pbkc) 4 Mg Gum PO Q2H PRN Nicotine Cravings Ondansetron HCl 4 mg 01/11/25 19:08 01/11/25 20:51 Ondansetron Inj 4 Mg/2 Ml Vial IV PUSH 4 mg Q4H PRN Administration Nausea Ropinirole HCl 0.5 mg 01/12/25 01:00 01/13/25 21:37 Ropinirole Hcl 0.5 Mg Tablet PO 0.5 mg HS RON Administration Radiology Results: ITS Impressions Chest X-Ray 01/11/25 18:24 IMPRESSION: Mild pulmonary vascular congestion, without focal infiltrate or effusion. Hip/Pelvis X-Ray 01/11/25 18:25 IMPRESSION: Acute minimally displaced fracture of the right femoral neck, as detailed above. Knee X-Ray 01/11/25 18:27 IMPRESSION: Degenerative disease without acute fracture. Labs Labs: Laboratory Tests 01/13/25 10:52 01/13/25 10:52
[2025-01-14] MEDS: HYDROmorphone HCL INJ (*CRX) 1 MG/ML SYR IV PUSH (13:36)
[2025-01-14] MEDS: IPRATROPIUM 0.5 MG/ALBUTEROL SULFATE 2.5 MG AMPUL.NEB 3 ML INHALATION (13:59)
--- NOTE | 2025-01-14 14:39 | PM.IMPN ---
Progress Note: A&P Assessment and Plan (1) Femoral neck fracture: Qualifiers: Encounter type: initial encounter Fracture type: closed Laterality: right Qualified Code(s): S72.001A - Fracture of unspecified part of neck of right femur, initial encounter for closed fracture Code(s): S72.009A - Fracture of unspecified part of neck of unspecified femur, initial encounter for closed fracture Status: Acute (2) End-stage renal disease on hemodialysis: Code(s): N18.6 - End stage renal disease; Z99.2 - Dependence on renal dialysis Status: Acute (3) Chronic hypoxic respiratory failure, on home oxygen therapy: Code(s): J96.11 - Chronic respiratory failure with hypoxia; Z99.81 - Dependence on supplemental oxygen Status: Chronic (4) Protein-calorie malnutrition, severe: Code(s): E43 - Unspecified severe protein-calorie malnutrition Status: Acute (5) Osteoporosis: Qualifiers: Osteoporosis type: unspecified Presence of current pathological fracture: with current pathological fracture Encounter type: initial encounter Qualified Code(s): M80.00XA - Age-related osteoporosis with current pathological fracture, unspecified site, initial encounter for fracture Code(s): M81.0 - Age-related osteoporosis without current pathological fracture Status: Acute (6) Bipolar disorder: Qualifiers: Active/Remission status: remission status unspecified Qualified Code(s): F31.9 - Bipolar disorder, unspecified Code(s): F31.9 - Bipolar disorder, unspecified Status: Chronic (7) Tobacco abuse disorder: Code(s): Z72.0 - Tobacco use Status: Acute Plan Patient has fall with right hip fracture. Surgery today- 01/14 around 1500 P.r.n. pain medications Patient does have a significant history of chronic pain. Resumed patient's home methadone. Will continue patient's home p.o. Dilaudid as needed for pain 7-10 in the at IV Dilaudid as needed for breakthrough pain. # ESRD- she did hemodialysis prior to her fall nephrology consult to help with dialysis -continue home oxygen p.r.n. DuoNebs. continue patient's home inhalers. Smoking cessation has been encouraged. Patient is not interested in quitting at this time resumed patient's home psychiatric medications including anxiety medications. added bendryl prn for itchyness Subjective Date/time seen: 01/14/25 14:39 Interval history: 64-year-old female with a past medical history of end-stage renal disease on hemodialysis, COPD on chronic home O2, colostomy and prior left hip fracture with surgical repair who presented to the ER after tripping in her kitchen and falling resulting in right hip pain. Ortho consulted. 01/13- surgery tomorrow at 1500. she is very anxious as a base line. reports too much going on . eating and drinking ok. requiring pain meds pretty much around the clock. 01/14 surgery today npo Review of Systems Constitutional: Constitutional: Denies chills Cardiovascular: Cardiovascular: Denies chest pain Respiratory: Respiratory: Denies chest congestion Gastrointestinal: Gastrointestinal: Denies abdominal pain Musculoskeletal: Comments: hip pain Psychiatric: Psychiatric: Reports anxiety Exam Narrative: Weight 44 kg BMI 16.7 Const: Other: chronically ill-appearing HENMT: Other: Head is normocephalic atraumatic, nasal cannula in place, mucous membranes tacky Eyes: Other: Pupils are equal and reactive, positive conjunctival pallor, no scleral icterus Neck: Other: No JVD Resp: Effort & Inspection: normal respiratory effort Cardio: Rate: regular rate Rhythm: regular rhythm Other: over right upper extremity AV fistula, decreased pulse in the left and and lack of thrill over the left AV fistula GI: GI Palp: Yes Soft to palpation Other: Concave, soft, nontender colostomy in place : Other: Pure wick catheter in place Back/Spine/Pelvis: Other: Marked thoracic kyphosis Skin: General skin exam: normal color Other: Generalized pallor, non jaundice Extrem: Other: A pink, cyanosis or edema, see comments but AV fistula the under cardiac exam, sensation intact of bilateral lower extremities, patient is sitting up on the bedside and shaking her left leg, she does not allow for further evaluation of her right extremity Psych: Other: flat affect, avoids eye contact Objective Data Vital Signs Vital Signs: Vital Signs - 24 hr 01/13/25 20:00 01/13/25 22:00 01/14/25 06:00 Temperature 97.5 F L 98.1 F Pulse Rate 97 107 H 86 Respiratory Rate 18 19 14 Blood Pressure 124/60 111/53 L Pulse Oximetry 100 100 96 Oxygen Delivery Nasal Cannula Oxygen Flow Rate 4.5 01/14/25 14:00 01/14/25 14:00 01/14/25 14:00 Temperature 96.6 F L Pulse Rate 93 93 Respiratory Rate 16 18 Blood Pressure 117/56 L Pulse Oximetry 100 100 Oxygen Delivery Nasal Cannula Oxygen Flow Rate 4 Intake/Output Intake/Output: Intake & Output 01/11/25 01/12/25 01/13/25 01/14/25 23:59 23:59 23:59 23:59 Intake Total 400 870 250 Output Total 225 27 50 Balance 175 843 200 Meds/Results Medications: Active Medications Generic Name Dose Route Start Last Admin Trade Name Freq PRN Reason Stop Dose Admin Albuterol/Ipratropium 3 ml 01/11/25 20:51 01/14/25 13:59 Ipratropium 0.5 Mg/Albuterol Sulfate 2.5 Mg Ampul.Neb 3 Ml INHALATION 3 ml Q6HRT PRN Administration Shortness Of Breath Clonazepam 0.5 mg 01/12/25 09:00 01/14/25 13:36 Clonazepam (*Crx) 0.5 Mg Tablet PO 0.5 mg QID RON Administration Diphenhydramine HCl 25 mg 01/13/25 15:00 01/14/25 08:34 Diphenhydramine Hcl Cap 25 Mg Capsule PO 25 mg Q6H PRN Administration Itching Duloxetine HCl 20 mg 01/12/25 01:00 Duloxetine Hcl [address]Dr [employer] so[employer] [facility] Epoetin Casey-epbx 10,000 units 01/14/25 19:00 Epoetin Casey-Epbx 10,000 Units/Ml Vial IV PUSH 01/14/25 19:01 ONCE ONE Hydromorphone HCl 4 mg 01/11/25 22:08 01/14/25 00:15 Hydromorphone Hcl (*Crx) 4 Mg Tablet PO 4 mg Q4H PRN Administration Pain Rated 7-10 Hydromorphone HCl 1 mg 01/11/25 22:08 01/14/25 13:36 Hydromorphone Hcl Inj (*Crx) 1 Mg/Ml Syr IV PUSH 1 mg Q2H PRN Administration Breakthrough Pain Hydroxyzine HCl 25 mg 01/12/25 01:00 01/14/25 13:36 Hydroxyzine Hcl 25 Mg Tablet PO 25 mg Q4H [facility] Administration Albumin Human 50 mls @ 999 mls/hr 01/14/25 06:42 Albutein IVPB 02/13/25 06:41 Q10M PRN HYPOTENSION Ipratropium [place] 2 spray 01/12/25 09:00 01/14/25 09:53 Ipratropium Nasal [place] 0.03% 15 Ml Bottle NASAL Not Given DAILY RON Methadone HCl 5 mg 01/12/25 09:00 01/14/25 08:33 Methadone Hcl (*Crx) 5 Mg Tablet PO 5 mg DAILY RON Administration Morphine Sulfate 2 mg 01/11/25 19:08 01/14/25 10:24 Morphine Sulfate (*Crx) 2 Mg/Ml Inj IV PUSH 2 mg Q2H PRN Administration Pain Rated 7-10 Naloxone HCl 0.1 mg 01/11/25 22:27 Naloxone Hcl 0.4 Mg/Ml Vial IV PUSH Q5MIN PRN Opiate overdose Nicotine 1 patch 01/12/25 16:10 01/13/25 10:11 Nicotine (*Pbkc) 21 Mg Patch TRANSDERM 1 patch DAILY RON Administration Nicotine Polacrilex 4 mg 01/13/25 19:53 Nicotine (*Pbkc) 4 Mg Gum PO Q2H PRN Nicotine Cravings Ondansetron HCl 4 mg 01/11/25 19:08 01/11/25 20:51 Ondansetron Inj 4 Mg/2 Ml Vial IV PUSH 4 mg Q4H PRN Administration Nausea Ropinirole HCl 0.5 mg 01/12/25 01:00 01/13/25 21:37 Ropinirole Hcl 0.5 Mg Tablet PO 0.5 mg HS RON Administration Radiology Results: ITS Impressions Chest X-Ray 01/11/25 18:24 IMPRESSION: Mild pulmonary vascular congestion, without focal infiltrate or effusion. Hip/Pelvis X-Ray 01/11/25 18:25 IMPRESSION: Acute minimally displaced fracture of the right femoral neck, as detailed above. Knee X-Ray 01/11/25 18:27 IMPRESSION: Degenerative disease without acute fracture. Quality VTE Prophylaxis VTE prophylaxis: mechanical ordered (SCDs)
--- NOTE | 2025-01-14 15:15 | SUR.PREOP ---
1505- Call to Dr. Mares patient's BP 70's over 40's with HR in 80's. Patient given multiple medications after dialysis, see MAR. Patient being given NS via peripheral IV. Orders from Dr. Mares for NS bolus of 100mL's. 1515- BP improved to 99/57 to 93/[address] Mares of improvement and IV infiltration. Call to Vascular sample grinder for new access- currently in with patient will be 30 to 45 minute delay for IV attempt.
[2025-01-14] MEDS: TRANEXAMIC ACID 1,000MG/ISO100 1,000 MG/100 ML BAG 200 MG IVPB (15:43)
[2025-01-14] MEDS: SODIUM CHLORIDE 0.9% IV 250 ML 999 ML IV CONT (15:55)
--- NOTE | 2025-01-14 15:57 | ECG_ITS ---
Test Date: 2025-01-14 16:28:59 Measurements Intervals [place] Rate: 82 P: 34 MI: 151 QRS: 61 QRSD: 86 T: 43 QT: 349 QTc: 408 Interpretive Statements SINUS RHYTHM CONSIDER ANTERIOR INFARCT, AGE INDETERMINATE BASELINE ARTIFACT- I, II, AVR ABNORMAL ECG No previous ECG available for comparison Electronically Signed On 01-14-2025 17:41:31 AGENCY LEGAL COUNSEL by Maciel Ash D.O.
--- NOTE | 2025-01-14 15:57 | WPDANESEPPF ---
Anes - Initial Pre Proc Eval Procedure: Operation Date: 01/14/25 15:00 Proposed Procedures p Right Hip Pinning - Wilbur Jarquin MD Date/Time: 01/14/25 15:57 Surgeon: Sukhjinder Bee MD Pre Op Diagnosis: Femoral neck fracture Patient Data Age: 64 Gender: F Height: 1.63 m Weight: 44 kg Last Vital Signs Temp 97.6 F 01/14/25 14:51 Pulse 84 01/14/25 15:43 Resp 16 01/14/25 14:51 BP 92/51 L 01/14/25 15:43 Pulse Ox 100 01/14/25 14:51 O2 Del Method Nasal Cannula 01/14/25 14:51 O2 Flow Rate 4 01/14/25 14:51 Allergies Allergy/AdvReac Type Severity Reaction Status Date / Time No Known Allergies Allergy Verified 01/14/25 16:00 Home Medications ?Medication ?Instructions ?Recorded ?Confirmed ?Type albuterol sulfate 90 mcg/actuation 2 puff inhalation Q3-4H PRN 01/11/25 01/11/25 History aerosol inhaler shortness of breath or wheezing clonazepam 0.5 mg tablet 0.5 mg PO QID 01/11/25 01/11/25 History duloxetine 20 mg capsule,delayed 20 mg PO .dialy 01/11/25 01/11/25 History release hydromorphone 4 mg tablet 4 mg PO Q6H 01/11/25 01/11/25 History hydroxyzine HCl 25 mg tablet 25 mg PO Q4H 01/11/25 01/11/25 History ipratropium bromide 21 mcg (0.03 2 spray intranasal DAILY 01/11/25 01/11/25 History %) nasal spray methadone 10 mg tablet 5 mg PO DAILY 01/11/25 01/11/25 History ropinirole 0.5 mg tablet 0.5 mg PO HS 01/11/25 01/11/25 History Patient hx anesthesia problems: none Family hx anesthesia problems: none Results Review: All pre-operative results and documents have been reviewed as part of the pre-operative evaluation. [facility] Past Medical History Medical History Tobacco abuse disorder Bipolar disorder Osteoporosis Chronic hypoxic respiratory failure, on home oxygen therapy End-stage renal disease on hemodialysis Monday on dialysis since 2016 History of vertebral fracture Anxiety COPD (chronic obstructive pulmonary disease) Surgical History Surgical History Status post creation of arteriovenous fistula Bilateral upper arms the left being nonfunctional. Right still has palpable thrill and bruit patient receives dialysis through tunneled catheter in her right chest for logistic Dr. Merino History of appendectomy Hx of cholecystectomy Status post open reduction with internal fixation of fracture Left hip fracture History of colectomy With colostomy Family History Family History Mother Diabetes mellitus Sibling Patient's sister is in good health Patient's brother is in good health Father Family history of lung cancer Social History Social History (Updated 01/11/25 @ 22:17 by Sierra Sanchez DO) Social History: Patient lives with her mother. She has 3 children. She has smoked up to 2 packs of cigarettes per day since she was 16 years old but is down to 5 cigarettes a day. She did not answer questions above drug or alcohol use. She is on chronic pain medications with methadone and Dilaudid. Code status: Full code Surrogate decision maker: Yobany (son) Smoking status: Current every day smoker Tobacco type: cigarettes Alcohol intake: never Substance use type: does not use Do You Feel Safe in your Home?: Yes Lack of Transportation: No Lack of Food: Never True Current Housing: I Have Housing Concerned About Future Housing: No Difficulty Paying Gas/Electric Bills: Decline to Answer Difficulty Paying for Meds: Decline to Answer Currently Unemployed: Decline to Answer Education: Grade School Difficulty w/ Childcare or Family Care: No Spiritual care concerns: No Anes - Eval Final PreProcedure Day of Procedure 01/14/25 15:57 Patient weight: cachectic Lungs: normal air movement Airway: Mallampati scale class II Neurological: alert and oriented Last oral intake: >/= 8 hours ASA classification: IV Emergent: no Anesthetic plan: proceed Anesthesia type and monitoring: general LMA and standard monitoring Results Review: All pre-operative results and documents have been reviewed as part of the pre-operative evaluation. Chronically ill 64 yo female, ESRD etiology unclear, completed earlier today, chr resp failure on 4 L NC, cont to smoke, since 16 yo, osteoporosis, bipolar disorder/anxiety. Pt had a mechanical fall now for hip pinning. New PIV placed in preop area by myself due to infiltrated IV. No EKG prev ordered, pending. Informed Consent: The patient's anesthetic plan and its attendant risks and benefits were discussed with the patient/family/POA. Questions were solicited and answers provided to the satisfaction of the patient/family/POA.
[2025-01-14] MEDS: ceFAZolin 2 GM/D5W 50 ML 2 GM/50 ML BAG IVPB ×2 (16:35→21:02)
--- NOTE | 2025-01-14 17:33 | W.PM.PROC2 ---
Procedure Note - Detailed Date of Procedure 01/14/25 Pre-op Diagnosis RIGHT Femoral neck fracture Post-op Diagnosis Same Procedure Performed PERCUTANEOUS PINNING RIGHT FEMORAL NECK FRACTURE Surgeon Wilbur Jarquin MD Anesthesia General Description of Procedure THE PATIENT WAS TAKEN TO THE OPERATING ROOM AND PLACED UNDER GENERAL ANESTHESIA. THE PATIENT WAS PLACED ON A FRACTURE TABLE. THE RIGHT LOWER EXTREMITY WAS PREPPED AND DRAPED IN THE STERILE FASHION FROM THE KNEE TO THE ILIAC CREST. THE INCISION WAS MADE ON THE LATERAL HIP JUST DISTAL TO THE GREATER TROCHANTER DOWN TO THE BONE. BLEEDERS WERE CAUTERIZED. 3 GUIDE PINS WERE PLACED THROUGH THE FEMORAL NECK AND PASSED THE FRACTURE SITE AND IN TO THE SUBCHONDRAL BONE OF THE FEMORAL HEAD. THREE 7.0 ARTHREX CANNULATED SCREWS WERE PLACED OVER THE GUIDE PINS AND THESE WERE SHOWN TO BE IN GOOD POSITION PER FLUOROSCOPY ON BOTH THE AP AND LATERAL VIEWS. ALL SCREWS HAD EXCELLENT BITES. THE WOUND WAS WASHED WELL. THE DEEP FASCIAL LAYER WAS APPROXIMATED WITH #1 VICRYL SUTURE, THE SUBCUTANEOUS LAYER WITH 2-0 VICRYL AND THE SKIN WAS APPROXIMATED WITH RIMMA. A STERILE DRESSING WAS PLACED. THE PATIENT WAS EXTUBATED AND SENT TO RECOVERY ROOM Estimated Blood Loss 20 Drains No Complications No immediate complications Condition Stable Disposition PACU
[2025-01-14] MEDS: SODIUM CHLORIDE 0.9% IV 500 ML 30 ML IV CONT (17:36)
[2025-01-14] MEDS: rOPINIRole HCL 0.5 MG TABLET PO (21:02)
[2025-01-15] VITALS (7 sets, daily range): BP systolic 105–130; BP diastolic 53–90; PULSE 92–104; RESP 16–20; TEMP 36.2–37.1; O2SAT 94–100
[2025-01-15] MEDS: HYDROmorphone HCL INJ (*CRX) 1 MG/ML SYR IV PUSH (00:27)
[2025-01-15] MEDS: hydrOXYzine HCL 25 MG TABLET PO ×6 (00:32→20:56)
[2025-01-15] MEDS: HYDROmorphone HCL (*CRX) 4 MG TABLET PO ×5 (03:39→20:56)
[2025-01-15] MEDS: diazePAM (*CRX) 5 MG TABLET PO ×3 (03:39→23:50)
[2025-01-15] MEDS: ceFAZolin 2 GM/D5W 50 ML 2 GM/50 ML BAG IVPB ×2 (04:00→12:17)
[2025-01-15] MEDS: clonazePAM (*CRX) 0.5 MG TABLET PO ×4 (08:00→20:56)
[2025-01-15] MEDS: methADONE HCL (*CRX) 5 MG TABLET PO (08:01)
[2025-01-15] MEDS: NICOTINE (*PBKC) 21 MG PATCH 1 PATCH TRANSDERM (08:06)
[2025-01-15 10:05] LABS: Basophils Percent Auto 0.5 % (0.2-1.2); Eosinophils Absolute Auto 0.3 K/mm3 (0-0.3); Eosinophils Percent Auto 2.8 % (0-4.4); Hematocrit 33.2 % (37.0-47.0); Hemoglobin 10.3 g/dL (12.0-15.0); Immature Granulocyte Absolute 0.04 K/mm3 (0.00-0.031); Immature Granulocyte Percent A 0.5 % (0-0.5); Lymphocytes Absolute Auto 0.55 K/mm3 (0.9-3.2); Lymphocytes Percent Auto 6.2 % (18.3-44.2); Mean Corpuscular Hemoglobin 35.4 pg (26-34); Mean Corpuscular Volume 114.1 fl (80-100); Mean Platelet Volume 11.2 fl (7.4-10.4); Monocytes Absolute Auto 0.9 K/mm3 (0.1-0.6); Monocytes Percent Auto 10.1 % (2.6-8.5); Neutrophils Absolute Auto 7.1 K/mm3 (1.3-6.7); Neutrophils Percent Auto 79.9 % (45.5-73.1); Platelet Count Result 135 k/mm3 (150-375); Red Blood Count 2.91 M/mm3 (4.2-5.4); Red Cell Distribution Width 15.7 % (11.5-14.5); White Blood Count 8.9 K/mm3 (4.5-10.0)
[2025-01-15 10:19] LABS: Anion Gap 10 mmol/L (4-12); Blood Urea Nitrogen 15 mg/dL (7-17); Calcium 9.6 mg/dL (8.4-10.2); Carbon Dioxide 26 mmol/L (22-30); Chloride 102 mmol/L (98-107); Estimated CRCL calculation 13 ml/min; Estimated Glomerular Filt Rate 13; Glucose 94 mg/dL (65-110); Potassium 4.2 mmol/L (3.4-5.0); Sodium 138 mmol/L (137-145)
--- NOTE | 2025-01-15 10:51 | P.PNIM_ITS ---
Progress Note: A&P Assessment and Plan (1) Femoral neck fracture: Qualifiers: Encounter type: initial encounter Fracture type: closed Laterality: right Qualified Code(s): S72.001A - Fracture of unspecified part of neck of right femur, initial encounter for closed fracture Code(s): S72.009A - Fracture of unspecified part of neck of unspecified femur, initial encounter for closed fracture Status: Acute Assessment and Plan: Patient reports tripping in her kitchen and falling on her right side resulting in right hip pain. Not on anticoagulation. - Hip/pelvis XR: Acute minimally displaced fracture of the right femoral neck, as detailed above. - Knee XR: Degenerative disease without acute fracture. - Continue patients home pain medication: methadone and p.o. Dilaudid as needed. For pain 7-10 IV Dilaudid as needed. Narcan as needed as patient is on several narcotics - Anticoagulation per ortho - PT/OT per ortho Toe touch weight bearing - Ortho consulted s/p percutaneous pinning of right femoral neck fracture on 01/[address] arthur iqbal (2) End-stage renal disease on hemodialysis: Code(s): N18.6 - End stage renal disease; Z99.2 - Dependence on renal dialysis Status: Acute Assessment and Plan: Patient has end-stage renal disease, receives HD on . - Nephrology consulted for HD (3) Chronic hypoxic respiratory failure, on home oxygen therapy: Code(s): J96.11 - Chronic respiratory failure with hypoxia; Z99.81 - Dependence on supplemental oxygen Status: Chronic Assessment and Plan: Chronically on 4-6 L NC secondary to COPD. - Continue home oxygen supplementation - Will provide p.r.n. DuoNebs. - Will continue patient's home inhalers. (4) Protein-calorie malnutrition, severe: Code(s): E43 - Unspecified severe protein-calorie malnutrition Status: Acute Assessment and Plan: Supplement per nutrition recommendations (5) Bipolar disorder: Qualifiers: Active/Remission status: remission status unspecified Qualified Code(s): F31.9 - Bipolar disorder, unspecified Code(s): F31.9 - Bipolar disorder, unspecified Status: Chronic Assessment and Plan: Chronic continue home medications (6) Tobacco abuse disorder: Code(s): Z72.0 - Tobacco use Status: Acute Assessment and Plan: Encouraged smoking cessation Time Spent With Patient Time with patient: 25 - 35 minutes Subjective Date/time seen: 01/15/25 10:51 Interval history: 64-year-old female with a past medical history of end-stage renal disease on hemodialysis, COPD on chronic home O2, colostomy and prior left hip fracture with surgical repair who presented to the ER after tripping in her kitchen and falling resulting in right hip pain. Patient is pleasant lying comfortably in bed. She continues to endorse pain to the right hip but states that is tolerable on the current regimen. She denies any tingling/numbness or shooting pain to the right lower extremity. She has no other complaints denies chest pain, shortness a breath, palpitations, nausea/vomiting, no abdominal pain. Review of Systems Review of Systems: All systems reviewed & are unremarkable except as noted in HPI and below Exam Narrative: AF HR 100 RR 18 SpO2 100 4L NC (baseline) BP 130/60 General: female in no acute respiratory distress who is nontoxic appearing, lying semi recumbent in bed. HEENT: Normocephalic. Atraumatic. Extraocular movement intact. Sclera clear and anicteric. No facial asymmetry. Chest: Lungs are clear to auscultation bilaterally. No wheezes or crackles. CV: Heart was regular rate and rhythm. S1-S2. No murmurs, gallops, or rubs. Abd: Abdomen was soft. Nontender. Nondistended. Positive bowel sounds. Ext: No clubbing, cyanosis. 2+ DP pulses bilaterally. Sensation intact, wiggling toes. Mild edema to the right hip. Neuro: Patient is alert. Speech is clear. Objective Data Vital Signs Vital Signs: Vital Signs - 24 hr 01/14/25 11:00 01/14/25 11:15 01/14/25 11:30 Temperature Pulse Rate 98 92 89 Respiratory Rate Blood Pressure 90/42 L 89/50 L 96/54 L Pulse Oximetry Oxygen Delivery Oxygen Flow Rate 01/14/25 11:45 01/14/25 12:00 01/14/25 12:15 Temperature Pulse Rate 88 88 81 Respiratory Rate Blood Pressure 99/57 L 82/50 L 103/53 L Pulse Oximetry Oxygen Delivery Oxygen Flow Rate 01/14/25 12:30 01/14/25 12:45 01/14/25 12:56 Temperature Pulse Rate 93 73 93 Respiratory Rate Blood Pressure 93/58 L 108/53 L 119/89 Pulse Oximetry Oxygen Delivery Oxygen Flow Rate 01/14/25 13:00 01/14/25 14:00 01/14/25 14:00 Temperature 98.6 F Pulse Rate 93 93 Respiratory Rate 18 16 Blood Pressure 112/54 L Pulse Oximetry 100 Oxygen Delivery Nasal Cannula Oxygen Flow Rate 4 01/14/25 14:00 01/14/25 14:51 01/14/25 15:10 Temperature 96.6 F L 97.6 F Pulse Rate 93 87 Respiratory Rate 18 16 Blood Pressure 117/56 L 79/48 L 99/57 L Pulse Oximetry 100 100 Oxygen Delivery Nasal Cannula Oxygen Flow Rate 4 01/14/25 15:15 01/14/25 15:43 01/14/25 16:08 Temperature Pulse Rate 84 Respiratory Rate Blood Pressure 93/51 L 92/51 L 120/66 Pulse Oximetry Oxygen Delivery Oxygen Flow Rate 01/14/25 17:36 01/14/25 17:50 01/14/25 18:05 Temperature 98.5 F Pulse Rate 93 88 94 Respiratory Rate 10 L 15 14 Blood Pressure 128/70 129/71 123/63 Pulse Oximetry 100 100 100 Oxygen Delivery Simple Face Mask Simple Face Mask Nasal Cannula Oxygen Flow Rate 10 10 6 01/14/25 18:20 01/14/25 18:40 01/14/25 18:55 Temperature 96.2 F L 96.2 F L Pulse Rate 96 93 90 Respiratory Rate 14 14 14 Blood Pressure 126/65 130/68 124/57 L Pulse Oximetry 100 100 100 Oxygen Delivery Nasal Cannula Oxygen Flow Rate 6 01/14/25 19:14 01/14/25 20:00 01/14/25 20:14 Temperature 97.4 F L 97.5 F L Pulse Rate 100 96 Respiratory Rate 16 16 Blood Pressure 135/69 116/54 L Pulse Oximetry 100 100 100 Oxygen Delivery Nasal Cannula Oxygen Flow Rate 3 01/14/25 23:12 01/15/25 03:29 01/15/25 08:00 Temperature 97.4 F L 97.3 F L Pulse Rate 87 98 Respiratory Rate 16 18 Blood Pressure 124/66 120/90 Pulse Oximetry 100 94 94 Oxygen Delivery Nasal Cannula Oxygen Flow Rate 4 01/15/25 08:14 01/15/25 09:55 Temperature 97.3 F L Pulse Rate 100 Respiratory Rate 18 Blood Pressure 130/60 Pulse Oximetry 100 Oxygen Delivery Nasal Cannula Oxygen Flow Rate 6 Intake/Output Intake/Output: Intake & Output 01/12/25 01/13/25 01/14/25 01/15/25 23:59 23:59 23:59 23:59 Intake Total 400 870 450 50 Output Total 225 27 920 150 Balance 175 793 -852 -100 Meds/Results Medications: Active Medications Generic Name Dose Route Start Last Admin Trade Name Freq PRN Reason Stop Dose Admin Albuterol 2 puff 01/14/25 18:29 Albuterol Sulfate (*Sp) Aerosol 1 Puff INHALATION Q3HRT PRN shortness of breath or wheezing Albuterol/Ipratropium 3 ml 01/11/25 20:51 01/14/25 13:59 Ipratropium 0.5 Mg/Albuterol Sulfate 2.5 Mg Ampul.Neb 3 Ml INHALATION 3 ml Q6HRT PRN Administration Shortness Of Breath Clonazepam 0.5 mg 01/12/25 09:00 01/15/25 08:00 Clonazepam (*Crx) 0.5 Mg Tablet PO 0.5 mg QID RON Administration Diazepam 5 mg 01/14/25 18:29 01/15/25 03:39 Diazepam (*Crx) 5 Mg Tablet PO 5 mg Q8H PRN Administration Muscle Spasm Diphenhydramine HCl 25 mg 01/13/25 15:00 01/14/25 08:34 Diphenhydramine Hcl Cap 25 Mg Capsule PO 25 mg Q6H PRN Administration Itching Duloxetine HCl 20 mg 01/12/25 01:00 Duloxetine Hcl 20 Mg Capsule.Dr [employer] sofia [facility] Hydromorphone HCl 4 mg 01/11/25 22:08 01/15/25 08:00 Hydromorphone Hcl (*Crx) 4 Mg Tablet PO 4 mg Q4H PRN Administration Pain Rated 7-10 Hydromorphone HCl 1 mg 01/14/25 18:29 01/15/25 00:27 Hydromorphone Hcl Inj (*Crx) 1 Mg/Ml Syr IV PUSH 1 mg Q2H PRN Administration Breakthrough Pain Rated 7-10 or NPO Hydromorphone HCl 0.5 mg 01/14/25 18:29 Hydromorphone Hcl Inj (*Crx) 1 Mg/Ml Syr IV PUSH Q2H PRN Breakthrough Pain Rated 4-6 or NPO Hydroxyzine HCl 25 mg 01/12/25 01:00 01/15/25 08:06 Hydroxyzine Hcl 25 Mg Tablet PO 25 mg Q4H RON Administration Albumin Human 50 mls @ 999 mls/hr 01/14/25 06:42 Albutein IVPB 02/13/25 06:41 Q10M PRN HYPOTENSION Cefazolin Sodium 2 gm in 50 mls @ 100 mls/hr 01/14/25 21:00 01/15/25 04:30 Ancef 2 Gm/D5w 50 Ml IVPB 01/15/25 13:29 Infused Q8H RON Infusion Ibuprofen 800 mg in 200 mls @ 400 mls/hr 01/14/25 18:29 Caldolor 800 Mg/200 Ml IVPB Q6H PRN Breakthrough Pain Rated 1-3 or NPO Ipratropium [place] 2 spray 01/12/25 09:00 01/14/25 09:53 Ipratropium Nasal [place] 0.03% 15 Ml Bottle NASAL Not Given DAILY [facility] Methadone HCl 5 mg 01/12/25 09:00 01/15/25 08:01 Methadone Hcl (*Crx) 5 Mg Tablet PO 5 mg DAILY RON Administration Morphine Sulfate 2 mg 01/11/25 19:08 01/14/25 10:24 Morphine Sulfate (*Crx) 2 Mg/Ml Inj IV PUSH 2 mg Q2H PRN Administration Pain Rated 7-10 Naloxone HCl 0.1 mg 01/14/25 18:29 Naloxone Hcl 0.4 Mg/Ml Vial IV PUSH Q2M PRN Opiate Reversal Nicotine 1 patch 01/12/25 16:10 01/15/25 08:06 Nicotine (*Pbkc) 21 Mg Patch TRANSDERM 1 patch DAILY RON Administration Nicotine Polacrilex 4 mg 01/13/25 19:53 Nicotine (*Pbkc) 4 Mg Gum PO Q2H PRN Nicotine Cravings Ondansetron HCl 4 mg 01/14/25 18:29 Ondansetron Inj 4 Mg/2 Ml Vial IV PUSH Q4H PRN Nausea And Vomiting Polyethylene Glycol 17 gm 01/15/25 09:00 01/15/25 08:10 Polyethylene Glycol 3350 17 Gm Powd.Pack PO Not Given QAM RON Ropinirole HCl 0.5 mg 01/12/25 01:00 01/14/25 21:02 Ropinirole Hcl 0.5 Mg Tablet PO 0.5 mg HS RON Administration Senna/Docusate Sodium 2 tab 01/15/25 09:00 01/15/25 08:10 Senna/Docusate Sodium Tablet PO Not Given BID [facility] Radiology Results: ITS Impressions Chest X-Ray 01/11/25 18:24 IMPRESSION: Mild pulmonary vascular congestion, without focal infiltrate or effusion. Hip/Pelvis X-Ray 01/11/25 18:25 IMPRESSION: Acute minimally displaced fracture of the right femoral neck, as detailed above. Knee X-Ray 01/11/25 18:27 IMPRESSION: Degenerative disease without acute fracture. Labs Labs: Laboratory Results - last 24 hr 01/15/25 09:58 Sodium 138 Potassium 4.2 Chloride 102 Carbon Dioxide 26 Anion Gap 10 BUN 15 D Creatinine 3.50 H Estim Creat Clear Calc 13 Estimated GFR 13 L Glucose 94 Calcium 9.6
[2025-01-15] MEDS: IPRATROPIUM NASAL SPRAY 0.03% 15 ML BOTTLE 2 SPRAY NASAL (11:13)
[2025-01-15 12:21] LABS: Platelet Estimate Decreased (Adequate)
[2025-01-15 12:22] LABS: Macrocytosis 1+ (NORMAL); Schistocytes None Seen
--- NOTE | 2025-01-15 13:45 | PM.PNNEP ---
Subjective Date/time seen: 01/15/25 13:45 Objective Data Vital Signs Vital Signs: Vital Signs Temp Pulse Resp BP Pulse Ox O2 Del Method O2 Flow Rate 01/15/25 12:14 97.3 F L 104 H 16 105/53 L 100 01/15/25 10:29 Nasal Cannula 4 01/15/25 09:55 Nasal Cannula 6 01/15/25 08:14 97.3 F L 100 18 130/60 100 01/15/25 08:00 94 Nasal Cannula 4 01/15/25 03:29 97.3 F L 98 18 120/90 94 01/14/25 23:12 97.4 F L 87 16 124/66 100 01/14/25 20:14 97.5 F L 96 16 116/54 L 100 01/14/25 20:00 100 Nasal Cannula 3 01/14/25 19:14 97.4 F L 100 16 135/69 100 Intake/Output Intake/Output: Intake & Output 01/12/25 01/13/25 01/14/25 01/15/25 23:59 23:59 23:59 23:59 Intake Total 400 870 450 527 Output Total 225 27 920 500 Balance 175 843 -470 27 Meds/Results Medications: Active Medications Generic Name Dose Route Start Last Admin Trade Name Freq PRN Reason Stop Dose Admin Albuterol 2 puff 01/14/25 18:29 Albuterol Sulfate (*Sp) Aerosol 1 Puff INHALATION Q3HRT PRN shortness of breath or wheezing Albuterol/Ipratropium 3 ml 01/11/25 20:51 01/14/25 13:59 Ipratropium 0.5 Mg/Albuterol Sulfate 2.5 Mg Ampul.Neb 3 Ml INHALATION 3 ml Q6HRT PRN Administration Shortness Of Breath Clonazepam 0.5 mg 01/12/25 09:00 01/15/25 16:03 Clonazepam (*Crx) 0.5 Mg Tablet PO 0.5 mg QID RON Administration Diazepam 5 mg 01/14/25 18:29 01/15/25 16:04 Diazepam (*Crx) 5 Mg Tablet PO 5 mg Q8H PRN Administration Muscle Spasm Diphenhydramine HCl 25 mg 01/13/25 15:00 01/14/25 08:34 Diphenhydramine Hcl Cap 25 Mg Capsule PO 25 mg Q6H PRN Administration Itching Duloxetine HCl 20 mg 01/12/25 01:00 Duloxetine Hcl 20 Mg Capsule.Dr [employer] so[employer] [facility] Hydromorphone HCl 4 mg 01/11/25 22:08 01/15/25 16:03 Hydromorphone Hcl (*Crx) 4 Mg Tablet PO 4 mg Q4H PRN Administration Pain Rated 7-10 Hydromorphone HCl 1 mg 01/14/25 18:29 01/15/25 00:27 Hydromorphone Hcl Inj (*Crx) 1 Mg/Ml Syr IV PUSH 1 mg Q2H PRN Administration Breakthrough Pain Rated 7-10 or NPO Hydromorphone HCl 0.5 mg 01/14/25 18:29 Hydromorphone Hcl Inj (*Crx) 1 Mg/Ml Syr IV PUSH Q2H PRN Breakthrough Pain Rated 4-6 or NPO Hydroxyzine HCl 25 mg 01/12/25 01:00 01/15/25 16:04 Hydroxyzine Hcl 25 Mg Tablet PO 25 mg Q4H [facility] Administration Albumin Human 50 mls @ 999 mls/hr 01/14/25 06:42 Albutein IVPB 02/13/25 06:41 Q10M PRN HYPOTENSION Ibuprofen 800 mg in 200 mls @ 400 mls/hr 01/14/25 18:29 Caldolor 800 Mg/200 Ml IVPB Q6H PRN Breakthrough Pain Rated 1-3 or NPO Ipratropium [place] 2 spray 01/12/25 09:00 01/15/25 11:13 Ipratropium Nasal [place] 0.03% 15 Ml Bottle NASAL 2 spray DAILY [facility] Administration Methadone HCl 5 mg 01/12/25 09:00 01/15/25 08:01 Methadone Hcl (*Crx) 5 Mg Tablet PO 5 mg DAILY [facility] Administration Morphine Sulfate 2 mg 01/11/25 19:08 01/14/25 10:24 Morphine Sulfate (*Crx) 2 Mg/Ml Inj IV PUSH 2 mg Q2H PRN Administration Pain Rated 7-10 Naloxone HCl 0.1 mg 01/14/25 18:29 Naloxone Hcl 0.4 Mg/Ml Vial IV PUSH Q2M PRN Opiate Reversal Nicotine 1 patch 01/12/25 16:10 01/15/25 08:06 Nicotine (*Pbkc) 21 Mg Patch TRANSDERM 1 patch DAILY RON Administration Nicotine Polacrilex 4 mg 01/13/25 19:53 Nicotine (*Pbkc) 4 Mg Gum PO Q2H PRN Nicotine Cravings Ondansetron HCl 4 mg 01/14/25 18:29 Ondansetron Inj 4 Mg/2 Ml Vial IV PUSH Q4H PRN Nausea And Vomiting Polyethylene Glycol 17 gm 01/15/25 09:00 01/15/25 08:10 Polyethylene Glycol 3350 17 Gm Powd.Pack PO Not Given QAM RON Ropinirole HCl 0.5 mg 01/12/25 01:00 01/14/25 21:02 Ropinirole Hcl 0.5 Mg Tablet PO 0.5 mg HS RON Administration Senna/Docusate Sodium 2 tab 01/15/25 09:00 01/15/25 13:39 Senna/Docusate Sodium Tablet PO Not Given BID RON Radiology Results: ITS Impressions Chest X-Ray 01/11/25 18:24 IMPRESSION: Mild pulmonary vascular congestion, without focal infiltrate or effusion. Hip/Pelvis X-Ray 01/11/25 18:25 IMPRESSION: Acute minimally displaced fracture of the right femoral neck, as detailed above. Knee X-Ray 01/11/25 18:27 IMPRESSION: Degenerative disease without acute fracture. Labs Labs: Laboratory Tests 01/15/25 09:58 01/15/25 09:58
[2025-01-15] MEDS: rOPINIRole HCL 0.5 MG TABLET PO (20:56)
[2025-01-16] VITALS (21 sets, daily range): BP systolic 85–123; BP diastolic 48–77; PULSE 20–111; RESP 14–20; TEMP 36.3–37.3; O2SAT 97–100
[2025-01-16] MEDS: HYDROmorphone HCL (*CRX) 4 MG TABLET PO ×2 (04:15→11:13)
[2025-01-16] MEDS: hydrOXYzine HCL 25 MG TABLET PO ×6 (04:15→20:42)
--- NOTE | 2025-01-16 07:36 | P.PNIM_ITS ---
Progress Note: A&P Assessment and Plan (1) Femoral neck fracture: Qualifiers: Encounter type: initial encounter Fracture type: closed Laterality: right Qualified Code(s): S72.001A - Fracture of unspecified part of neck of right femur, initial encounter for closed fracture Code(s): S72.009A - Fracture of unspecified part of neck of unspecified femur, initial encounter for closed fracture Status: Acute Assessment and Plan: Patient reports tripping in her kitchen and falling on her right side resulting in right hip pain. Not on anticoagulation. - Hip/pelvis XR: Acute minimally displaced fracture of the right femoral neck, as detailed above. - Knee XR: Degenerative disease without acute fracture. - Continue patients home pain medication: methadone and p.o. Dilaudid as needed. For pain 7-10 IV Dilaudid as needed. Narcan as needed as patient is on several narcotics - Anticoagulation: Heparin - PT/OT per ortho: Toe touch weight bearing Recommending placement - Ortho consulted s/p percutaneous pinning of right femoral neck fracture on 01/[address] holloway (2) End-stage renal disease on hemodialysis: Code(s): N18.6 - End stage renal disease; Z99.2 - Dependence on renal dialysis Status: Acute Assessment and Plan: Patient has end-stage renal disease, receives HD on . - Nephrology consulted for HD (3) Chronic hypoxic respiratory failure, on home oxygen therapy: Code(s): J96.11 - Chronic respiratory failure with hypoxia; Z99.81 - Dependence on supplemental oxygen Status: Chronic Assessment and Plan: Chronically on 4-6 L NC secondary to COPD. - Continue home oxygen supplementation - Will provide p.r.n. DuoNebs. - Will continue patient's home inhalers. (4) Protein-calorie malnutrition, severe: Code(s): E43 - Unspecified severe protein-calorie malnutrition Status: Acute Assessment and Plan: Supplement per nutrition recommendations (5) Bipolar disorder: Qualifiers: Active/Remission status: remission status unspecified Qualified Code(s): F31.9 - Bipolar disorder, unspecified Code(s): F31.9 - Bipolar disorder, unspecified Status: Chronic Assessment and Plan: Chronic continue home medications (6) Tobacco abuse disorder: Code(s): Z72.0 - Tobacco use Status: Acute Assessment and Plan: Encouraged smoking cessation Time Spent With Patient Time with patient: 25 - 35 minutes Subjective Date/time seen: 01/16/25 07:36 Interval history: 64-year-old female with a past medical history of end-stage renal disease on hemodialysis, COPD on chronic home O2, colostomy and prior left hip fracture with surgical repair who presented to the ER after tripping in her kitchen and falling resulting in right hip pain. Patient is pleasant currently getting dialysis. She continues to endorse pain to the hip but notes that the pain regimen is covering this well. She has no other complaints denies chest pain, shortness a , palpitations, nausea/vomiting, and abdominal pain. Discussed patient with care coordination and plan is for placement at time of discharge. Review of Systems Review of Systems: All systems reviewed & are unremarkable except as noted in HPI and below Exam Narrative: AF HR 93 RR 14 SpO2 100 BP 112/56 General: female in no acute respiratory distress who is nontoxic appearing, lying semi recumbent in bed. Chest: Lungs are clear to auscultation bilaterally. No wheezes or crackles. CV: Heart was regular rate and rhythm. S1-S2. No murmurs, gallops, or rubs. Abd: Abdomen was soft. Nontender. Nondistended. Positive bowel sounds. Ext: No clubbing, cyanosis. 2+ DP pulses bilaterally. Sensation intact, wiggling toes. Mild edema to the right hip. Neuro: Patient is alert. Speech is clear. Objective Data Vital Signs Vital Signs: Vital Signs - 24 hr 01/15/25 08:00 01/15/25 08:14 01/15/25 09:55 Temperature 97.3 F L Pulse Rate 100 Respiratory Rate 18 Blood Pressure 130/60 Pulse Oximetry 94 100 Oxygen Delivery Nasal Cannula Nasal Cannula Oxygen Flow Rate 4 6 01/15/25 10:29 01/15/25 12:14 01/15/25 16:14 Temperature 97.3 F L 97.2 F L Pulse Rate 104 H 98 Respiratory Rate 16 16 Blood Pressure 105/53 L 130/67 Pulse Oximetry 100 100 Oxygen Delivery Nasal Cannula Oxygen Flow Rate 4 01/15/25 20:00 01/15/25 20:45 01/16/25 05:25 Temperature 98.7 F 98.3 F Pulse Rate 92 96 Respiratory Rate 20 20 Blood Pressure 114/62 95/48 L Pulse Oximetry 100 100 100 Oxygen Delivery Nasal Cannula Oxygen Flow Rate 4 Intake/Output Intake/Output: Intake & Output 01/13/25 01/14/25 01/15/25 01/16/25 23:59 23:59 23:59 23:59 Intake Total 870 450 527 237 Output Total 27 920 500 300 Balance 622 -253 27 -63 Meds/Results Medications: Active Medications Generic Name Dose Route Start Last Admin Trade Name Freq PRN Reason Stop Dose Admin Albuterol 2 puff 01/14/25 18:29 Albuterol Sulfate (*Sp) Aerosol 1 Puff INHALATION Q3HRT PRN shortness of breath or wheezing Albuterol/Ipratropium 3 ml 01/11/25 20:51 01/14/25 13:59 Ipratropium 0.5 Mg/Albuterol Sulfate 2.5 Mg Ampul.Neb 3 Ml INHALATION 3 ml Q6HRT PRN Administration Shortness Of Breath Clonazepam 0.5 mg 01/12/25 09:00 01/15/25 20:56 Clonazepam (*Crx) 0.5 Mg Tablet PO 0.5 mg QID RON Administration Diazepam 5 mg 01/14/25 18:29 01/15/25 23:50 Diazepam (*Crx) 5 Mg Tablet PO 5 mg Q8H PRN Administration Muscle Spasm Diphenhydramine HCl 25 mg 01/13/25 15:00 01/14/25 08:34 Diphenhydramine Hcl Cap 25 Mg Capsule PO 25 mg Q6H PRN Administration Itching Duloxetine HCl 20 mg 01/12/25 01:00 Duloxetine Hcl 20 Mg Capsule.Dr CARBONE .linda [facility] Epoetin Casey-epbx 10,000 units 01/16/25 18:16 Epoetin Casey-Epbx 10,000 Units/Ml Vial IV PUSH 01/16/25 18:17 ONCE ONE Hydromorphone HCl 4 mg 01/11/25 22:08 01/16/25 04:15 Hydromorphone Hcl (*Crx) 4 Mg Tablet PO 4 mg Q4H PRN Administration Pain Rated 7-10 Hydromorphone HCl 1 mg 01/14/25 18:29 01/15/25 00:27 Hydromorphone Hcl Inj (*Crx) 1 Mg/Ml Syr IV PUSH 1 mg Q2H PRN Administration Breakthrough Pain Rated 7-10 or NPO Hydromorphone HCl 0.5 mg 01/14/25 18:29 Hydromorphone Hcl Inj (*Crx) 1 Mg/Ml Syr IV PUSH Q2H PRN Breakthrough Pain Rated 4-6 or NPO Hydroxyzine HCl 25 mg 01/12/25 01:00 01/16/25 04:15 Hydroxyzine Hcl 25 Mg Tablet PO 25 mg Q4H RON Administration Albumin Human 50 mls @ 999 mls/hr 01/14/25 06:42 Albutein IVPB 02/13/25 06:41 Q10M PRN HYPOTENSION Ibuprofen 800 mg in 200 mls @ 400 mls/hr 01/14/25 18:29 Caldolor 800 Mg/200 Ml IVPB Q6H PRN Breakthrough Pain Rated 1-3 or NPO Ipratropium [place] 2 spray 01/12/25 09:00 01/15/25 11:13 Ipratropium Nasal [place] 0.03% 15 Ml Bottle NASAL 2 spray DAILY RON Administration Methadone HCl 5 mg 01/12/25 09:00 01/15/25 08:01 Methadone Hcl (*Crx) 5 Mg Tablet PO 5 mg DAILY RON Administration Morphine Sulfate 2 mg 01/11/25 19:08 01/14/25 10:24 Morphine Sulfate (*Crx) 2 Mg/Ml Inj IV PUSH 2 mg Q2H PRN Administration Pain Rated 7-10 Naloxone HCl 0.1 mg 01/14/25 18:29 Naloxone Hcl 0.4 Mg/Ml Vial IV PUSH Q2M PRN Opiate Reversal Nicotine 1 patch 01/12/25 16:10 01/15/25 08:06 Nicotine (*Pbkc) 21 Mg Patch TRANSDERM 1 patch DAILY RON Administration Nicotine Polacrilex 4 mg 01/13/25 19:53 Nicotine (*Pbkc) 4 Mg Gum PO Q2H PRN Nicotine Cravings Ondansetron HCl 4 mg 01/14/25 18:29 Ondansetron Inj 4 Mg/2 Ml Vial IV PUSH Q4H PRN Nausea And Vomiting Polyethylene Glycol 17 gm 01/15/25 09:00 01/15/25 08:10 Polyethylene Glycol 3350 17 Gm Powd.Pack PO Not Given QAM RON Ropinirole HCl 0.5 mg 01/12/25 01:00 01/15/25 20:56 Ropinirole Hcl 0.5 Mg Tablet PO 0.5 mg HS RON Administration Senna/Docusate Sodium 2 tab 01/15/25 09:00 01/15/25 13:39 Senna/Docusate Sodium Tablet PO Not Given BID [facility] Radiology Results: ITS Impressions Chest X-Ray 01/11/25 18:24 IMPRESSION: Mild pulmonary vascular congestion, without focal infiltrate or effusion. Hip/Pelvis X-Ray 01/11/25 18:25 IMPRESSION: Acute minimally displaced fracture of the right femoral neck, as detailed above. Knee X-Ray 01/11/25 18:27 IMPRESSION: Degenerative disease without acute fracture. Labs Labs: Laboratory Results - last 24 hr 01/15/25 09:58 WBC 8.9 RBC 2.91 L Hgb 10.3 L Hct 33.2 L MCV 114.1 H MCH 35.4 H MCHC 31.0 L RDW 15.7 H Plt Count 135 L MPV 11.2 H Immature Gran % (Auto) 0.5 Neut % (Auto) 79.9 H Lymph % (Auto) 6.2 L [place] % (Auto) 10.1 H Eos % (Auto) 2.8 Baso % (Auto) 0.5 Lymph # (Auto) 0.55 L [place] # (Auto) 0.9 H Eos # (Auto) 0.3 Baso # (Auto) 0.0 Abs Immat Gran (auto) 0.04 H Absolute Neuts (auto) 7.1 H Absolute Nucleated RBC 0.000 Band Neutrophils % Not Reportable Nucleated RBC % 0.0 Platelet Estimate Decreased Macrocytosis 1+ Schistocytes None seen Sodium 138 Potassium 4.2 Chloride 102 Carbon Dioxide 26 Anion Gap 10 BUN 15 D Creatinine 3.50 H Estim Creat Clear Calc 13 Estimated GFR 13 L Glucose 94 Calcium 9.6 Quality VTE Prophylaxis VTE prophylaxis: mechanical ordered (SCDs) and pharmacologic ordered
[2025-01-16 08:17] LABS: Hematocrit 33.1 % (37.0-47.0); Hemoglobin 10.1 g/dL (12.0-15.0); Mean Corpuscular HGB Conc 30.5 g/dl (32-36); Mean Corpuscular Hemoglobin 34.1 pg (26-34); Mean Corpuscular Volume 111.8 fl (80-100); Mean Platelet Volume 11.1 fl (7.4-10.4); Platelet Count Result 128 k/mm3 (150-375); Red Blood Count 2.96 M/mm3 (4.2-5.4); Red Cell Distribution Width 15.4 % (11.5-14.5); White Blood Count 8.2 K/mm3 (4.5-10.0)
[2025-01-16 08:36] LABS: Anion Gap 11 mmol/L (4-12); Blood Urea Nitrogen 29 mg/dL (7-17); Calcium 9.7 mg/dL (8.4-10.2); Carbon Dioxide 26 mmol/L (22-30); Chloride 100 mmol/L (98-107); Estimated CRCL calculation 8 ml/min; Estimated Glomerular Filt Rate 9; Glucose 111 mg/dL (65-110); Potassium 4.4 mmol/L (3.4-5.0); Sodium 137 mmol/L (137-145)
[2025-01-16] MEDS: clonazePAM (*CRX) 0.5 MG TABLET PO ×4 (08:53→20:42)
[2025-01-16] MEDS: SENNA/DOCUSATE SODIUM TABLET 2 TAB PO ×2 (08:53→17:56)
[2025-01-16] MEDS: methADONE HCL (*CRX) 5 MG TABLET PO (08:53)
[2025-01-16] MEDS: NICOTINE (*PBKC) 21 MG PATCH 1 PATCH TRANSDERM (08:55)
[2025-01-16] MEDS: IPRATROPIUM NASAL SPRAY 0.03% 15 ML BOTTLE 2 SPRAY NASAL (08:58)
--- NOTE | 2025-01-16 09:26 | PCPTNOTE ---
Attempted to see pt for PT, however pt out of room for dialysis. Will continue to follow per PT POC.
--- NOTE | 2025-01-16 09:45 | PCOTNOTE ---
Patient out of the room at this time. Patient is in dialysis. Will check back at a later time.
--- NOTE | 2025-01-16 09:52 | P.PNOP_ITS ---
Progress Note: A&P Assessment and Plan (1) Femoral neck fracture: Qualifiers: Encounter type: initial encounter Fracture type: closed Laterality: right Qualified Code(s): S72.001A - Fracture of unspecified part of neck of right femur, initial encounter for closed fracture Code(s): S72.009A - Fracture of unspecified part of neck of unspecified femur, initial encounter for closed fracture Status: Acute Assessment and Plan: POD #1 : PERCUTANEOUS PINNING RIGHT FEMORAL NECK FRACTURE Continue PT/OT. TTWB. Walker. HIGH FALL RISK. Continue pain control. Ice Hip. Protect skin. DVT prophylaxis with Heparin. SCDs. Incentive Spirometry Use reviewed. Monitor Dressing. Change prior to discharge. Bowel Regimen. Dispo: SNF pending progress with PT/OT Plan Reviewed history, exam, radiographs and current labs with attending MD and covering surgeon, Dr. Jarquin, who agrees with current plan as indicated above. No further recommendations from Dr. Jarquin at this time. Subjective Subjective Date/Time Seen: 01/16/25 09:52 Post Op day: 1 Interval history: POD #1: PERCUTANEOUS PINNING RIGHT FEMORAL NECK FRACTURE Patient doing well. Pain well controlled. In HD at time of exam. No new concerns. Review of Systems Review of Systems: All systems reviewed & are unremarkable except as noted in HPI and below Exam Const: General: comfortable and no acute distress Resp: Effort & Inspection: normal respiratory effort Cardio: Rate: regular rate Rhythm: regular rhythm GI: Inspection: non-distended Skin: General skin exam: normal color Other: Incision right hip c/d/i. Surrounding tissue without redness/warmth. Mild swelling consistent with recent surgery. No drainage. Neuro: Cognition (Neuro): normal cognition Speech: normal speech Extrem: Right lower extremity: normal to inspection, normal capillary refill, hip/thigh Details: tenderness Location: of the hip (Thigh soft ) Location: laterally and anteriorly, swelling Location: at the hip, abnormal ROM (limited consistent with recent surgery ) Details: pain with active ROM during and pain with passive ROM during and other (Incision c/d/i. ); no deformity and no unusual warmth, knee Details: normal to inspection; no tenderness and no swelling, lower leg (Negative Moe's Sign ) Details: normal to inspection and no edema; no tenderness, ankle (+ankle dorsiflexion/plantarflexion) Details: normal to inspection and no edema; no tenderness, no swelling and no ecchymosis and foot Details: normal capillary refill, toes with normal ROM, vascular exam Details: dorsalis pedis pulse present and motor-sensory exam Details: light- touch normal; no tenderness Objective Data Vital Signs Vital Signs: Vital Signs - 24 hr 01/15/25 09:55 01/15/25 10:29 01/15/25 12:14 Temperature 36.3 C L Pulse Rate 104 H Respiratory Rate 16 Blood Pressure 105/53 L Pulse Oximetry 100 Oxygen Delivery Nasal Cannula Nasal Cannula Oxygen Flow Rate 6 4 01/15/25 16:14 01/15/25 20:00 01/15/25 20:45 Temperature 36.2 C L 37.1 C Pulse Rate 98 92 Respiratory Rate 16 20 Blood Pressure 130/67 114/62 Pulse Oximetry 100 100 100 Oxygen Delivery Nasal Cannula Oxygen Flow Rate 4 01/16/25 05:25 01/16/25 08:29 Temperature 36.8 C Pulse Rate 96 Respiratory Rate 20 Blood Pressure 95/48 L Pulse Oximetry 100 100 Oxygen Delivery Nasal Cannula Oxygen Flow Rate 4 Intake/Output Intake/Output: Intake & Output 01/13/25 01/14/25 01/15/25 01/16/25 23:59 23:59 23:59 23:59 Intake Total 870 450 527 237 Output Total 27 920 500 310 Balance 843 470 27 -73 Meds/Results Medications: Active Medications Generic Name Dose Route Start Last Admin Trade Name Freq PRN Reason Stop Dose Admin Albuterol 2 puff 01/14/25 18:29 Albuterol Sulfate (*Sp) Aerosol 1 Puff INHALATION Q3HRT PRN shortness of breath or wheezing Albuterol/Ipratropium 3 ml 01/11/25 20:51 01/14/25 13:59 Ipratropium 0.5 Mg/Albuterol Sulfate 2.5 Mg Ampul.Neb 3 Ml INHALATION 3 ml Q6HRT PRN Administration Shortness Of Breath Clonazepam 0.5 mg 01/12/25 09:00 01/16/25 08:53 Clonazepam (*Crx) 0.5 Mg Tablet PO 0.5 mg QID RON Administration Diazepam 5 mg 01/14/25 18:29 01/15/25 23:50 Diazepam (*Crx) 5 Mg Tablet PO 5 mg Q8H PRN Administration Muscle Spasm Diphenhydramine HCl 25 mg 01/13/25 15:00 01/14/25 08:34 Diphenhydramine Hcl Cap 25 Mg Capsule PO 25 mg Q6H PRN Administration Itching Duloxetine HCl 20 mg 01/12/25 01:00 Duloxetine Hcl 20 Mg Capsule.Dr [employer] sofia [facility] Epoetin Casey-epbx 10,000 units 01/16/25 18:16 Epoetin Casey-Epbx 10,000 Units/Ml Vial IV PUSH 01/16/25 18:17 ONCE ONE Hydromorphone HCl 4 mg 01/11/25 22:08 01/16/25 04:15 Hydromorphone Hcl (*Crx) 4 Mg Tablet PO 4 mg Q4H PRN Administration Pain Rated 7-10 Hydromorphone HCl 1 mg 01/14/25 18:29 01/15/25 00:27 Hydromorphone Hcl Inj (*Crx) 1 Mg/Ml Syr IV PUSH 1 mg Q2H PRN Administration Breakthrough Pain Rated 7-10 or NPO Hydromorphone HCl 0.5 mg 01/14/25 18:29 Hydromorphone Hcl Inj (*Crx) 1 Mg/Ml Syr IV PUSH Q2H PRN Breakthrough Pain Rated 4-6 or NPO Hydroxyzine HCl 25 mg 01/12/25 01:00 01/16/25 08:53 Hydroxyzine Hcl 25 Mg Tablet PO 25 mg Q4H RON Administration Albumin Human 50 mls @ 999 mls/hr 01/14/25 06:42 Albutein IVPB 02/13/25 06:41 Q10M PRN HYPOTENSION Ibuprofen 800 mg in 200 mls @ 400 mls/hr 01/14/25 18:29 Caldolor 800 Mg/200 Ml IVPB Q6H PRN Breakthrough Pain Rated 1-3 or NPO Ipratropium [place] 2 spray 01/12/25 09:00 01/16/25 08:58 Ipratropium Nasal [place] 0.03% 15 Ml Bottle NASAL 2 spray DAILY RON Administration Methadone HCl 5 mg 01/12/25 09:00 01/16/25 08:53 Methadone Hcl (*Crx) 5 Mg Tablet PO 5 mg DAILY RON Administration Miscellaneous Information 0 each 01/16/25 00:01 Recommend Dc Of Ibuprofen Since Patient On Dialysis XX 02/15/25 00:00 CLARIFY RON Morphine Sulfate 2 mg 01/11/25 19:08 01/14/25 10:24 Morphine Sulfate (*Crx) 2 Mg/Ml Inj IV PUSH 2 mg Q2H PRN Administration Pain Rated 7-10 Naloxone HCl 0.1 mg 01/14/25 18:29 Naloxone Hcl 0.4 Mg/Ml Vial IV PUSH Q2M PRN Opiate Reversal Nicotine 1 patch 01/12/25 16:10 01/16/25 08:55 Nicotine (*Pbkc) 21 Mg Patch TRANSDERM 1 patch DAILY RON Administration Nicotine Polacrilex 4 mg 01/13/25 19:53 Nicotine (*Pbkc) 4 Mg Gum PO Q2H PRN Nicotine Cravings Ondansetron HCl 4 mg 01/14/25 18:29 Ondansetron Inj 4 Mg/2 Ml Vial IV PUSH Q4H PRN Nausea And Vomiting Polyethylene Glycol 17 gm 01/15/25 09:00 01/16/25 08:56 Polyethylene Glycol 3350 17 Gm Powd.Pack PO Not Given QAM RON Ropinirole HCl 0.5 mg 01/12/25 01:00 01/15/25 20:56 Ropinirole Hcl 0.5 Mg Tablet PO 0.5 mg HS RON Administration Senna/Docusate Sodium 2 tab 01/15/25 09:00 01/16/25 08:53 Senna/Docusate Sodium Tablet PO 2 tab BID RON Administration Radiology Results: ITS Impressions Chest X-Ray 01/11/25 18:24 IMPRESSION: Mild pulmonary vascular congestion, without focal infiltrate or effusion. Hip/Pelvis X-Ray 01/11/25 18:25 IMPRESSION: Acute minimally displaced fracture of the right femoral neck, as detailed above. Knee X-Ray 01/11/25 18:27 IMPRESSION: Degenerative disease without acute fracture. Labs Labs: Laboratory Results - last 24 hr 01/15/25 01/16/25 09:58 07:51 WBC 8.9 8.2 RBC 2.91 L 2.96 L Hgb 10.3 L 10.1 L Hct 33.2 L 33.1 L MCV 114.1 H 111.8 H MCH 35.4 H 34.1 H MCHC 31.0 L 30.5 L RDW 15.7 H 15.4 H Plt Count 135 L 128 L MPV 11.2 H 11.1 H Immature Gran % (Auto) 0.5 Neut % (Auto) 79.9 H Lymph % (Auto) 6.2 L [place] % (Auto) 10.1 H Eos % (Auto) 2.8 Baso % (Auto) 0.5 Lymph # (Auto) 0.55 L [place] # (Auto) 0.9 H Eos # (Auto) 0.3 Baso # (Auto) 0.0 Abs Immat Gran (auto) 0.04 H Absolute Neuts (auto) 7.1 H Absolute Nucleated RBC 0.000 Band Neutrophils % Not Reportable Nucleated RBC % 0.0 Platelet Estimate Decreased Macrocytosis 1+ Schistocytes None seen Sodium 138 137 Potassium 4.2 4.4 Chloride 102 100 Carbon Dioxide 26 26 Anion Gap 10 11 BUN 15 D 29 H D Creatinine 3.50 H 4.90 H Estim Creat Clear Calc 13 8 Estimated GFR 13 L 9 L Glucose 94 111 H Calcium 9.6 9.7
[2025-01-16] MEDS: ALBUMIN HUMAN 25% 25 GM/100 ML 100 ML IVPB (10:33)
[2025-01-16] MEDS: diazePAM (*CRX) 5 MG TABLET PO (11:13)
--- NOTE | 2025-01-16 11:50 | PM.PNNEP ---
Subjective Date/time seen: 01/16/25 11:50 Interval history: Follow-up for end stage renal disease on hemodialysis. Tolerating dialysis treatment at the time of my visit (seen on HD at 11:40AM); Objective Data Vital Signs Vital Signs: Vital Signs Temp Pulse Resp BP Pulse Ox O2 Del Method O2 Flow Rate 01/16/25 11:30 97 116/67 01/16/25 11:15 96 103/63 01/16/25 11:00 96 106/65 01/16/25 10:45 94 92/57 L 01/16/25 10:30 64 100/64 01/16/25 10:15 61 97/58 L 01/16/25 10:00 102 H 87/53 L 01/16/25 09:49 91 94/60 L 01/16/25 09:49 4 01/16/25 09:30 97.7 F 90 18 85/48 L 97 01/16/25 09:00 97 Nasal Cannula 4 01/16/25 08:29 100 Nasal Cannula 4 01/16/25 05:25 98.3 F 96 20 95/48 L 100 01/15/25 20:45 98.7 F 92 20 114/62 100 01/15/25 20:00 100 Nasal Cannula 4 Intake/Output Intake/Output: Intake & Output 01/13/25 01/14/25 01/15/25 01/16/25 23:59 23:59 23:59 23:59 Intake Total 870 450 527 287 Output Total 27 920 500 625 Balance 843 470 27 -338 Meds/Results Medications: Active Medications Generic Name Dose Route Start Last Admin Trade Name Freq PRN Reason Stop Dose Admin Albuterol 2 puff 01/14/25 18:29 Albuterol Sulfate (*Sp) Aerosol 1 Puff INHALATION Q3HRT PRN shortness of breath or wheezing Albuterol/Ipratropium 3 ml 01/11/25 20:51 01/14/25 13:59 Ipratropium 0.5 Mg/Albuterol Sulfate 2.5 Mg Ampul.Neb 3 Ml INHALATION 3 ml Q6HRT PRN Administration Shortness Of Breath Clonazepam 0.5 mg 01/12/25 09:00 01/16/25 13:31 Clonazepam (*Crx) 0.5 Mg Tablet PO 0.5 mg QID RON Administration Diazepam 5 mg 02/18/25 18:29 01/16/25 11:13 Diazepam (*Crx) 5 Mg Tablet PO 5 mg Q8H PRN Administration Muscle Spasm Diphenhydramine HCl 25 mg 01/13/25 15:00 01/14/25 08:34 Diphenhydramine Hcl Cap 25 Mg Capsule PO 25 mg Q6H PRN Administration Itching Duloxetine HCl 20 mg 01/12/25 01:00 Duloxetine Hcl 20 Mg Capsule.Dr [employer] sofia [facility] Epoetin Casey-epbx 10,000 units 01/16/25 18:16 01/16/25 12:10 Epoetin [place]-Epbx 10,000 Units/Ml Vial IV PUSH 01/16/25 18:17 10,000 units ONCE ONE Administration Hydromorphone HCl 4 mg 01/11/25 22:08 01/16/25 11:13 Hydromorphone Hcl (*Crx) 4 Mg Tablet PO 4 mg Q4H PRN Administration Pain Rated 7-10 Hydromorphone HCl 1 mg 01/14/25 18:29 01/15/25 00:27 Hydromorphone Hcl Inj (*Crx) 1 Mg/Ml Syr IV PUSH 1 mg Q2H PRN Administration Breakthrough Pain Rated 7-10 or NPO Hydromorphone HCl 0.5 mg 01/14/25 18:29 Hydromorphone Hcl Inj (*Crx) 1 Mg/Ml Syr IV PUSH Q2H PRN Breakthrough Pain Rated 4-6 or NPO Hydroxyzine HCl 25 mg 01/12/25 01:00 01/16/25 13:31 Hydroxyzine Hcl 25 Mg Tablet PO 25 mg Q4H [facility] Administration Albumin Human 50 mls @ 999 mls/hr 01/14/25 06:42 Albutein IVPB 02/13/25 06:41 Q10M PRN HYPOTENSION Ibuprofen 800 mg in 200 mls @ 400 mls/hr 01/14/25 18:29 Caldolor 800 Mg/200 Ml IVPB Q6H PRN Breakthrough Pain Rated 1-3 or NPO Ipratropium [place] 2 spray 01/12/25 09:00 01/16/25 08:58 Ipratropium Nasal [place] 0.03% 15 Ml Bottle NASAL 2 spray DAILY [facility] Administration Methadone HCl 5 mg 01/12/25 09:00 01/16/25 08:53 Methadone Hcl (*Crx) 5 Mg Tablet PO 5 mg DAILY RON Administration Miscellaneous Information 0 each 01/16/25 00:01 Recommend Dc Of Ibuprofen Since Patient On Dialysis XX 02/15/25 00:00 CLARIFY [facility] Morphine Sulfate 2 mg 01/11/25 19:08 01/14/25 10:24 Morphine Sulfate (*Crx) 2 Mg/Ml Inj IV PUSH 2 mg Q2H PRN Administration Pain Rated 7-10 Naloxone HCl 0.1 mg 01/14/25 18:29 Naloxone Hcl 0.4 Mg/Ml Vial IV PUSH Q2M PRN Opiate Reversal Nicotine 1 patch 01/12/25 16:10 01/16/25 08:55 Nicotine (*Pbkc) 21 Mg Patch TRANSDERM 1 patch DAILY RON Administration Nicotine Polacrilex 4 mg 01/13/25 19:53 Nicotine (*Pbkc) 4 Mg Gum PO Q2H PRN Nicotine Cravings Ondansetron HCl 4 mg 01/14/25 18:29 Ondansetron Inj 4 Mg/2 Ml Vial IV PUSH Q4H PRN Nausea And Vomiting Polyethylene Glycol 17 gm 01/15/25 09:00 01/16/25 08:56 Polyethylene Glycol 3350 17 Gm Powd.Pack PO Not Given QAM [facility] Ropinirole HCl 0.5 mg 01/12/25 01:00 01/15/25 20:56 Ropinirole Hcl 0.5 Mg Tablet PO 0.5 mg HS RON Administration Senna/Docusate Sodium 2 tab 01/15/25 09:00 01/16/25 08:53 Senna/Docusate Sodium Tablet PO 2 tab BID RON Administration Radiology Results: ITS Impressions Chest X-Ray 01/11/25 18:24 IMPRESSION: Mild pulmonary vascular congestion, without focal infiltrate or effusion. Hip/Pelvis X-Ray 01/11/25 18:25 IMPRESSION: Acute minimally displaced fracture of the right femoral neck, as detailed above. Knee X-Ray 01/11/25 18:27 IMPRESSION: Degenerative disease without acute fracture. Labs Labs: Laboratory Tests 01/16/25 07:51 01/16/25 07:51 Calcium 9.7
[2025-01-16] MEDS: EPOETIN ALFA-EPBX 10,000 UNITS/ML VIAL 10000 UNITS IV PUSH (12:10)
[2025-01-16] MEDS: HEPARIN SODIUM 1,000 UNITS/ML VIAL 6000 UNITS IV PUSH (12:48)
--- NOTE | 2025-01-16 14:24 | PCNFU ---
Nutrition Follow-Up Complete: Inadequate energy intake related to NPO status as evidenced by diet order Underweight as evidenced by a BMI of 16.7 Diet order - Goal is met with renal diet PO intake 75% or greater - Progressing with intakes 25-100% Goal: Pt current nutrition is renal diet, Nepro BID (420 kcal, 19 g protein). Nutrition recommendation: No new recommendations. Continue current nutrition care plan and orders. Agree with orders Last recorded weight is 44.5 kg. Bowel Motility: +1 BM 01/16/25 Labs Reviewed: HGb 10.1, Hct 33.1, GFR 29, Cre 4.9, Glu 111 Meds Noted: Senna, miralax Skin: No skin issues noted Additional Notes: Appetite is fair overall. Getting supplements. Continue current nutrition care plan Monitor diet order, intake, wt, labs. Follow up in 5 days.
[2025-01-16 15:02] LABS: MRSA (PCR) NOT DETECTED (NOT DETECTE)
--- NOTE | 2025-01-16 15:44 | PCPTNOTE ---
On 01/16/25, the student, RUDDY Post, completed [facility] documentation on this patient. I have reviewed the student's documentation and agree with the findings.
[2025-01-16] MEDS: rOPINIRole HCL 0.5 MG TABLET PO (20:42)
[2025-01-17] VITALS (8 sets, daily range): BP systolic 81–135; BP diastolic 51–75; PULSE 79–89; RESP 16–20; TEMP 36.5–37.3; O2SAT 100
[2025-01-17] MEDS: hydrOXYzine HCL 25 MG TABLET PO ×5 (05:24→21:38)
[2025-01-17] MEDS: HYDROmorphone HCL (*CRX) 4 MG TABLET PO (05:24)
[2025-01-17] MEDS: diazePAM (*CRX) 5 MG TABLET PO (05:25)
--- NOTE | 2025-01-17 08:23 | PM.IMPN ---
Progress Note: A&P Assessment and Plan (1) Femoral neck fracture: Qualifiers: Encounter type: initial encounter Fracture type: closed Laterality: right Qualified Code(s): S72.001A - Fracture of unspecified part of neck of right femur, initial encounter for closed fracture Code(s): S72.009A - Fracture of unspecified part of neck of unspecified femur, initial encounter for closed fracture Status: Acute Assessment and Plan: Patient reports tripping in her kitchen and falling on her right side resulting in right hip pain. Not on anticoagulation. - Hip/pelvis XR: Acute minimally displaced fracture of the right femoral neck, as detailed above. - Knee XR: Degenerative disease without acute fracture. - Continue patients home pain medication: methadone and p.o. Dilaudid as needed. For pain 7-10 IV Dilaudid as needed. Narcan as needed as patient is on several narcotics - Anticoagulation: Eliquis 2.5 mg BID Spoke with nephrology and ortho and all are in agreement with this anticoagulation - PT/OT per ortho: Toe touch weight bearing Recommending placement - Ortho consulted s/p percutaneous pinning of right femoral neck fracture on 01/[address] holloway (2) End-stage renal disease on hemodialysis: Code(s): N18.6 - End stage renal disease; Z99.2 - Dependence on renal dialysis Status: Acute Assessment and Plan: Patient has end-stage renal disease, receives HD on . - Nephrology consulted for HD (3) Chronic hypoxic respiratory failure, on home oxygen therapy: Code(s): J96.11 - Chronic respiratory failure with hypoxia; Z99.81 - Dependence on supplemental oxygen Status: Chronic Assessment and Plan: Chronically on 4-6 L NC secondary to COPD. - Continue home oxygen supplementation - Will provide p.r.n. DuoNebs. - Will continue patient's home inhalers. (4) Protein-calorie malnutrition, severe: Code(s): E43 - Unspecified severe protein-calorie malnutrition Status: Acute Assessment and Plan: Supplement per nutrition recommendations (5) Bipolar disorder: Qualifiers: Active/Remission status: remission status unspecified Qualified Code(s): F31.9 - Bipolar disorder, unspecified Code(s): F31.9 - Bipolar disorder, unspecified Status: Chronic Assessment and Plan: Chronic continue home medications (6) Tobacco abuse disorder: Code(s): Z72.0 - Tobacco use Status: Acute Assessment and Plan: Encouraged smoking cessation (7) Chronic narcotic use: Code(s): F11.90 - Opioid use, unspecified, uncomplicated Status: Acute Assessment and Plan: Patient had her first prescription of methadone 10 mg [place] on 01/09, [place] She states that she did not take this medication at home. She was started on 5 mg daily on admission. Will wean her to 2.5 mg daily and continue to wean patient off of methadone. Patient was to be discharged to SNF however they cannot take methadone as they will not receive the medication in time. Will also adjust her PRN dilaud[place] she is to take this q6H as needed. Time Spent With Patient Time with patient: Greater than 35 minutes Subjective Date/time seen: 01/17/25 08:23 Interval history: 64-year-old female with a past medical history of end-stage renal disease on hemodialysis, COPD on chronic home O2, colostomy and prior left hip fracture with surgical repair who presented to the ER after tripping in her kitchen and falling resulting in right hip pain. Patient is pleasant sitting on the side of the bed. She has no complaints at this time denying chest pain, palpitations, shortness of breaht, nausea/vomiting and abdominal pain. She also denies tingling/numbness to the lower extremity. Patient had her first prescription of methadone 10 mg [place] 01[place]09, [place] She states that she did not take this medication at home. She was started on 5 mg daily on admission. Will wean her to 2.5 mg daily and continue to wean patient off of methadone. Patient was to be discharged to SNF however they cannot take methadone as they will not receive the medication in time per care coordination. Will also adjust her PRN [place] she is to take this q6H as needed. Review of Systems Review of Systems: All systems reviewed & are unremarkable except as noted in HPI and below Exam Narrative: AF HR 86 RR 18 SpO2 100 4L NC BP 109/51 General: female in no acute respiratory distress who is nontoxic appearing, lying semi recumbent in bed. Chest: Lungs are clear to auscultation bilaterally. No wheezes or crackles. CV: Heart was regular rate and rhythm. S1-S2. No murmurs, gallops, or rubs. Abd: Abdomen was soft. Nontender. Nondistended. Positive bowel sounds. Ext: No clubbing, cyanosis. 2+ DP pulses bilaterally. Sensation intact, wiggling toes. Mild edema to the right hip. Neuro: Patient is alert. Speech is clear. Objective Data Vital Signs Vital Signs: Vital Signs - 24 hr 01/16/25 08:29 01/16/25 09:00 01/16/25 09:30 Temperature 97.7 F Pulse Rate 90 Respiratory Rate 18 Blood Pressure 85/48 L Pulse Oximetry 100 97 97 Oxygen Delivery Nasal Cannula Nasal Cannula Oxygen Flow Rate 4 4 01/16/25 09:49 01/16/25 09:49 01/16/25 10:00 Temperature Pulse Rate 91 102 H Respiratory Rate Blood Pressure 94/60 L 87/53 L Pulse Oximetry Oxygen Delivery Oxygen Flow Rate 4 01/16/25 10:15 01/16/25 10:30 01/16/25 10:45 Temperature Pulse Rate 61 64 94 Respiratory Rate Blood Pressure 97/58 L 100/64 92/57 L Pulse Oximetry Oxygen Delivery Oxygen Flow Rate 01/16/25 11:00 01/16/25 11:15 01/16/25 11:30 Temperature Pulse Rate 96 96 97 Respiratory Rate Blood Pressure 106/65 103/63 116/67 Pulse Oximetry Oxygen Delivery Oxygen Flow Rate 01/16/25 11:45 01/16/25 12:00 01/16/25 12:15 Temperature Pulse Rate 94 100 100 Respiratory Rate Blood Pressure 105/58 L 113/66 114/74 Pulse Oximetry Oxygen Delivery Oxygen Flow Rate 01/16/25 12:35 01/16/25 12:45 01/16/25 14:18 Temperature 98.2 F 97.4 F L Pulse Rate 111 H 20 L 93 Respiratory Rate 20 14 Blood Pressure 98/77 L 90/52 L 112/56 L Pulse Oximetry 100 100 Oxygen Delivery Oxygen Flow Rate 01/16/25 20:25 01/16/25 20:42 01/17/25 00:50 Temperature 99.2 F 97.7 F Pulse Rate 91 88 Respiratory Rate 20 20 Blood Pressure 123/64 99/56 L Pulse Oximetry 100 100 100 Oxygen Delivery Nasal Cannula Oxygen Flow Rate 4 01/17/25 05:10 Temperature 97.8 F Pulse Rate 89 Respiratory Rate 20 Blood Pressure 110/62 Pulse Oximetry 100 Oxygen Delivery Oxygen Flow Rate Intake/Output Intake/Output: Intake & Output 01/14/25 01/15/25 01/16/25 01/17/25 23:59 23:59 23:59 23:59 Intake Total 450 527 287 50 Output Total 920 500 750 450 Balance -470 87 -695 -607 Meds/Results Medications: Active Medications Generic Name Dose Route Start Last Admin Trade Name Freq PRN Reason Stop Dose Admin Albuterol 2 puff 01/14/25 18:29 Albuterol Sulfate (*Sp) Aerosol 1 Puff INHALATION Q3HRT PRN shortness of breath or wheezing Albuterol/Ipratropium 3 ml 01/11/25 20:51 01/14/25 13:59 Ipratropium 0.5 Mg/Albuterol Sulfate 2.5 Mg Ampul.Neb 3 Ml INHALATION 3 ml Q6HRT PRN Administration Shortness Of Breath Clonazepam 0.5 mg 01/12/25 09:00 01/16/25 20:42 Clonazepam (*Crx) 0.5 Mg Tablet PO 0.5 mg QID RON Administration Diazepam 5 mg 01/14/25 18:29 01/17/25 05:25 Diazepam (*Crx) 5 Mg Tablet PO 5 mg Q8H PRN Administration Muscle Spasm Diphenhydramine HCl 25 mg 01/13/25 15:00 01/14/25 08:34 Diphenhydramine Hcl Cap 25 Mg Capsule PO 25 mg Q6H PRN Administration Itching Duloxetine HCl 20 mg 01/12/25 01:00 Duloxetine Hcl 20 Mg Capsule.Dr CARBONE .linda [facility] Hydromorphone HCl 4 mg 01/11/25 22:08 01/17/25 05:24 Hydromorphone Hcl (*Crx) 4 Mg Tablet PO 4 mg Q4H PRN Administration Pain Rated 7-10 Hydromorphone HCl 1 mg 01/14/25 18:29 01/15/25 00:27 Hydromorphone Hcl Inj (*Crx) 1 Mg/Ml Syr IV PUSH 1 mg Q2H PRN Administration Breakthrough Pain Rated 7-10 or NPO Hydromorphone HCl 0.5 mg 01/14/25 18:29 Hydromorphone Hcl Inj (*Crx) 1 Mg/Ml Syr IV PUSH Q2H PRN Breakthrough Pain Rated 4-6 or NPO Hydroxyzine HCl 25 mg 01/12/25 01:00 01/17/25 05:24 Hydroxyzine Hcl 25 Mg Tablet PO 25 mg Q4H RON Administration Albumin Human 50 mls @ 999 mls/hr 01/14/25 06:42 Albutein IVPB 02/13/25 06:41 Q10M PRN HYPOTENSION Ibuprofen 800 mg in 200 mls @ 400 mls/hr 01/14/25 18:29 Caldolor 800 Mg/200 Ml IVPB Q6H PRN Breakthrough Pain Rated 1-3 or NPO Ipratropium [place] 2 spray 01/12/25 09:00 01/16/25 08:58 Ipratropium Nasal [place] 0.03% 15 Ml Bottle NASAL 2 spray DAILY RON Administration Methadone HCl 5 mg 01/12/25 09:00 01/16/25 08:53 Methadone Hcl (*Crx) 5 Mg Tablet PO 5 mg DAILY RON Administration Miscellaneous Information 0 each 01/16/25 00:01 Recommend Dc Of Ibuprofen Since Patient On Dialysis XX 02/15/25 00:00 CLARIFY RON Morphine Sulfate 2 mg 01/11/25 19:08 01/14/25 10:24 Morphine Sulfate (*Crx) 2 Mg/Ml Inj IV PUSH 2 mg Q2H PRN Administration Pain Rated 7-10 Naloxone HCl 0.1 mg 01/14/25 18:29 Naloxone Hcl 0.4 Mg/Ml Vial IV PUSH Q2M PRN Opiate Reversal Nicotine 1 patch 01/12/25 16:10 01/16/25 08:55 Nicotine (*Pbkc) 21 Mg Patch TRANSDERM 1 patch DAILY RON Administration Nicotine Polacrilex 4 mg 01/13/25 19:53 Nicotine (*Pbkc) 4 Mg Gum PO Q2H PRN Nicotine Cravings Ondansetron HCl 4 mg 01/14/25 18:29 Ondansetron Inj 4 Mg/2 Ml Vial IV PUSH Q4H PRN Nausea And Vomiting Polyethylene Glycol 17 gm 01/15/25 09:00 01/16/25 08:56 Polyethylene Glycol 3350 17 Gm Powd.Pack PO Not Given QAM RON Ropinirole HCl 0.5 mg 01/12/25 01:00 01/16/25 20:42 Ropinirole Hcl 0.5 Mg Tablet PO 0.5 mg HS RON Administration Senna/Docusate Sodium 2 tab 01/15/25 09:00 01/16/25 17:56 Senna/Docusate Sodium Tablet PO 2 tab BID RON Administration Radiology Results: ITS Impressions Chest X-Ray 01/11/25 18:24 IMPRESSION: Mild pulmonary vascular congestion, without focal infiltrate or effusion. Hip/Pelvis X-Ray 01/11/25 18:25 IMPRESSION: Acute minimally displaced fracture of the right femoral neck, as detailed above. Knee X-Ray 01/11/25 18:27 IMPRESSION: Degenerative disease without acute fracture. Labs Labs: Laboratory Results - last 24 hr 01/16/25 01/16/25 07:51 13:39 WBC 8.2 RBC 2.96 L Hgb 10.1 L Hct 33.1 L MCV 111.8 H MCH 34.1 H MCHC 30.5 L RDW 15.4 H Plt Count 128 L MPV 11.1 H Sodium 137 Potassium 4.4 Chloride 100 Carbon Dioxide 26 Anion Gap 11 BUN 29 H D Creatinine 4.90 H Estim Creat Clear Calc 8 Estimated GFR 9 L Glucose 111 H Calcium 9.7 Nasal MRSA (PCR) Not detected Quality VTE Prophylaxis VTE prophylaxis: mechanical ordered (SCDs) and pharmacologic ordered
--- NOTE | 2025-01-17 09:15 | PM.PNORT ---
Progress Note: A&P Assessment and Plan (1) Femoral neck fracture: Qualifiers: Encounter type: initial encounter Fracture type: closed Laterality: right Qualified Code(s): S72.001A - Fracture of unspecified part of neck of right femur, initial encounter for closed fracture Code(s): S72.009A - Fracture of unspecified part of neck of unspecified femur, initial encounter for closed fracture Status: Acute Assessment and Plan: POD #2: PERCUTANEOUS PINNING RIGHT FEMORAL NECK FRACTURE Continue PT/OT. TTWB. Walker. HIGH FALL RISK. Continue pain control. Ice Hip. Protect skin. DVT prophylaxis with Heparin. SCDs. Incentive Spirometry Use reviewed. Monitor Dressing. Change prior to discharge. Bowel Regimen. Dispo: SNF pending progress with PT/OT Plan Reviewed history, exam, radiographs and current labs with attending MD and covering surgeon, Dr. Jarquin, who agrees with current plan as indicated above. No further recommendations from Dr. Jarquin at this time. Subjective Subjective Date/Time Seen: 01/17/25 09:15 Post Op day: 2 Interval history: POD #2: PERCUTANEOUS PINNING RIGHT FEMORAL NECK FRACTURE Patient doing well. Increased pain today. Review of Systems Review of Systems: All systems reviewed & are unremarkable except as noted in HPI and below Exam Const: General: comfortable and no acute distress Resp: Effort & Inspection: normal respiratory effort Cardio: Rate: regular rate Rhythm: regular rhythm GI: Inspection: non-distended Skin: General skin exam: normal color Other: Incision right hip c/d/i. Surrounding tissue without redness/warmth. Mild swelling consistent with recent surgery. No drainage. Neuro: Cognition (Neuro): normal cognition Speech: normal speech Extrem: Right lower extremity: normal to inspection, normal capillary refill, hip/thigh Details: tenderness Location: of the hip (Thigh soft ) Location: laterally and anteriorly, swelling Location: at the hip, abnormal ROM (limited consistent with recent surgery ) Details: pain with active ROM during and pain with passive ROM during and other (Incision c/d/i. ); no deformity and no unusual warmth, knee Details: normal to inspection; no tenderness and no swelling, lower leg (Negative Moe's Sign ) Details: normal to inspection and no edema; no tenderness, ankle (+ankle dorsiflexion/plantarflexion) Details: normal to inspection and no edema; no tenderness, no swelling and no ecchymosis and foot Details: normal capillary refill, toes with normal ROM, vascular exam Details: dorsalis pedis pulse present and motor-sensory exam Details: light-touch normal; no tenderness Objective Data Vital Signs Vital Signs: Vital Signs - 24 hr 01/16/25 09:30 01/16/25 09:49 01/16/25 09:49 Temperature 36.5 C Pulse Rate 90 91 Respiratory Rate 18 Blood Pressure 85/48 L 94/60 L Pulse Oximetry 97 Oxygen Delivery Oxygen Flow Rate 4 01/16/25 10:00 01/16/25 10:15 01/16/25 10:30 Temperature Pulse Rate 102 H 61 64 Respiratory Rate Blood Pressure 87/53 L 97/58 L 100/64 Pulse Oximetry Oxygen Delivery Oxygen Flow Rate 01/16/25 10:45 01/16/25 11:00 01/16/25 11:15 Temperature Pulse Rate 94 96 96 Respiratory Rate Blood Pressure 92/57 L 106/65 103/63 Pulse Oximetry Oxygen Delivery Oxygen Flow Rate 01/16/25 11:30 01/16/25 11:45 01/16/25 12:00 Temperature Pulse Rate 97 94 100 Respiratory Rate Blood Pressure 116/67 105/58 L 113/66 Pulse Oximetry Oxygen Delivery Oxygen Flow Rate 01/16/25 12:15 01/16/25 12:35 01/16/25 12:45 Temperature 36.8 C Pulse Rate 100 111 H 20 L Respiratory Rate 20 Blood Pressure 114/74 98/77 L 90/52 L Pulse Oximetry 100 Oxygen Delivery Oxygen Flow Rate 01/16/25 14:18 01/16/25 20:25 01/16/25 20:42 Temperature 36.3 C L 37.3 C Pulse Rate 93 91 Respiratory Rate 14 20 Blood Pressure 112/56 L 123/64 Pulse Oximetry 100 100 100 Oxygen Delivery Nasal Cannula Oxygen Flow Rate 4 01/17/25 00:50 01/17/25 05:10 Temperature 36.5 C 36.6 C Pulse Rate 88 89 Respiratory Rate 20 20 Blood Pressure 99/56 L 110/62 Pulse Oximetry 100 100 Oxygen Delivery Oxygen Flow Rate Intake/Output Intake/Output: Intake & Output 01/14/25 01/15/25 01/16/25 01/17/25 23:59 23:59 23:59 23:59 Intake Total 450 527 287 50 Output Total 920 500 750 450 Balance -470 99 -934 -695 Meds/Results Medications: Active Medications Generic Name Dose Route Start Last Admin Trade Name Freq PRN Reason Stop Dose Admin Albuterol 2 puff 01/14/25 18:29 Albuterol Sulfate (*Sp) Aerosol 1 Puff INHALATION Q3HRT PRN shortness of breath or wheezing Albuterol/Ipratropium 3 ml 01/11/25 20:51 01/14/25 13:59 Ipratropium 0.5 Mg/Albuterol Sulfate 2.5 Mg Ampul.Neb 3 Ml INHALATION 3 ml Q6HRT PRN Administration Shortness Of Breath Clonazepam 0.5 mg 01/12/25 09:00 01/16/25 20:42 Clonazepam (*Crx) 0.5 Mg Tablet PO 0.5 mg QID RON Administration Diazepam 5 mg 01/14/25 18:29 01/17/25 05:25 Diazepam (*Crx) 5 Mg Tablet PO 5 mg Q8H PRN Administration Muscle Spasm Diphenhydramine HCl 25 mg 01/13/25 15:00 01/14/25 08:34 Diphenhydramine Hcl Cap 25 Mg Capsule PO 25 mg Q6H PRN Administration Itching Duloxetine HCl 20 mg 01/12/25 01:00 Duloxetine Hcl 20 Mg Capsule.Dr [employer] sofia [facility] Hydromorphone HCl 4 mg 01/11/25 22:08 01/17/25 05:24 Hydromorphone Hcl (*Crx) 4 Mg Tablet PO 4 mg Q4H PRN Administration Pain Rated 7-10 Hydromorphone HCl 1 mg 01/14/25 18:29 01/15/25 00:27 Hydromorphone Hcl Inj (*Crx) 1 Mg/Ml Syr IV PUSH 1 mg Q2H PRN Administration Breakthrough Pain Rated 7-10 or NPO Hydromorphone HCl 0.5 mg 01/14/25 18:29 Hydromorphone Hcl Inj (*Crx) 1 Mg/Ml Syr IV PUSH Q2H PRN Breakthrough Pain Rated 4-6 or NPO Hydroxyzine HCl 25 mg 01/12/25 01:00 01/17/25 05:24 Hydroxyzine Hcl 25 Mg Tablet PO 25 mg Q4H RON Administration Albumin Human 50 mls @ 999 mls/hr 01/14/25 06:42 Albutein IVPB 02/13/25 06:41 Q10M PRN HYPOTENSION Ibuprofen 800 mg in 200 mls @ 400 mls/hr 01/14/25 18:29 Caldolor 800 Mg/200 Ml IVPB Q6H PRN Breakthrough Pain Rated 1-3 or NPO Ipratropium [place] 2 spray 01/12/25 09:00 01/16/25 08:58 Ipratropium Nasal [place] 0.03% 15 Ml Bottle NASAL 2 spray DAILY RON Administration Methadone HCl 5 mg 01/12/25 09:00 01/16/25 08:53 Methadone Hcl (*Crx) 5 Mg Tablet PO 5 mg DAILY RON Administration Miscellaneous Information 0 each 01/16/25 00:01 Recommend Dc Of Ibuprofen Since Patient On Dialysis XX 02/15/25 00:00 CLARIFY RON Morphine Sulfate 2 mg 01/11/25 19:08 01/14/25 10:24 Morphine Sulfate (*Crx) 2 Mg/Ml Inj IV PUSH 2 mg Q2H PRN Administration Pain Rated 7-10 Naloxone HCl 0.1 mg 01/14/25 18:29 Naloxone Hcl 0.4 Mg/Ml Vial IV PUSH Q2M PRN Opiate Reversal Nicotine 1 patch 01/12/25 16:10 01/16/25 08:55 Nicotine (*Pbkc) 21 Mg Patch TRANSDERM 1 patch DAILY RON Administration Nicotine Polacrilex 4 mg 01/13/25 19:53 Nicotine (*Pbkc) 4 Mg Gum PO Q2H PRN Nicotine Cravings Ondansetron HCl 4 mg 01/14/25 18:29 Ondansetron Inj 4 Mg/2 Ml Vial IV PUSH Q4H PRN Nausea And Vomiting Polyethylene Glycol 17 gm 01/15/25 09:00 01/16/25 08:56 Polyethylene Glycol 3350 17 Gm Powd.Pack PO Not Given QAM RON Ropinirole HCl 0.5 mg 01/12/25 01:00 01/16/25 20:42 Ropinirole Hcl 0.5 Mg Tablet PO 0.5 mg HS RON Administration Senna/Docusate Sodium 2 tab 01/15/25 09:00 01/16/25 17:56 Senna/Docusate Sodium Tablet PO 2 tab BID RON Administration Radiology Results: ITS Impressions Chest X-Ray 01/11/25 18:24 IMPRESSION: Mild pulmonary vascular congestion, without focal infiltrate or effusion. Hip/Pelvis X-Ray 01/11/25 18:25 IMPRESSION: Acute minimally displaced fracture of the right femoral neck, as detailed above. Knee X-Ray 01/11/25 18:27 IMPRESSION: Degenerative disease without acute fracture. Labs Labs: Laboratory Results - last 24 hr 01/16/25 13:39 Nasal MRSA (PCR) Not detected
[2025-01-17 09:45] LABS: Hematocrit 33.1 % (37.0-47.0); Hemoglobin 10.3 g/dL (12.0-15.0); Mean Corpuscular HGB Conc 31.1 g/dl (32-36); Mean Corpuscular Hemoglobin 34.1 pg (26-34); Mean Corpuscular Volume 109.6 fl (80-100); Mean Platelet Volume 11.6 fl (7.4-10.4); Platelet Count Result 130 k/mm3 (150-375); Red Blood Count 3.02 M/mm3 (4.2-5.4); Red Cell Distribution Width 15.7 % (11.5-14.5); White Blood Count 6.3 K/mm3 (4.5-10.0)
[2025-01-17 09:56] LABS: Anion Gap 10 mmol/L (4-12); Blood Urea Nitrogen 16 mg/dL (7-17); Calcium 9.9 mg/dL (8.4-10.2); Carbon Dioxide 27 mmol/L (22-30); Chloride 101 mmol/L (98-107); Estimated CRCL calculation 11 ml/min; Estimated Glomerular Filt Rate 13; Glucose 140 mg/dL (65-110); Potassium 3.5 mmol/L (3.4-5.0); Sodium 138 mmol/L (137-145)
[2025-01-17] MEDS: methADONE HCL (*CRX) 5 MG TABLET PO (10:21)
[2025-01-17] MEDS: SENNA/DOCUSATE SODIUM TABLET 2 TAB PO ×2 (10:22→17:16)
[2025-01-17] MEDS: clonazePAM (*CRX) 0.5 MG TABLET PO ×4 (10:22→21:38)
[2025-01-17] MEDS: polyethylene glycoL 3350 17 GM POWD.PACK PO (10:22)
[2025-01-17] MEDS: NICOTINE (*PBKC) 21 MG PATCH 1 PATCH TRANSDERM (10:25)
[2025-01-17] MEDS: IPRATROPIUM NASAL SPRAY 0.03% 15 ML BOTTLE 2 SPRAY NASAL (10:25)
--- NOTE | 2025-01-17 13:34 | P.PNNP_ITS ---
Subjective Date/time seen: 01/17/25 13:34 Interval history: Follow-up for end stage renal disease on hemodialysis. Tolerated dialysis treatment yesterday but ended treatment 15 minutes earlier (she demanded to be taken off dialysis); Objective Data Vital Signs Vital Signs: Vital Signs Temp Pulse Resp BP Pulse Ox O2 Del Method O2 Flow Rate 01/17/25 12:00 97.8 F 86 18 109/51 L 100 01/17/25 05:10 97.8 F 89 20 110/62 100 01/17/25 00:50 97.7 F 88 20 99/56 L 100 01/16/25 20:42 100 Nasal Cannula 4 01/16/25 20:25 99.2 F 91 20 123/64 100 Intake/Output Intake/Output: Intake & Output 01/14/25 01/15/25 01/16/25 01/17/25 23:59 23:59 23:59 23:59 Intake Total 450 527 287 50 Output Total 920 500 750 450 Balance -470 13 -662 -400 Meds/Results Medications: Active Medications Generic Name Dose Route Start Last Admin Trade Name Freq PRN Reason Stop Dose Admin Albuterol 2 puff 01/14/25 18:29 Albuterol Sulfate (*Sp) Aerosol 1 Puff INHALATION Q3HRT PRN shortness of breath or wheezing Albuterol/Ipratropium 3 ml 01/11/25 20:51 01/14/25 13:59 Ipratropium 0.5 Mg/Albuterol Sulfate 2.5 Mg Ampul.Neb 3 Ml INHALATION 3 ml Q6HRT PRN Administration Shortness Of Breath Clonazepam 0.5 mg 01/12/25 09:00 01/17/25 12:53 Clonazepam (*Crx) 0.5 Mg Tablet PO 0.5 mg QID RON Administration Diazepam 5 mg 01/14/25 18:29 01/17/25 05:25 Diazepam (*Crx) 5 Mg Tablet PO 5 mg Q8H PRN Administration Muscle Spasm Diphenhydramine HCl 25 mg 01/13/25 15:00 01/14/25 08:34 Diphenhydramine Hcl Cap 25 Mg Capsule PO 25 mg Q6H PRN Administration Itching Duloxetine HCl 20 mg 01/12/25 01:00 Duloxetine Hcl 20 Mg Capsule.Dr PO .dialy RON Hydromorphone HCl 4 mg 01/11/25 22:08 01/17/25 05:24 Hydromorphone Hcl (*Crx) 4 Mg Tablet PO 4 mg Q4H PRN Administration Pain Rated 7-10 Hydromorphone HCl 1 mg 01/14/25 18:29 01/15/25 00:27 Hydromorphone Hcl Inj (*Crx) 1 Mg/Ml Syr IV PUSH 1 mg Q2H PRN Administration Breakthrough Pain Rated 7-10 or NPO Hydromorphone HCl 0.5 mg 01/14/25 18:29 Hydromorphone Hcl Inj (*Crx) 1 Mg/Ml Syr IV PUSH Q2H PRN Breakthrough Pain Rated 4-6 or NPO Hydroxyzine HCl 25 mg 01/12/25 01:00 01/17/25 12:53 Hydroxyzine Hcl 25 Mg Tablet PO 25 mg Q4H RON Administration Albumin Human 50 mls @ 999 mls/hr 01/14/25 06:42 Albutein IVPB 02/13/25 06:41 Q10M PRN HYPOTENSION Ibuprofen 800 mg in 200 mls @ 400 mls/hr 01/14/25 18:29 Caldolor 800 Mg/200 Ml IVPB Q6H PRN Breakthrough Pain Rated 1-3 or NPO Ipratropium [place] 2 spray 01/12/25 09:00 01/17/25 10:25 Ipratropium Nasal [place] 0.03% 15 Ml Bottle NASAL 2 spray DAILY RON Administration Methadone HCl 5 mg 01/12/25 09:00 01/17/25 10:21 Methadone Hcl (*Crx) 5 Mg Tablet PO 5 mg DAILY RON Administration Miscellaneous Information 0 each 01/16/25 00:01 Recommend Dc Of Ibuprofen Since Patient On Dialysis XX 02/15/25 00:00 CLARIFY [facility] Morphine Sulfate 2 mg 01/11/25 19:08 01/14/25 10:24 Morphine Sulfate (*Crx) 2 Mg/Ml Inj IV PUSH 2 mg Q2H PRN Administration Pain Rated 7-10 Naloxone HCl 0.1 mg 01/14/25 18:29 Naloxone Hcl 0.4 Mg/Ml Vial IV PUSH Q2M PRN Opiate Reversal Nicotine 1 patch 01/12/25 16:10 01/17/25 10:25 Nicotine (*Pbkc) 21 Mg Patch TRANSDERM 1 patch DAILY RON Administration Nicotine Polacrilex 4 mg 01/13/25 19:53 Nicotine (*Pbkc) 4 Mg Gum PO Q2H PRN Nicotine Cravings Ondansetron HCl 4 mg 01/14/25 18:29 Ondansetron Inj 4 Mg/2 Ml Vial IV PUSH Q4H PRN Nausea And Vomiting Polyethylene Glycol 17 gm 01/15/25 09:00 01/17/25 10:22 Polyethylene Glycol 3350 17 Gm Powd.Pack PO 17 gm QAM RON Administration Ropinirole HCl 0.5 mg 01/12/25 01:00 01/16/25 20:42 Ropinirole Hcl 0.5 Mg Tablet PO 0.5 mg HS RON Administration Senna/Docusate Sodium 2 tab 01/15/25 09:00 01/17/25 10:22 Senna/Docusate Sodium Tablet PO 2 tab BID RON Administration Radiology Results: ITS Impressions Chest X-Ray 01/11/25 18:24 IMPRESSION: Mild pulmonary vascular congestion, without focal infiltrate or effusion. Hip/Pelvis X-Ray 01/11/25 18:25 IMPRESSION: Acute minimally displaced fracture of the right femoral neck, as detailed above. Knee X-Ray 01/11/25 18:27 IMPRESSION: Degenerative disease without acute fracture. Labs Labs: Laboratory Results - last 24 hr 01/16/25 01/17/25 13:39 09:36 WBC 6.3 RBC 3.02 L Hgb 10.3 L Hct 33.1 L MCV 109.6 H MCH 34.1 H MCHC 31.1 L RDW 15.7 H Plt Count 130 L MPV 11.6 H Sodium 138 Potassium 3.5 Chloride 101 Carbon Dioxide 27 Anion Gap 10 BUN 16 D Creatinine 3.45 H Estim Creat Clear Calc 11 Estimated GFR 13 L Glucose 140 H Calcium 9.9 Nasal MRSA (PCR) Not detected
[2025-01-17] MEDS: rOPINIRole HCL 0.5 MG TABLET PO (21:38)
[2025-01-17] MEDS: APIXABAN 2.5 MG TABLET PO (21:38)
[2025-01-18] VITALS (19 sets, daily range): BP systolic 80–115; BP diastolic 45–68; PULSE 74–101; RESP 16–20; TEMP 36.5–37; O2SAT 98–100
[2025-01-18] MEDS: hydrOXYzine HCL 25 MG TABLET PO ×3 (00:57→14:41)
[2025-01-18] MEDS: HYDROmorphone HCL (*CRX) 4 MG TABLET PO ×2 (01:00→09:33)
[2025-01-18 07:20] LABS: Hematocrit 35.7 % (37.0-47.0); Hemoglobin 10.9 g/dL (12.0-15.0); Mean Corpuscular HGB Conc 30.5 g/dl (32-36); Mean Corpuscular Hemoglobin 33.6 pg (26-34); Mean Corpuscular Volume 110.2 fl (80-100); Mean Platelet Volume 11.3 fl (7.4-10.4); Platelet Count Result 142 k/mm3 (150-375); Red Blood Count 3.24 M/mm3 (4.2-5.4); Red Cell Distribution Width 15.9 % (11.5-14.5); White Blood Count 7.1 K/mm3 (4.5-10.0)
[2025-01-18 07:44] LABS: Anion Gap 11 mmol/L (4-12); Blood Urea Nitrogen 33 mg/dL (7-17); Carbon Dioxide 28 mmol/L (22-30); Chloride 100 mmol/L (98-107); Estimated CRCL calculation 7 ml/min; Estimated Glomerular Filt Rate 8; Glucose 88 mg/dL (65-110); Potassium 4.2 mmol/L (3.4-5.0); Sodium 139 mmol/L (137-145)
--- NOTE | 2025-01-18 07:44 | PM.IMPN ---
Progress Note: A&P Assessment and Plan (1) Chronic narcotic use: Code(s): F11.90 - Opioid use, unspecified, uncomplicated Status: Acute Assessment and Plan: Patient had her first prescription of methadone 10 mg [place] 01/09, [place] She states that she did not take this medication at home. She was started on 5 mg daily on admission. Will wean her to 2.5 mg daily and continue to wean patient off of methadone. Patient was to be discharged to SNF however they cannot take methadone as they will not receive the medication in time. Will also adjust her PRN dilaud[place] she is to take this q6H as needed. (2) Femoral neck fracture: Qualifiers: Encounter type: initial encounter Fracture type: closed Laterality: right Qualified Code(s): S72.001A - Fracture of unspecified part of neck of right femur, initial encounter for closed fracture Code(s): S72.009A - Fracture of unspecified part of neck of unspecified femur, initial encounter for closed fracture Status: Acute Assessment and Plan: Patient reports tripping in her kitchen and falling on her right side resulting in right hip pain. Not on anticoagulation. - Hip/pelvis XR: Acute minimally displaced fracture of the right femoral neck, as detailed above. - Knee XR: Degenerative disease without acute fracture. - Continue patients home pain medication: methadone and p.o. Dilaudid as needed. For pain 7-10 IV Dilaudid as needed. Narcan as needed as patient is on several narcotics - Anticoagulation: Eliquis 2.5 mg BID Spoke with nephrology and ortho and all are in agreement with this anticoagulation - PT/OT per ortho: Toe touch weight bearing Recommending placement - Ortho consulted s/p percutaneous pinning of right femoral neck fracture on 01/[address] holloway (3) End-stage renal disease on hemodialysis: Code(s): N18.6 - End stage renal disease; Z99.2 - Dependence on renal dialysis Status: Acute Assessment and Plan: Patient has end-stage renal disease, receives HD on //Mon. - Nephrology consulted for HD (4) Chronic hypoxic respiratory failure, on home oxygen therapy: Code(s): J96.11 - Chronic respiratory failure with hypoxia; Z99.81 - Dependence on supplemental oxygen Status: Chronic Assessment and Plan: Chronically on 4-6 L NC secondary to COPD. - Continue home oxygen supplementation - Will provide p.r.n. DuoNebs. - Will continue patient's home inhalers. (5) Protein-calorie malnutrition, severe: Code(s): E43 - Unspecified severe protein-calorie malnutrition Status: Acute Assessment and Plan: Supplement per nutrition recommendations (6) Bipolar disorder: Qualifiers: Active/Remission status: remission status unspecified Qualified Code(s): F31.9 - Bipolar disorder, unspecified Code(s): F31.9 - Bipolar disorder, unspecified Status: Chronic Assessment and Plan: Chronic continue home medications (7) Tobacco abuse disorder: Code(s): Z72.0 - Tobacco use Status: Acute Assessment and Plan: Encouraged smoking cessation Subjective Date/time seen: 01/18/25 07:44 Interval history: 64-year-old female with a past medical history of end-stage renal disease on hemodialysis, COPD on chronic home O2, colostomy and prior left hip fracture with surgical repair who presented to the ER after tripping in her kitchen and falling resulting in right hip pain. Review of Systems Review of Systems: All systems reviewed & are unremarkable except as noted in HPI and below Exam Narrative: AF HR General: female in no acute respiratory distress who is nontoxic appearing, lying semi recumbent in bed. Chest: Lungs are clear to auscultation bilaterally. No wheezes or crackles. CV: Heart was regular rate and rhythm. S1-S2. No murmurs, gallops, or rubs. Abd: Abdomen was soft. Nontender. Nondistended. Positive bowel sounds. Ext: No clubbing, cyanosis. 2+ DP pulses bilaterally. Sensation intact, wiggling toes. Mild edema to the right hip. Neuro: Patient is alert. Speech is clear. Objective Data Vital Signs Vital Signs: Vital Signs - 24 hr 01/17/25 07:50 01/17/25 12:00 01/17/25 16:00 Temperature 97.8 F 98.5 F Pulse Rate 86 82 Respiratory Rate 18 18 18 Blood Pressure 109/51 L 81/54 L Pulse Oximetry 100 100 100 Oxygen Delivery Nasal Cannula Oxygen Flow Rate 4 01/17/25 20:00 01/17/25 21:38 01/17/25 23:40 Temperature 99.1 F 98.1 F Pulse Rate 79 81 Respiratory Rate 16 20 Blood Pressure 101/75 135/71 Pulse Oximetry 100 100 100 Oxygen Delivery Nasal Cannula Oxygen Flow Rate 4 01/18/25 04:45 Temperature 98.2 F Pulse Rate 79 Respiratory Rate 20 Blood Pressure 112/68 Pulse Oximetry 100 Oxygen Delivery Oxygen Flow Rate Intake/Output Intake/Output: Intake & Output 01/15/25 01/16/25 01/17/25 01/18/25 23:59 23:59 23:59 23:59 Intake Total 932 033 0555 350 Output Total 500 750 550 550 Balance 27 -463 476 -200 Meds/Results Medications: Active Medications Generic Name Dose Route Start Last Admin Trade Name Freq PRN Reason Stop Dose Admin Albuterol 2 puff 01/14/25 18:29 Albuterol Sulfate (*Sp) Aerosol 1 Puff INHALATION Q3HRT PRN shortness of breath or wheezing Albuterol/Ipratropium 3 ml 01/11/25 20:51 01/14/25 13:59 Ipratropium 0.5 Mg/Albuterol Sulfate 2.5 Mg Ampul.Neb 3 Ml INHALATION 3 ml Q6HRT PRN Administration Shortness Of Breath Apixaban 2.5 mg 01/17/25 21:00 01/17/25 21:38 Apixaban 2.5 Mg Tablet PO 2.5 mg Q12HR RON Administration Clonazepam 0.5 mg 01/12/25 09:00 01/17/25 21:38 Clonazepam (*Crx) 0.5 Mg Tablet PO 0.5 mg QID RON Administration Diazepam 5 mg 01/14/25 18:29 01/17/25 05:25 Diazepam (*Crx) 5 Mg Tablet PO 5 mg Q8H PRN Administration Muscle Spasm Diphenhydramine HCl 25 mg 01/13/25 15:00 01/14/25 08:34 Diphenhydramine Hcl Cap 25 Mg Capsule PO 25 mg Q6H PRN Administration Itching Duloxetine HCl 20 mg 01/12/25 01:00 Duloxetine Hcl 20 Mg Capsule.Dr RAF sofia [facility] Epoetin Casey-epbx 10,000 units 01/18/25 14:00 Epoetin Casey-Epbx 10,000 Units/Ml Vial IV PUSH 01/18/25 14:01 ONCE ONE Hydromorphone HCl 4 mg 01/17/25 14:48 01/18/25 01:00 Hydromorphone Hcl (*Crx) 4 Mg Tablet PO 4 mg Q6H PRN Administration Pain Rated 7-10 Hydroxyzine HCl 25 mg 01/12/25 01:00 01/18/25 05:44 Hydroxyzine Hcl 25 Mg Tablet PO 25 mg Q4H RON Administration Albumin Human 50 mls @ 999 mls/hr 01/14/25 06:42 Albutein IVPB 02/13/25 06:41 Q10M PRN HYPOTENSION Sodium Chloride 1,000 mls @ 999 mls/hr 01/18/25 07:19 Normal Saline Iv IV CONT 01/18/25 08:19 .Q1H1M ONE Ipratropium [place] 2 spray 01/12/25 09:00 01/17/25 10:25 Ipratropium Nasal [place] 0.03% 15 Ml Bottle NASAL 2 spray DAILY RON Administration Methadone HCl 2.5 mg 01/18/25 09:00 Methadone Hcl (*Crx) 2.5 Mg Tablet PO DAILY RON Morphine Sulfate 2 mg 01/11/25 19:08 01/14/25 10:24 Morphine Sulfate (*Crx) 2 Mg/Ml Inj IV PUSH 2 mg Q2H PRN Administration Pain Rated 7-10 Naloxone HCl 0.1 mg 01/14/25 18:29 Naloxone Hcl 0.4 Mg/Ml Vial IV PUSH Q2M PRN Opiate Reversal Nicotine 1 patch 01/12/25 16:10 01/17/25 10:25 Nicotine (*Pbkc) 21 Mg Patch TRANSDERM 1 patch DAILY RON Administration Nicotine Polacrilex 4 mg 01/13/25 19:53 Nicotine (*Pbkc) 4 Mg Gum PO Q2H PRN Nicotine Cravings Ondansetron HCl 4 mg 01/14/25 18:29 Ondansetron Inj 4 Mg/2 Ml Vial IV PUSH Q4H PRN Nausea And Vomiting Polyethylene Glycol 17 gm 01/15/25 09:00 01/17/25 10:22 Polyethylene Glycol 3350 17 Gm Powd.Pack PO 17 gm QAM RON Administration Ropinirole HCl 0.5 mg 01/12/25 01:00 01/17/25 21:38 Ropinirole Hcl 0.5 Mg Tablet PO 0.5 mg HS RON Administration Senna/Docusate Sodium 2 tab 01/15/25 09:00 01/17/25 17:16 Senna/Docusate Sodium Tablet PO 2 tab BID RON Administration Radiology Results: ITS Impressions Chest X-Ray 01/11/25 18:24 IMPRESSION: Mild pulmonary vascular congestion, without focal infiltrate or effusion. Hip/Pelvis X-Ray 01/11/25 18:25 IMPRESSION: Acute minimally displaced fracture of the right femoral neck, as detailed above. Knee X-Ray 01/11/25 18:27 IMPRESSION: Degenerative disease without acute fracture. Labs Labs: Laboratory Results - last 24 hr 01/17/25 01/18/25 09:36 07:13 WBC 6.3 7.1 RBC 3.02 L 3.24 L Hgb 10.3 L 10.9 L Hct 33.1 L 35.7 L MCV 109.6 H 110.2 H MCH 34.1 H 33.6 MCHC 31.1 L 30.5 L RDW 15.7 H 15.9 H Plt Count 130 L 142 L MPV 11.6 H 11.3 H Sodium 138 139 Potassium 3.5 4.2 Chloride 101 100 Carbon Dioxide 27 28 Anion Gap 10 11 BUN 16 D 33 H D Creatinine 3.45 H 5.33 H Estim Creat Clear Calc 11 7 Estimated GFR 13 L 8 L Glucose 140 H 88 Calcium 9.9 10.0 Quality VTE Prophylaxis VTE prophylaxis: mechanical ordered (SCDs) and pharmacologic ordered
[2025-01-18] MEDS: SENNA/DOCUSATE SODIUM TABLET 2 TAB PO (08:55)
[2025-01-18] MEDS: methADONE HCL (*CRX) 2.5 MG TABLET PO (08:55)
[2025-01-18] MEDS: APIXABAN 2.5 MG TABLET PO (08:55)
[2025-01-18] MEDS: clonazePAM (*CRX) 0.5 MG TABLET PO ×2 (08:55→14:38)
[2025-01-18] MEDS: polyethylene glycoL 3350 17 GM POWD.PACK PO (08:56)
[2025-01-18] MEDS: ALBUMIN HUMAN 25% 12.5 GM/50ML 50 ML IVPB ×3 (10:39→11:54)
--- NOTE | 2025-01-18 10:50 | PC.NURSE ---
after pt went to dialysis, this pt roommate told this nurse that she thought she heard pill bottles rattling from this pt. roommate stated that she believes pt has meds in her drawer. this nurse looked in pt drawer on her bedside table and found a pill bottle of PO dilaudid and also a pill bottle of not controlled medication. This nurse confiscated the bottles and took them to charge nurse. this rn and charge counted the dilaudid, put them back into the pill bottle and locked them in the narcotics drawer along with pt sticker. provider has been notified.
--- NOTE | 2025-01-18 11:52 | P.DS_ITS ---
DS: Admitting Diagnosis Discharge Date 01/18/2025 Admitting Diagnosis chronic narcotic use femoral neck fracture ESRD on HD Chronic hypoxic respiratory failure Protein calorie malnutrition Bipolar Tobacco use DS: Discharge Diagnosis Discharge Diagnosis (1) Chronic narcotic use: Code(s): F11.90 - Opioid use, unspecified, uncomplicated Status: Acute (2) Femoral neck fracture: Qualifiers: Encounter type: initial encounter Fracture type: closed Laterality: right Qualified Code(s): S72.001A - Fracture of unspecified part of neck of right femur, initial encounter for closed fracture Code(s): S72.009A - Fracture of unspecified part of neck of unspecified femur, initial encounter for closed fracture Status: Acute (3) End-stage renal disease on hemodialysis: Code(s): N18.6 - End stage renal disease; Z99.2 - Dependence on renal dialysis Status: Acute (4) Chronic hypoxic respiratory failure, on home oxygen therapy: Code(s): J96.11 - Chronic respiratory failure with hypoxia; Z99.81 - Dependence on supplemental oxygen Status: Chronic (5) Protein-calorie malnutrition, severe: Code(s): E43 - Unspecified severe protein-calorie malnutrition Status: Acute (6) Bipolar disorder: Qualifiers: Active/Remission status: remission status unspecified Qualified Code(s): F31.9 - Bipolar disorder, unspecified Code(s): F31.9 - Bipolar disorder, unspecified Status: Chronic (7) Tobacco abuse disorder: Code(s): Z72.0 - Tobacco use Status: Acute DS: Summary Hospital Course Reason for hospitalization: chronic narcotic use femoral neck fracture ESRD on HD Chronic hypoxic respiratory failure Protein calorie malnutrition Bipolar Tobacco use Hospital Course: 64-year-old female with a past medical history of end-stage renal disease on hemodialysis, COPD on chronic home O2, colostomy and prior left hip fracture with surgical repair who presented to the ER after tripping in her kitchen resulting in right hip pain. Chest XR showed mild pulmonary vascular congestion, without focal infiltrate or effusion. Hip/pelvis XR showed acute minimally displaced fracture of the right femoral neck. Knee XR showed degenerative disease without acute fracture. Ortho consulted and patient underwent percutaneous pinning of right femoral neck fracture on 01/[address] jarquin. She was started on Eliquis 2.5 mg BID for DVT ppx per nephrology recommendations and ortho agreed. She worked with therapy following surgery with toe touch weigh t bearing who recommended placement. During admission RN found patients home Dilaudid at the bedside. This dose was filled with 60 pills on 01/09 and 34 remain per RN meaning that patient was taking her home pills during admission on top of the hospital medication. Despite the increased doses patient remained alert and oriented with stable oxygen saturations on her home oxygen. The home medication was taken out of her room at that time and placed in the safe. Discussed patient with Dr. Ram and was able to wean patient off of her methadone during her admission as she has only been on this medication during her stay and was at a low dose of 5 mg to 2.5 mg. At discharge patient is to continue her home dose of dilaudid PRN and lidocaine for pain. At time of discharge patient had no complaints denying chest pain, shortness of breath, palpitations, nausea/vomiting and abdominal pain. Patient discharged to SNF in a stable condition. She is to follow up her primary care provider in 1 week and Ortho as scheduled. Status at Discharge Functional status at discharge: uses cane/walker Time Spent with Patient Time attestation: Total time spent providing and/or coordinating discharge services: Time spent: Greater than 30 minutes Exam Narrative: AF HR 79 RR 20 SpO2 100 4L NC (baseline) BP 112/68 General: female in no acute respiratory distress who is nontoxic appearing, sitting up in bed Chest: Lungs are clear to auscultation bilaterally. No wheezes or crackles. CV: Heart was regular rate and rhythm. S1-S2. No murmurs, gallops, or rubs. Abd: Abdomen was soft. Nontender. Nondistended. Positive bowel sounds. Ext: No clubbing, cyanosis. 2+ DP pulses bilaterally. Sensation intact, wiggling toes. Mild edema to the right hip. Neuro: Patient is alert. Speech is clear. DS: Data Data Completed and Pending Completed studies during hospitalization: chest XR Knee XR Hip/pelvis XR Chest XR Labs on day of discharge: Labs from last 24 hours 01/18/25 07:13 WBC 7.1 RBC 3.24 L Hgb 10.9 L Hct 35.7 L MCV 110.2 H MCH 33.6 MCHC 30.5 L RDW 15.9 H Plt Count 142 L MPV 11.3 H Sodium 139 Potassium 4.2 Chloride 100 Carbon Dioxide 28 Anion Gap 11 BUN 33 H D Creatinine 5.33 H Estim Creat Clear Calc 7 Estimated GFR 8 L Glucose 88 Calcium 10.0 Discharge Plan Discharge Attending physician on discharge: Criselda Ram Consulting providers: Sunshine Zuleta; Wilbur Jarquin; Armando Rebollar Discharging Clinician: Sunshine Zuleta Anticipated Discharge Date/Time: 01/17/25 11:34 Patient Disposition: SNF Activity: may shower, no driving and follow weight bearing status Diet: as tolerated and renal Wound Care Instructions: follow printed instructions Discharge Instructions: Discharge disposition: Postoperative Hip Fracture Instructions Dr. Wilbur Jarquin [phone] * Dressing to be changed daily with an island dressing beginning on post op day #2. May stop dressing changes at post op day #14. Joseph to be removed on post op day #14 * Weight bearing: Toe-touch weight bearing. * You may shower with your dressing but do not submerge in a bath tub. * Do not drive or operate machinery until you are released by your surgeon. * Do not walk without a walker for any reason until you are released by your surgeon. * DVT prophylaxis x28 days post op. Strict bleeding precautions since you are being started on eliquis including shaving with an electric razor, holding pressure for greater than 20 minutes for injury, protection of had with any falls, etc. * Continue to apply ice to the hip intermittently for additional pain relief. Protect your skin with a towel or pillow case. * Continue to follow strict hip fracture precautions. * Please contact our office with any questions/concerns regarding your hip at [phone]. * Follow up appointment instructions indicated below. 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 She has been weaned off of the methadone during admission She is to continue her Dilaudid PO as prescribed, she has her home medication Narcan has been ordered given her narcotic use Monitor patients oxygen and neuro status on these medications Continue HD as scheduled on //mon Monitor blood pressures Take caution while standing, rising, or moving Change positions slowly taking a break between each position change If you standing feel dizzy sit back down and take a break Encouraged to continue with yearly vaccinations Return to the emergency department if he developed sudden shortness of breath, chest pain, nausea, vomiting, upset stomach or intractable diarrhea Return to the emergency department if you develop fever greater than 101.5 Follow-up with the primary care physician within 1-2 weeks Thank you for [facility] for your healthcare needs Patient Instructions: Hydromorphone (By mouth), Apixaban (By mouth), Naloxone (Into the nose), Blood Thinners (DC) Patient Language: Emirati Stand Alone Forms: General Discharge Information Follow-up/Referrals: Wilbur Jarquin MD [Physician] - 6 Weeks (Call for appt. ) UNKNOWN,DOCTOR [Primary Care Provider] - 1 Week Discharge Medications: New Eliquis 2.5 mg tablet 2.5 mg PO BID 28 Days Qty: 56 0RF lidocaine [Lidoderm] 5 % Adhesive Patch,Medicated 1 patch transdermal DAILY Qty: 15 0RF hydromorphone 4 mg Tablet 4 mg PO Q6H PRN (Reason: Pain Rated 7-10) Qty: 1 0RF naloxone [Narcan] 4 mg/actuation spray,non-aerosol 1 spray intranasal Q2M PRN (Reason: opioid overdose) Qty: 2 0RF Rx Instructions: spray 1 dose into ONE nostril; alternate nostrils w each dose until help arrives Continued albuterol sulfate 90 mcg/actuation HFA aerosol inhaler 2 puff INHALATION Q3-4H PRN (Reason: shortness of breath or wheezing) clonazepam 0.5 mg tablet 0.5 mg PO QID duloxetine 20 mg capsule,delayed release(DR/EC) 20 mg PO .dialy hydroxyzine HCl 25 mg tablet 25 mg PO Q4H ipratropium bromide 21 mcg (0.03 %) spray,non-aerosol 2 spray INTRANASAL DAILY ropinirole 0.5 mg tablet 0.5 mg PO HS hydromorphone 4 mg tablet 4 mg PO Q6H Discontinued methadone 10 mg tablet 5 mg PO DAILY Other Ambulatory Orders: Complete Blood Count no Diff (DAILY) Timeframe: [id number] Location: Determined by Patient Ordered By: Sunshine Zuleta Date of admission: 01/12/25 08:10 Primary Care Provider: UNKNOWN,DOCTOR Admitting Provider: Sukhjinder Bee Attending physician on admission: Sukhjinder Bee Condition: Stable Hospitalist MIPS Heart Failure (Exclusion) Patient has history of Heart Transplant or Left Ventricular Assistive Device?: No IF YES, STOP HERE Heart Failure (Qualifier) Patient has current or prior documentation of LVEF less than or equal to 40%, or mod/servere depressed LVSF?: No IF NO, STOP HERE
[2025-01-18] MEDS: EPOETIN ALFA-EPBX 10,000 UNITS/ML VIAL 10000 UNITS IV PUSH (11:55)
--- NOTE | 2025-01-18 12:50 | P.PNNP_ITS ---
Subjective Date/time seen: 01/18/25 12:50 Interval history: Follow-up for end stage renal disease on hemodialysis. Tolerating dialysis treatment at the time of my visit (seen on HD at 12:40PM); no other issues/events overnight or earlier this morning; pain control seems adequate; no other acute complaints voiced other than the fact that she wants to be discharged. Objective Data Vital Signs Vital Signs: Vital Signs Temp Pulse Resp BP Pulse Ox O2 Del Method O2 Flow Rate 01/18/25 08:40 Nasal Cannula 4 01/18/25 08:00 100 Nasal Cannula 4 01/18/25 04:45 98.2 F 79 20 112/68 100 01/17/25 23:40 98.1 F 81 20 135/71 100 01/17/25 21:38 100 Nasal Cannula 4 01/17/25 20:00 99.1 F 79 16 101/75 100 Intake/Output Intake/Output: Intake & Output 01/15/25 01/16/25 01/17/25 01/18/25 23:59 23:59 23:59 23:59 Intake Total 063 325 5559 690 Output Total 500 750 550 550 Balance 27 463 476 140 Meds/Results Medications: Active Medications Generic Name Dose Route Start Last Admin Trade Name Freq PRN Reason Stop Dose Admin Albuterol 2 puff 01/14/25 18:29 Albuterol Sulfate (*Sp) Aerosol 1 Puff INHALATION Q3HRT PRN shortness of breath or wheezing Albuterol/Ipratropium 3 ml 01/11/25 20:51 01/14/25 13:59 Ipratropium 0.5 Mg/Albuterol Sulfate 2.5 Mg Ampul.Neb 3 Ml INHALATION 3 ml Q6HRT PRN Administration Shortness Of Breath Clonazepam 0.5 mg 01/12/25 09:00 01/17/25 12:53 Clonazepam (*Crx) 0.5 Mg Tablet PO 0.5 mg QID RON Administration Diazepam 5 mg 01/14/25 18:29 01/17/25 05:25 Diazepam (*Crx) 5 Mg Tablet PO 5 mg Q8H PRN Administration Muscle Spasm Diphenhydramine HCl 25 mg 01/13/25 15:00 01/14/25 08:34 Diphenhydramine Hcl Cap 25 Mg Capsule PO 25 mg Q6H PRN Administration Itching Duloxetine HCl 20 mg 01/12/25 01:00 Duloxetine Hcl 20 Mg Capsule.Dr [facility] Hydromorphone HCl 4 mg 01/11/25 22:08 01/17/25 05:24 Hydromorphone Hcl (*Crx) 4 Mg Tablet PO 4 mg Q4H PRN Administration Pain Rated 7-10 Hydromorphone HCl 1 mg 01/14/25 18:29 01/15/25 00:27 Hydromorphone Hcl Inj (*Crx) 1 Mg/Ml Syr IV PUSH 1 mg Q2H PRN Administration Breakthrough Pain Rated 7-10 or NPO Hydromorphone HCl 0.5 mg 01/14/25 18:29 Hydromorphone Hcl Inj (*Crx) 1 Mg/Ml Syr IV PUSH Q2H PRN Breakthrough Pain Rated 4-6 or NPO Hydroxyzine HCl 25 mg 01/12/25 01:00 01/17/25 12:53 Hydroxyzine Hcl 25 Mg Tablet PO 25 mg Q4H [facility] Administration Albumin Human 50 mls @ 999 mls/hr 01/14/25 06:42 Albutein IVPB 02/13/25 06:41 Q10M PRN HYPOTENSION Ibuprofen 800 mg in 200 mls @ 400 mls/hr 01/14/25 18:29 Caldolor 800 Mg/200 Ml IVPB Q6H PRN Breakthrough Pain Rated 1-3 or NPO Ipratropium [place] 2 spray 01/12/25 09:00 01/17/25 10:25 Ipratropium Nasal [place] 0.03% 15 Ml Bottle NASAL 2 spray DAILY [facility] Administration Methadone HCl 5 mg 01/12/25 09:00 01/17/25 10:21 Methadone Hcl (*Crx) 5 Mg Tablet PO 5 mg DAILY [facility] Administration Miscellaneous Information 0 each 01/16/25 00:01 Recommend Dc Of Ibuprofen Since Patient On Dialysis XX 02/15/25 00:00 [facility] Morphine Sulfate 2 mg 01/11/25 19:08 01/14/25 10:24 Morphine Sulfate (*Crx) 2 Mg/Ml Inj IV PUSH 2 mg Q2H PRN Administration Pain Rated 7-10 Naloxone HCl 0.1 mg 01/14/25 18:29 Naloxone Hcl 0.4 Mg/Ml Vial IV PUSH Q2M PRN Opiate Reversal Nicotine 1 patch 01/12/25 16:10 01/17/25 10:25 Nicotine (*Pbkc) 21 Mg Patch TRANSDERM 1 patch DAILY RON Administration Nicotine Polacrilex 4 mg 01/13/25 19:53 Nicotine (*Pbkc) 4 Mg Gum PO Q2H PRN Nicotine Cravings Ondansetron HCl 4 mg 01/14/25 18:29 Ondansetron Inj 4 Mg/2 Ml Vial IV PUSH Q4H PRN Nausea And Vomiting Polyethylene Glycol 17 gm 01/15/25 09:00 01/17/25 10:22 Polyethylene Glycol 3350 17 Gm Powd.Pack PO 17 gm QAM RON Administration Ropinirole HCl 0.5 mg 01/12/25 01:00 01/16/25 20:42 Ropinirole Hcl 0.5 Mg Tablet PO 0.5 mg HS RON Administration Senna/Docusate Sodium 2 tab 01/15/25 09:00 01/17/25 10:22 Senna/Docusate Sodium Tablet PO 2 tab BID RON Administration Radiology Results: ITS Impressions Chest X-Ray 01/11/25 18:24 IMPRESSION: Mild pulmonary vascular congestion, without focal infiltrate or effusion. Hip/Pelvis X-Ray 01/11/25 18:25 IMPRESSION: Acute minimally displaced fracture of the right femoral neck, as detailed above. Knee X-Ray 01/11/25 18:27 IMPRESSION: Degenerative disease without acute fracture. Labs Labs: Laboratory Tests 01/18/25 07:13 01/18/25 07:13 Calcium 10.0
--- NOTE | 2025-01-18 12:59 | PCOTNOTE ---
The patient treatment was not able to be completed on 01/18 due to patient in dialysis and is to be discharging following return from [facility] per RN. Will plan to continue to follow patient.
[2025-01-18] MEDS: LIDOCAINE 5% PATCH 1 PATCH TRANSDERM (14:41)
[2025-01-18] MEDS: NICOTINE (*PBKC) 21 MG PATCH 1 PATCH TRANSDERM (14:41)
--- NOTE | 2025-01-18 16:45 | PC.NURSE ---
Medications placed in a secured bag and given to [facility] upon transport to nursing facility. heating and cooling technician verified all medications. Clonazepam 0.5 mg 46 tablets, Hydromorphone 4 mg 35 tablets, Methadone 10 mg 5.5 tablets, and a bottle of Duloxetine, Ropinirole, Hydroxyzine HCL tablets. Patient's vape, 2 lighters, and homeopathic medication for restless legs syndrome. All belongings returned upon discharge upon transfer to [facility].
--- NOTE | 2025-01-18 18:26 | PC.NURSE ---
at 1405 today, cistern room working supervisor called to give this rn report about dialysis treatment and pt was ready to be transported back from dialysis. cistern room working supervisor stated that pt did well but she noticed that pt ingested an unknown pill that was in her purse. cistern room working supervisor stated that pt asked her to not tell this rn about her ingesting the pill from her purse. this rn notified charge nurse and hospitalist. charge nurse, snt, and this rn went to dialysis to transport her back and plan to speak with pt about the unknown medication. once we got in the room, dry charge process attendant inquired about unknown pill. this rn and house shorer was present. the pt stated it was for restless leg syndrome. dry charge process attendant told pt that we need to confiscate medication and asked if she could look in her purse for any more pill bottles that she may have that we don't know about. pt agreed. the pill bottle that had the medication she took in dialysis was confiscated and put in the safe along with two lighters. pt was informed that she will get her belongings back at time of discharge. pt agreed with no incident.
== END 2025-01-18 16:45 | DRG 480 ==
LOC: ANHED 18:42 → ANH3MEDSUR 19:48
PROVIDERS: Internal Medicine Nephrology; Orthopaedic Surgery; Admitting Provider General Practice; Emergency Provider Emergency Medicine; Visit Provider Student in an Organized Health Care Education/Training Program
PROC: 0QH634Z Insertion of Internal Fixation Device into Right Upper Femur, Percutaneous Approach (ICD-10-PCS; principal; 2025-01-14 15:00)
DX: S72.001A Fracture of unspecified part of neck of right femur, initial encounter for closed fracture (principal); E43 Unspecified severe protein-calorie malnutrition; N18.6 End stage renal disease; J96.11 Chronic respiratory failure with hypoxia; Z68.1 Body mass index [BMI] 19.9 or less, adult; W01.0XXA Fall on same level from slipping, tripping and stumbling without subsequent striking against object, initial encounter; D63.1 Anemia in chronic kidney disease; G89.29 Other chronic pain; F31.9 Bipolar disorder, unspecified; F17.210 Nicotine dependence, cigarettes, uncomplicated; J44.9 Chronic obstructive pulmonary disease, unspecified; M81.0 Age-related osteoporosis without current pathological fracture; Z99.81 Dependence on supplemental oxygen; Z93.3 Colostomy status; Z79.891 Long term (current) use of opiate analgesic; Z99.2 Dependence on renal dialysis; Z90.49 Acquired absence of other specified parts of digestive tract
CPT/HCPCS: 36415; 71046; 73502; 73562; 80048; 80053; 83735; 84100; 85025; 85027; 85610; 85730; 86706; 86850; 86900; 86901; 87340; 87641; 93005; 94640; 96374; 96375; 96376; 97110; 97116; 97161; 97165; 97530; 97535; 99199; 99285; A9270; C1713; G0257; G0378; G0379; J0690; J1100; J1171; J1644; J2003; J2060; J2270; J2405; J3010; J7030; J7040; J7050; P9047; Q5105